=== PATIENT | female | born 1950 | race Caucasian/White ===

== ENCOUNTER 2016-06-10 09:29 | Outpatient (RCR) | payer MEDICARE ==
--- OUTSIDE RECORDS SUMMARY | 2016-03-18 09:58 | XMS REPORT | Continuity of Care Document ---
Author Author [facility] Organization [facility] Address Unknown Phone Unavailable Care Team Providers Care Housing Relocation Name Role Phone Merritt Palomino PCP Unavailable Source Comments Some departments are not documenting in the electronic medical record. If you do not see the information that you expected, contact Release of Information in the Health Information Management department at [phone] for further assistance in locating additional records.[facility] Active Allergies and Adverse Reactions Allergen Noted Date Severity Reactions Comments Ciprofloxacin 07/18/2008 Guaifenesin 07/18/2008 Macrodantin 07/18/2008 UNKNOWN Plaquenil 07/18/2008 Prevacid 07/18/2008 Quinolones 07/18/2008 Sulfa (Sulfonamide 07/18/2008 Antibiotics) Current Medications Prescription Sig. Disp. Refills Start End Date Status Date levothyroxine (SYNTHROID) Take 88 mcg by mouth Active 75 mcg PO tablet daily. CETIRIZINE HCL (ZYRTEC Take by mouth daily. Active PO) citalopram (CELEXA) 10 mg Take 10 mg by mouth Active PO tablet daily. Cholecalciferol (Vitamin Take 1 Cap by mouth. Active D3) (VITAMIN D) 2,000 unit PO Cap [place]-3 Fatty Take 2 Caps by mouth Active Acids-Vitamin E (FISH daily. OIL) 1,000 mg PO Cap folic acid (FOLVITE) 1 mg Take 1 mg by mouth daily. Active tablet pantoprazole DR Take 40 mg by mouth Active (PROTONIX) 40 mg tablet daily. Fenofibrate Micronized Take 130 mg by mouth Active 130 mg cap daily. atorvastatin (LIPITOR) 80 Take 80 mg by mouth Active mg tablet daily. aspirin EC 81 mg tablet Take 81 mg by mouth Active daily. COQ10 (UBIQUINOL) PO Take 1 Tab by mouth Active daily. 7-OXODEHYDROEPIANDROSTERO Use 2 Tabs as directed Active NE (7-KETO DHEA MISC) daily. BIOTIN (BULK) MISC Use 1 Tab as directed Active daily. PSEUDOEPHEDRINE HCL Take by mouth. Take this Active (SUDAFED 12 HOUR PO) in the AM METOPROLOL TARTRATE PO Take by mouth at bedtime Active daily. other medication 1 Dose. IBIG tx monthly Active Active Problems Problem Noted Date Nasal obstruction 06/02/2015 Nasal defect 01/21/2015 Basal cell carcinoma of nose 01/20/2015 Renal insufficiency 03/07/2014 Vitamin D deficiency 06/07/2013 Encounter for long-term (current) use of NSAIDs 07/12/2011 Joint pain 01/18/2011 Rheumatoid arthritis(714.0) 01/18/2011 Generalized osteoarthritis 01/18/2011 Encounter for long-term (current) use of high-risk medication 01/18/2011 Lymphoma (HCC) 01/18/2011 RA (rheumatoid arthritis) (HCC) Non Hodgkin's lymphoma (HCC) Most Recent Encounters Date Type Specialty Providers Description 03/14/2016 Office Visit Otolaryngology Kin Pierre MD Nasal defect (Primary Dx) Social History Tobacco Use Types Packs/Day Years Used Date Former Smoker Cigarettes 0.5 9 Quit: 05/29/1976 Smokeless Tobacco: Never Used Tobacco Cessation: Counseling Given: No Comments: Alcohol Use Drinks/Week oz/Week Comments Yes 1-2 Standard 0.6 - 1.2 occasional drinks or equivalent Last Filed Vital Signs Vital Sign Reading Time Taken Blood Pressure 120/77 03/14/2016 9:05 AM CDT Pulse 77 03/14/2016 9:05 AM CDT Temperature 36.6 C (97.9 F) 09/25/2015 8:13 AM CDT Respiratory Rate 16 09/25/2015 8:13 AM CDT Height 1.626 m (5' 4") 03/14/2016 9:05 AM CDT Weight 58.242 kg (128 lb 6.4 oz) 03/14/2016 9:05 AM CDT Body Mass Index 22.03 03/14/2016 9:05 AM CDT Oxygen Saturation 98% 01/22/2015 6:09 AM CDT Plan of Care Health Maintenance Due Date Last Done Comments Hepatitis C Screening 1950 Physical (Comprehensive) 1955 Exam Pertussis Vaccine 1959 Tetanus Vaccine 1965 Shingles Vaccine 2008 Breast Cancer Screening 07/21/2011 07/21/2009 Osteoporosis Screening 2013 Prevnar/Pneumovax (#1) 2013 Influenza Vaccine 01/28/2016 Colorectal Cancer 07/21/2019 07/21/2009 Screening Results from Last 3 Months Not on file
[2016-03-18 10:07] LABS: BASOPHILS # (AUTO) 0.2 10^3/uL (0.0-0.1); BASOPHILS % (AUTO) 2 % (0-10); EOSINOPHILS # (AUTO) 0.6 10^3/uL (0.0-0.3); EOSINOPHILS % (AUTO) 7 % (0-10); LYMPHOCYTES # (AUTO) 1.8 X 10^3 (1.0-4.0); LYMPHOCYTES % (AUTO) 21 % (12-44); MEAN CORPUSCULAR HEMOGLOBIN 30 PG (25-34); MEAN CORPUSCULAR HGB CONC 35 G/DL (32-36); MEAN CORPUSCULAR VOLUME 88 FL (80-99); MEAN PLATELET VOLUME 9.5 FL (7.4-10.4); MONOCYTES % (AUTO) 12 % (0-12); NEUTROPHILS # (AUTO) 4.9 X 10^3 (1.8-7.8); NEUTROPHILS % (AUTO) 58 % (42-75); PLATELET COUNT 561 10^3/uL (130-400); RED BLOOD COUNT 4.75 10^6/uL (4.35-5.85); RED CELL DISTRIBUTION WIDTH 14.9 % (10.0-14.5); WHITE BLOOD COUNT 8.6 10^3/uL (4.3-11.0)
[2016-03-18 10:35] LABS: ALBUMIN 4.6 G/DL (3.2-4.5); BILIRUBIN,TOTAL 0.5 MG/DL (0.1-1.0); CALCIUM 9.7 MG/DL (8.5-10.1); CREATININE SERUM 1.18 MG/DL (0.60-1.30); POTASSIUM 3.7 MMOL/L (3.6-5.0); TOTAL PROTEIN 6.5 G/DL (6.4-8.2)
[2016-03-19 02:55] LABS: IMMUNOGLOBULIN IGA 10 mg/dL (71-263); IMMUNOGLOBULIN IGG 271 mg/dL (672-1680)
[2016-03-21 09:49] LABS: IMMUNOGLOBULIN IGM 10 mg/dL (47-209)
[~2016-06-10 09:29] MED LIST: ACETAMINOPHEN 500 MG TAB (TYLENOL) CANCER CTR ONE; ACETAMINOPHEN 500 MG TAB (TYLENOL) PO SCH; ASP81TEC PO; ATOR80TA PO; CEPH-38 PO; CETI10TA17; CETI10TA17 PO; CHOL2000 PO; CITA10TA PO; CLAR-19 PO; CLPD75T PO; DIPH1TAB45 PO; FERR325C PO; FOLI0.8T PO; IMMUNE GLOBULIN,GAMMA (IGG) 200 ML IV SCH; IRBE300T9; LEVO75TA57 PO; LOSA100T7 PO; LRT10T PO; LSRT50T PO; LVT.025T PO; LVT.05T PO; NEBI5TAB8 PO; NF-ESOM40C PO; OMG1KC PO; OXYC-12 PO; PIRO20CA2 PO; PNT40TEC PO; PROBIOTIC1 EACH PO; SIMV20TA3 PO; diphenhydrAMINE 25 MG TAB (BENADRYL) CANCER CENTER PO ONE; diphenhydrAMINE 25 MG TAB (BENADRYL) PO SCH
[2016-06-10 09:48] LABS: BASOPHILS # (AUTO) 0.3 10^3/uL (0.0-0.1); BASOPHILS % (AUTO) 3 % (0-10); EOSINOPHILS # (AUTO) 0.4 10^3/uL (0.0-0.3); EOSINOPHILS % (AUTO) 4 % (0-10); LYMPHOCYTES # (AUTO) 1.7 X 10^3 (1.0-4.0); LYMPHOCYTES % (AUTO) 18 % (12-44); MEAN CORPUSCULAR HEMOGLOBIN 31 PG (25-34); MEAN CORPUSCULAR HGB CONC 34 G/DL (32-36); MEAN CORPUSCULAR VOLUME 90 FL (80-99); MEAN PLATELET VOLUME 10.5 FL (7.4-10.4); MONOCYTES # (AUTO) 0.9 X 10^3 (0.0-1.0); MONOCYTES % (AUTO) 9 % (0-12); NEUTROPHILS # (AUTO) 6.4 X 10^3 (1.8-7.8); NEUTROPHILS % (AUTO) 66 % (42-75); PLATELET COUNT 408 10^3/uL (130-400); RED BLOOD COUNT 4.53 10^6/uL (4.35-5.85); RED CELL DISTRIBUTION WIDTH 15.2 % (10.0-14.5); WHITE BLOOD COUNT 9.7 10^3/uL (4.3-11.0)
[2016-06-10 10:05] LABS: ALBUMIN 4.6 G/DL (3.2-4.5); BILIRUBIN,TOTAL 0.6 MG/DL (0.1-1.0); CALCIUM 10.2 MG/DL (8.5-10.1); CREATININE SERUM 1.32 MG/DL (0.60-1.30); POTASSIUM 3.9 MMOL/L (3.6-5.0)
[2016-06-11 03:50] LABS: IMMUNOGLOBULIN IGA 9 mg/dL (71-263); IMMUNOGLOBULIN IGG 758 mg/dL (672-1680)
[2016-06-13 08:23] LABS: IMMUNOGLOBULIN IGM 10 mg/dL (47-209)
== END 2016-06-16 | disposition home or self-care (01) ==
LOC: ONC 09:29
PROVIDERS: ATTEND Internal Medicine Hematology & Oncology
DX: C85.90 Non-Hodgkin lymphoma, unspecified, unspecified site (principal); D80.1 Nonfamilial hypogammaglobulinemia; M06.9 Rheumatoid arthritis, unspecified; N18.3 Chronic kidney disease, stage 3 (moderate); Z79.899 Other long term (current) drug therapy
CPT/HCPCS: 36415; 80053; 82784; 83615; 85025; 96365; 96366; 99213

== ENCOUNTER 2016-09-16 10:30 | Outpatient (RCR) | payer MEDICARE ==
--- OUTSIDE RECORDS SUMMARY | 2016-06-23 08:57 | XMS REPORT | Continuity of Care Document ---
Author Author [facility] Organization [facility] Address Unknown Phone Unavailable Care Team Providers Care Punch Finisher Name Role Phone Merritt Palomino PCP Unavailable Source Comments Some departments are not documenting in the electronic medical record. If you do not see the information that you expected, contact Release of Information in the Health Information Management department at [phone] for further assistance in locating additional records.[facility] Active Allergies and Adverse Reactions [...] D3) (VITAMIN D) 2,000 unit PO Cap [place]-3 Fatty Take 2 Caps by mouth Active [...] Recent Encounters Date Type Specialty Providers Description 05/24/2016 Office Visit Otolaryngology Kin Pierre MD Nasal defect (Primary Dx) 05/20/2016 Office Visit Otolaryngology Kin Pierre MD Nasal defect (Primary Dx); Nasal obstruction; Facial aging Social History Tobacco Use Types Packs/Day Years Used Date Former Smoker Cigarettes 0.5 9 Quit: 05/29/1976 Smokeless Tobacco: Never Used Tobacco Cessation: Counseling Given: No Comments: Alcohol Use Drinks/Week oz/Week Comments Yes 1-2 Standard 0.6 - 1.2 occasional drinks or equivalent Last Filed Vital Signs Vital Sign Reading Time Taken Blood Pressure 132/83 05/24/2016 9:06 AM RICE FARMER Pulse 69 05/24/2016 9:06 AM RICE FARMER Temperature 36.6 C (97.9 F) 09/25/2015 8:13 AM CDT Respiratory Rate 16 09/25/2015 8:13 AM CDT Height 1.626 m (5' 4") 05/24/2016 9:06 AM RICE FARMER Weight 59.966 kg (132 lb 3.2 oz) 05/24/2016 9:06 AM RICE FARMER Body Mass Index 22.68 05/24/2016 9:06 AM RICE FARMER Oxygen Saturation 98% 01/22/2015 6:09 AM CDT Plan of Care Date Type Specialty Providers Description 06/27/2016 Appointment Otolaryngology Kin Pierre MD [address] [facility] [address] [place] [address] [phone] (Fax) Health Maintenance Due Date Last Done Comments Hepatitis C Screening 1950 Physical (Comprehensive) 1955 Exam Pertussis Vaccine 1959 Tetanus Vaccine 1965 Shingles Vaccine 2008 Breast Cancer Screening 07/21/2010 07/21/2009 Osteoporosis Screening 2013 Prevnar/Pneumovax (#1) 2013 Influenza Vaccine 01/28/2016 Colorectal Cancer 07/21/2019 07/21/2009 Screening Results from Last 3 Months Not on file
[~2016-09-16 10:30] MED LIST changes: -ACETAMINOPHEN 500 MG TAB (TYLENOL) CANCER CTR ONE; +ACETAMINOPHEN 500 MG TAB (TYLENOL) CANCER CTR PO PRN; -ACETAMINOPHEN 500 MG TAB (TYLENOL) PO SCH; -diphenhydrAMINE 25 MG TAB (BENADRYL) CANCER CENTER PO ONE; +diphenhydrAMINE 25 MG TAB (BENADRYL) CANCER CENTER PO SCH; -diphenhydrAMINE 25 MG TAB (BENADRYL) PO SCH
[2016-09-16 10:48] LABS: BASOPHILS # (AUTO) 0.2 10^3/uL (0.0-0.1); BASOPHILS % (AUTO) 3 % (0-10); EOSINOPHILS # (AUTO) 0.3 10^3/uL (0.0-0.3); EOSINOPHILS % (AUTO) 4 % (0-10); LYMPHOCYTES # (AUTO) 2.2 X 10^3 (1.0-4.0); LYMPHOCYTES % (AUTO) 29 % (12-44); MEAN CORPUSCULAR HEMOGLOBIN 31 PG (25-34); MEAN CORPUSCULAR HGB CONC 34 G/DL (32-36); MEAN CORPUSCULAR VOLUME 90 FL (80-99); MEAN PLATELET VOLUME 10.7 FL (7.4-10.4); MONOCYTES # (AUTO) 0.8 X 10^3 (0.0-1.0); MONOCYTES % (AUTO) 11 % (0-12); NEUTROPHILS # (AUTO) 4.1 X 10^3 (1.8-7.8); NEUTROPHILS % (AUTO) 54 % (42-75); PLATELET COUNT 417 10^3/uL (130-400); RED BLOOD COUNT 4.31 10^6/uL (4.35-5.85); RED CELL DISTRIBUTION WIDTH 15.1 % (10.0-14.5); WHITE BLOOD COUNT 7.5 10^3/uL (4.3-11.0)
[2016-09-16 11:08] LABS: ALBUMIN 4.2 G/DL (3.2-4.5); BILIRUBIN,TOTAL 0.5 MG/DL (0.1-1.0); CALCIUM 9.4 MG/DL (8.5-10.1); CREATININE SERUM 1.42 MG/DL (0.60-1.30); TOTAL PROTEIN 6.5 G/DL (6.4-8.2)
[2016-09-17 02:21] LABS: IMMUNOGLOBULIN IGA 7 mg/dL (71-263); IMMUNOGLOBULIN IGG 838 mg/dL (672-1680)
[2016-09-17 15:41] LABS: IMMUNOGLOBULIN IGM 12 mg/dL (47-209)
== END 2016-09-21 | disposition home or self-care (01) ==
LOC: ONC 10:30
PROVIDERS: ATTEND Internal Medicine Hematology & Oncology
DX: C85.90 Non-Hodgkin lymphoma, unspecified, unspecified site (principal); D80.1 Nonfamilial hypogammaglobulinemia; M06.9 Rheumatoid arthritis, unspecified; N18.3 Chronic kidney disease, stage 3 (moderate); Z79.899 Other long term (current) drug therapy
CPT/HCPCS: 36415; 80053; 82784; 84443; 85025; 96365; 96366; 99213

== ENCOUNTER 2017-06-30 09:28 | Outpatient (RCR) | payer MEDICARE ==
[2017-04-07 09:06] LABS: BASOPHILS # (AUTO) 0.2 10^3/uL (0.0-0.1); BASOPHILS % (AUTO) 1 % (0-10); EOSINOPHILS # (AUTO) 0.4 10^3/uL (0.0-0.3); EOSINOPHILS % (AUTO) 2 % (0-10); HEMATOCRIT 42 % (35-52); HEMOGLOBIN 14.4 G/DL (11.5-16.0); LYMPHOCYTES # (AUTO) 2.7 X 10^3 (1.0-4.0); LYMPHOCYTES % (AUTO) 16 % (12-44); MEAN CORPUSCULAR HEMOGLOBIN 31 PG (25-34); MEAN CORPUSCULAR HGB CONC 34 G/DL (32-36); MEAN CORPUSCULAR VOLUME 91 FL (80-99); MEAN PLATELET VOLUME 9.1 FL (7.4-10.4); MONOCYTES # (AUTO) 1.4 X 10^3 (0.0-1.0); MONOCYTES % (AUTO) 8 % (0-12); NEUTROPHILS # (AUTO) 12.5 X 10^3 (1.8-7.8); NEUTROPHILS % (AUTO) 73 % (42-75); PLATELET COUNT 611 10^3/uL (130-400); RED CELL DISTRIBUTION WIDTH 14.2 % (10.0-14.5); WHITE BLOOD COUNT 17.1 10^3/uL (4.3-11.0)
[2017-04-07 09:26] LABS: ALBUMIN 4.5 GM/DL (3.2-4.5); BILIRUBIN,TOTAL 0.6 MG/DL (0.1-1.0); CALCIUM 10.1 MG/DL (8.5-10.1); CREATININE SERUM 1.11 MG/DL (0.60-1.30); POTASSIUM 3.8 MMOL/L (3.6-5.0); TOTAL PROTEIN 6.7 GM/DL (6.4-8.2)
[2017-06-22 12:23] LABS: BASOPHILS # (AUTO) 0.2 10^3/uL (0.0-0.1); BASOPHILS % (AUTO) 2 % (0-10); EOSINOPHILS # (AUTO) 0.3 10^3/uL (0.0-0.3); EOSINOPHILS % (AUTO) 3 % (0-10); HEMATOCRIT 41 % (35-52); HEMOGLOBIN 14.2 G/DL (11.5-16.0); LYMPHOCYTES # (AUTO) 3.2 X 10^3 (1.0-4.0); LYMPHOCYTES % (AUTO) 30 % (12-44); MEAN CORPUSCULAR HEMOGLOBIN 32 PG (25-34); MEAN CORPUSCULAR HGB CONC 35 G/DL (32-36); MEAN CORPUSCULAR VOLUME 91 FL (80-99); MEAN PLATELET VOLUME 10.2 FL (7.4-10.4); MONOCYTES # (AUTO) 0.8 X 10^3 (0.0-1.0); MONOCYTES % (AUTO) 7 % (0-12); NEUTROPHILS # (AUTO) 6.3 X 10^3 (1.8-7.8); NEUTROPHILS % (AUTO) 59 % (42-75); PLATELET COUNT 448 10^3/uL (130-400); RED BLOOD COUNT 4.49 10^6/uL (4.35-5.85); RED CELL DISTRIBUTION WIDTH 14.4 % (10.0-14.5); WHITE BLOOD COUNT 10.8 10^3/uL (4.3-11.0)
[2017-06-22 12:43] LABS: ALBUMIN 4.4 GM/DL (3.2-4.5); BILIRUBIN,TOTAL 0.6 MG/DL (0.1-1.0); CALCIUM 10.2 MG/DL (8.5-10.1); CREATININE SERUM 1.06 MG/DL (0.60-1.30); POTASSIUM 4.4 MMOL/L (3.6-5.0); TOTAL PROTEIN 7.4 GM/DL (6.4-8.2)
== END 2017-07-06 | disposition home or self-care (01) ==
LOC: ONC 09:28
PROVIDERS: ATTEND Internal Medicine Hematology & Oncology
DX: C85.90 Non-Hodgkin lymphoma, unspecified, unspecified site (principal); D80.1 Nonfamilial hypogammaglobulinemia; M06.9 Rheumatoid arthritis, unspecified; N18.3 Chronic kidney disease, stage 3 (moderate); Z79.899 Other long term (current) drug therapy
CPT/HCPCS: 36415; 80053; 82784; 85025; 96365; 96366; 99213

== ENCOUNTER 2017-07-28 09:20 | Outpatient (RCR) | payer MEDICARE | END 2017-08-23 13:19 | disposition home or self-care (01) | LOC: ONC 09:20 | PROVIDERS: ATTEND Internal Medicine Hematology & Oncology | DX: C85.90 Non-Hodgkin lymphoma, unspecified, unspecified site (principal); D80.1 Nonfamilial hypogammaglobulinemia; M06.9 Rheumatoid arthritis, unspecified; N18.3 Chronic kidney disease, stage 3 (moderate); Z79.899 Other long term (current) drug therapy | CPT/HCPCS: 96365; 96366 ==

== ENCOUNTER 2017-09-28 10:09 | Day surgery (SDC) | payer MEDICARE ==
[2017-09-28] VITALS (13 sets, daily range): BP systolic 90–135; BP diastolic 59–90
[~2017-09-28] VITALS: Ht 162.6 cm; Wt 59.0 kg
[~2017-09-28 10:09] MED LIST changes: -ACETAMINOPHEN 500 MG TAB (TYLENOL) CANCER CTR PO PRN; -IMMUNE GLOBULIN,GAMMA (IGG) 200 ML IV SCH; -diphenhydrAMINE 25 MG TAB (BENADRYL) CANCER CENTER PO SCH
[2017-09-28 10:25] LABS: BASOPHILS # (AUTO) 0.2 10^3/uL (0.0-0.1); BASOPHILS % (AUTO) 2 % (0-10); EOSINOPHILS # (AUTO) 0.3 10^3/uL (0.0-0.3); EOSINOPHILS % (AUTO) 3 % (0-10); HEMATOCRIT 39 % (35-52); HEMOGLOBIN 13.8 G/DL (11.5-16.0); LYMPHOCYTES # (AUTO) 3.9 X 10^3 (1.0-4.0); LYMPHOCYTES % (AUTO) 36 % (12-44); MEAN CORPUSCULAR HEMOGLOBIN 32 PG (25-34); MEAN CORPUSCULAR HGB CONC 35 G/DL (32-36); MEAN CORPUSCULAR VOLUME 90 FL (80-99); MEAN PLATELET VOLUME 10.3 FL (7.4-10.4); MONOCYTES # (AUTO) 0.8 X 10^3 (0.0-1.0); MONOCYTES % (AUTO) 8 % (0-12); NEUTROPHILS # (AUTO) 5.7 X 10^3 (1.8-7.8); NEUTROPHILS % (AUTO) 52 % (42-75); PLATELET COUNT 356 10^3/uL (130-400); RED BLOOD COUNT 4.35 10^6/uL (4.35-5.85); RED CELL DISTRIBUTION WIDTH 14.9 % (10.0-14.5)
[2017-09-28] MEDS ORDERED: NITROGLYCERIN 0.4 MG SL TABS BTL 25'S SL PRN (10:30)
[2017-09-28] MEDS ORDERED: ASPIRIN 81 MG CHEW (CHILDREN'S ASA) PO ONE (10:30)
[2017-09-28 10:43] LABS: INR 0.9 (0.8-1.4); PROTHROMBIN TIME PATIENT 11.9 SEC (12.2-14.7)
[2017-09-28 10:51] LABS: ALANINE AMINOTRANSFERASE 26 U/L (0-55); ALBUMIN 4.7 GM/DL (3.2-4.5); ALKALINE PHOSPHATASE 74 U/L (40-136); BILIRUBIN,TOTAL 0.9 MG/DL (0.1-1.0); BUN/CREATININE RATIO 17; CARBON DIOXIDE 25 MMOL/L (21-32); CHLORIDE 106 MMOL/L (98-107); CREATININE SERUM 0.98 MG/DL (0.60-1.30); GFR ESTIMATED 56; GLUCOSE 95 MG/DL (70-105); MAGNESIUM 2.3 MG/DL (1.8-2.4); POTASSIUM 3.1 MMOL/L (3.6-5.0); SODIUM 142 MMOL/L (135-145); TOTAL PROTEIN 7.2 GM/DL (6.4-8.2)
--- NOTE | 2017-09-28 10:57 | Diagnostic Imaging Report ---
INDICATION: Chest pain. TIME OF EXAM: 10:32 AM Correlation is made with prior study from 11/03/2014. FINDINGS: Changes of median sternotomy and CABG are noted. The heart size is stable. The lungs are clear. No infiltrate or failure is seen. No effusion or pneumothorax is identified. IMPRESSION: No acute cardiopulmonary process is detected. Dictated by: Dictated on workstation # [id number]
[2017-09-28 10:58] LABS: MYOGLOBIN SERUM 247.8 NG/ML (10.0-92.0)
--- NOTE | 2017-09-28 11:20 | ED Chest Pain ---
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 Nursing Sepsis Screen: No Definite Risk Source: patient, old records Exam Limitations: no limitations History of Present Illness Date Seen by Provider: September 28, 2017 Time Seen by Provider: 10:11 Initial Comments This 67-year-old woman with known coronary artery disease status post CABG presents to the emergency room with complaints of chest pain that started about 15 minutes prior to arrival. She rates the pain at about 5/10. She has not yet taken aspirin today. She does not take nitroglycerin at home. She had a cardiac catheterization in 2013 for treatment of STEMI demonstrating occlusion of a vein graft. The vein graft was opened with thrombectomy and angioplasty. She had a stress test March 2016 showing no significant ischemia or infarct. Ejection fraction was 61 percent. Patient denies any associated symptoms such as shortness of breath, diaphoresis, lightheadedness, nausea, etc. Her primary bottle washer machine is Dr. Messer. Allergies and Home Medications Allergies Coded Allergies: Iodinated Contrast- Oral and IV Dye (Verified Allergy, Intermediate, hives , 11/04/13) Sulfa (Sulfonamide Antibiotics) (Verified Allergy, Unknown, 10/21/08) ciprofloxacin (Verified Allergy, Unknown, 10/21/08) guaifenesin (Verified Allergy, Unknown, 10/21/08) hydroxychloroquine (Verified Allergy, Unknown, 10/21/08) iopamidol (Verified Allergy, Unknown, 10/21/08) nitrofurantoin (Verified Allergy, Unknown, 10/21/08) Home Medications Amlodipine Besylate 5 Mg Tablet, 5 MG PO DAILY, (Reported) Aspirin 81 Mg Tablet.dr, 81 MG PO HS, (Reported) Atorvastatin Calcium 40 Mg Tablet, 40 MG PO HS, (Reported) Atorvastatin Calcium 80 Mg Tablet, 80 MG PO HS Prescribed by: ZIA MESSER on 09/28/17 8281 Cholecalciferol (Vitamin D3) 2,000 Unit Capsule, 2,000 UNIT PO DAILY, (Reported) Citalopram Hydrobromide 10 Mg Tablet, 10 MG PO DAILY, (Reported) Fenofibrate,Micronized 67 Mg Capsule, 67 MG PO HS, (Reported) Fish Oil/Dha/Epa 1 Each Capsule, 1,200 MG PO BID, (Reported) Levothyroxine Sodium 88 Mcg Tablet, 88 MCG PO DAILY, (Reported) Liraglutide 0.6 Mg/0.1 Ml Pen.injctr, 0.9-1.2 MG SC HS, (Reported) Loratadine 10 Mg Tablet, 10 MG PO DAILY PRN for ALLERGIES, (Reported) Metoprolol Succinate 50 Mg Tab.er.24h, 50 MG PO HS, (Reported) Ticagrelor 90 Mg Tablet, 90 MG PO BID Prescribed by: ZIA MESSER on 09/28/17 9822 Patient Home Medication List Home Medication List Reviewed: Yes Review of Systems Constitutional: no symptoms reported EENTM: No Symptoms Reported Respiratory: No Symptoms Reported Cardiovascular: See HPI Gastrointestinal: No Symptoms Reported Genitourinary: No Symptoms Reported Musculoskeletal: no symptoms reported Skin: no symptoms reported Psychiatric/Neurological: No Symptoms Reported Endocrine: No Symptoms Reported Past Rhgqlll-Rffakk-Szyini Hx Patient Social History Alcohol Use: Occasionally Uses Recreational Drug Use: No Smoking Status: Never a Smoker Recent Foreign Travel: No Contact w/Someone Who Travel: No Recent Infectious Disease Expo: No Recent Hopitalizations: Yes Immunizations Up To Date Tetanus Booster (TDap): Unknown Date of Pneumonia Vaccine: Aug 09, 2010 Past Medical History Abdominal, CABG, Gallbladder, Orthopedic Respiratory: No Cardiac: Yes (TRIPLE BYPASS 10/2013) Hypertension Neurological: No Reproductive Disorders: No (HYST) Gastrointestinal: Yes (GB REMOVED, INCISIONAL HERNIA'S) Gall Bladder Disease Musculoskeletal: Yes Osteoporosis, Arthritis Endocrine: Yes (AUTO IMMUNE DEFINICY SEE DR FRANCO) Hypothyroidsim Cancer: Yes ( nonhodgekins lymphoma) Skin Psychosocial: No Integumentary: No Blood Disorders: No Adverse Reaction/Blood Tranf: No Physical Exam Vital Signs Vital Signs - First Documented 09/28/17 10:09 Temp 97.1 Pulse 92 Resp 18 B/P (MAP) 170/103 (125) Pulse Ox 98 O2 Delivery Room Air Capillary Refill : Less Than 3 Seconds General Appearance: No Apparent Distress, WD/WN, Thin HEENT: PERRL/EOMI, Normal ENT Inspection Respiratory: Chest Non Tender, Lungs Clear, Normal Breath Sounds, No Accessory Muscle Use, No Respiratory Distress Cardiovascular: Regular Rate, Rhythm, No Edema, No Murmur Gastrointestinal: Normal Bowel Sounds, Non Tender, Soft Extremity: Normal Capillary Refill, Normal Inspection, Non Tender, No Calf Tenderness Neurologic/Psychiatric: Alert, Oriented x3, No Motor/Sensory Deficits, Normal Mood/Affect, client engagement specialist II-XII Norm as Tested Skin: Normal Color, Warm/Dry Progress/Results/Core Measures Lab Results Laboratory Tests Test 09/28/17 10:18 Range/Units White Blood Count 11.0 4.3-11.0 10^3/uL Red Blood Count 4.35 4.35-5.85 10^6/uL Hemoglobin 13.8 11.5-16.0 G/DL Hematocrit 39 35-52 % Mean Corpuscular Volume 90 80-99 FL Mean Corpuscular Hemoglobin 32 25-34 PG Mean Corpuscular Hemoglobin Concent 35 32-36 G/DL Red Cell Distribution Width 14.9 H 10.0-14.5 % Platelet Count 356 130-400 10^3/uL Mean Platelet Volume 10.3 7.4-10.4 FL Neutrophils (%) (Auto) 52 42-75 % Lymphocytes (%) (Auto) 36 12-44 % Monocytes (%) (Auto) 8 0-12 % Eosinophils (%) (Auto) 3 0-10 % Basophils (%) (Auto) 2 0-10 % Neutrophils # (Auto) 5.7 1.8-7.8 X 10^3 Lymphocytes # (Auto) 3.9 1.0-4.0 X 10^3 Monocytes # (Auto) 0.8 0.0-1.0 X 10^3 Eosinophils # (Auto) 0.3 0.0-0.3 10^3/uL Basophils # (Auto) 0.2 H 0.0-0.1 10^3/uL Prothrombin Time 11.9 L 12.2-14.7 SEC INR Comment 0.9 0.8-1.4 Activated Partial Thromboplast Time 29 24-35 SEC Sodium Level 142 135-145 MMOL/L Potassium Level 3.1 L 3.6-5.0 MMOL/L Chloride Level 106 98-107 MMOL/L Carbon Dioxide Level 25 21-32 MMOL/L Anion Gap 11 5-14 MMOL/L Blood Urea Nitrogen 17 7-18 MG/DL Creatinine 0.98 0.60-1.30 MG/DL Estimat Glomerular Filtration Rate 56 BUN/Creatinine Ratio 17 Glucose Level 95 70-105 MG/DL Calcium Level 10.0 8.5-10.1 MG/DL Magnesium Level 2.3 1.8-2.4 MG/DL Total Bilirubin 0.9 0.1-1.0 MG/DL Aspartate Amino Transf (AST/SGOT) 56 H 5-34 U/L Alanine Aminotransferase (ALT/SGPT) 26 0-55 U/L Alkaline Phosphatase 74 40-136 U/L Myoglobin 247.8 H 10.0-92.0 NG/ML Troponin I < 0.30 <0.30 NG/ML Total Protein 7.2 6.4-8.2 GM/DL Albumin 4.7 H 3.2-4.5 GM/DL Smear Scan My Orders Orders - KATRIN NEGRON MD Cbc With Automated Diff (09/28/17 10:11) Magnesium (09/28/17 10:11) O2 (09/28/17 10:11) Monitor-Rhythm Ecg Trace Only (09/28/17 10:11) Saline Lock/Iv-Start (09/28/17 10:11) Chest 1 View, Ap/Pa Only (09/28/17 10:11) Ekg Tracing (09/28/17 10:11) Cardiac Profile 1 (09/28/17 10:11) Comprehensive Metabolic Panel (09/28/17 10:11) Myoglobin Serum (09/28/17 10:11) Protime With Inr (09/28/17 10:11) Partial Thromboplastin Time (09/28/17 10:11) Lipid Panel (09/29/17 06:00) Aspirin Chewable Tablet (Baby Aspirin Ch (09/28/17 10:30) Nitroglycerin 0.4 Mg Btl 25's (Nitrostat (09/28/17 10:30) Medications Given in ED Current Medications Medications Dose Ordered Sig/Alyson Route Start Time Stop Time Status Last Admin Dose Admin Aspirin 324 mg ONCE ONCE PO 09/28/17 10:30 09/28/17 10:31 DC 09/28/17 10:28 324 MG Nitroglycerin 0.4 mg UD PRN SL 09/28/17 10:30 09/28/17 15:02 DC 09/28/17 10:28 0.4 MG Vital Signs/I&O 09/28/17 09/28/17 10:09 10:57 Temp 97.1 Pulse 92 74 Resp 18 18 B/P (MAP) 170/103 (125) 132/76 (94) Pulse Ox 98 100 O2 Delivery Room Air Room Air Blood Pressure Mean: 94 Progress Note #1: Time: 11:15 Progress Note Patient received aspirin and nitroglycerin. She had a hypotensive response to the nitroglycerin with a systolic blood pressure dropped down to 86. She had worsening and chest pain with the hypotension. Pain then eased again. She has had a fluctuating pain throughout her ER stay which she rates anywhere from 2-5/ 10. A repeat EKG was performed at 11:05. There were no dynamic changes. Case was reviewed with Dr. Messer who is not immediately accessible. He requested I consulted Dr. Shepard. Dr. Shepard was contacted and will present to the ER to assess the patient. Progress Note #2: Time: 11:[address] Messer was able to present to the ER. He has assessed the patient and together and they elect to proceed with cardiac catheterization. Chest pain is minimal at this time. EKG #1: EKG Time: 10:15 Rate: 87 Rhythm: Normal Sinus Intervals: Normal Comment Normal sinus rhythm with no ST elevation or depression. Borderline QT intervals. No abnormal intervals or axis deviation. EKG #2: EKG Time: 11:05 Rate: 76 Rhythm: Normal Sinus Comment Normal sinus rhythm with no dynamic changes from prior. No ST elevation or depression. Prolonged QT interval with QTC of 513. No axis deviation. Diagonstic Imaging: Xray Plain Films/CT/US/NM/MRI: chest Comments Chest x-ray viewed by me and report reviewed. See report below: NAME: [facility] REC#: [id number] PT STATUS: REG ER : 1950 PHYSICIAN: KATRIN NEGRON MD ADMIT DATE: 09/28/17/ER Draft Date of Exam:09/28/17 CHEST 1 VIEW, AP/PA ONLY INDICATION: Chest pain. TIME OF EXAM: 10:32 AM Correlation is made with prior study from 11/03/2014. FINDINGS: Changes of median sternotomy and CABG are noted. The heart size is stable. The lungs are clear. No infiltrate or failure is seen. No effusion or pneumothorax is identified. IMPRESSION: No acute cardiopulmonary process is detected. Dictated on workstation # [id number] Dict: 09/28/17 1052 Trans: 09/28/17 1056 [id number] Interpreted by: CLAY BARNARD MD Departure Impression Primary Impression: Chest pain on exertion Additional Impression: Coronary artery disease Qualified Codes: I25.10 - Atherosclerotic heart disease of [place] coronary artery without angina pectoris Disposition: ADMITTED INPATIENT Condition: Stable Admissions Decision to Admit Reason: Admit from ER (General) Decision to Admit/Date: September 28, 2017 Time/Decision to Admit Time: 10:15 Departure-Patient Inst. Referrals: RAYMOND GARCIA DO (PCP/Family) Primary Care Physician Scripts Atorvastatin Calcium (Atorvastatin Calcium) 80 Mg Tablet 80 MG PO HS, #30 TAB 4 Refills Prov: ZIA MESSER MD 09/28/17 Ticagrelor (Brilinta) 90 Mg Tablet 90 MG PO BID, #60 TAB 6 Refills Prov: ZIA MESSER MD 09/28/17 KATRIN NEGRON MD September 28, 2017 11:20
--- OUTSIDE RECORDS SUMMARY | 2017-09-28 12:16 | XMS REPORT | Continuity of Care Document ---
Author Author [facility] Organization [facility] Address Unknown Phone Unavailable Care Team Providers Care Utility Supervisor [employer] Name Role Phone [employer] Unavailable Unavailable Problems Medications Allergies, Adverse Reactions, Alerts Immunizations Results Vital Signs Encounters Location Location Details Encounter Type Encounter Number Reason For Visit Attending Provider ADM Date DC Date Status Source OUTPATIENT [id number] Kin BLISS 08/21/2015 08/21/2015 Active [facility] OUTPATIENT [id number] FREDY MASSEY 08/01/20172017 Active [facility] Kati ROSARIO 01/30/2018 Active [facility] Procedures Plan of Care Social History Assessment and Plan Family History Advance Directives Functional Status
--- NOTE | 2017-09-28 12:17 | Consultation-Cardiology ---
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 Has been doing well. Had a stress test done in March 2016 showing mild apical ischemia otherwise no significant abnormality. Has been feeling well until this morning when she started having chest pain described it as tightness in the retrosternal area and left side of her chest persistent, came into the emergency room and given sublingual nitroglycerin which cause significant hypotension. Chest pain persisted but improved, upper my evaluation she was feeling better, still having mild discomfort in her chest. Admit having some shortness of breath during the chest pain episode. No palpitation, syncope or near syncopal episodes. No claudications. Home Medications & Allergies Allergies: Coded Allergies: Iodinated Contrast- Oral and IV Dye (Verified Allergy, Intermediate, hives , 11/04/13) Sulfa (Sulfonamide Antibiotics) (Verified Allergy, Unknown, 10/21/08) ciprofloxacin (Verified Allergy, Unknown, 10/21/08) guaifenesin (Verified Allergy, Unknown, 10/21/08) hydroxychloroquine (Verified Allergy, Unknown, 10/21/08) iopamidol (Verified Allergy, Unknown, 10/21/08) nitrofurantoin (Verified Allergy, Unknown, 10/21/08) Home Medication List Reviewed: Yes [id number] Hx Patient Social History Marital Status: Employed/Student: employed Alcohol Use: Occasionally Uses Recreational Drug Use: No Smoking Status: Never a Smoker Recent Foreign Travel: No Recent Infectious Disease Expo: No Recent Hopitalizations: Yes Immunizations Up To Date Tetanus Booster (TDap): Unknown Date of Pneumonia Vaccine: Aug 09, 2010 Past Medical History Past medical history as discussed below Family Medical History Family Medical Hx Noncontributory to her current condition Constitutional: no symptoms reported, see HPI EENTM: see HPI Respiratory: see HPI; No cough, No dyspnea on exertion, No hemoptysis, No orthopnea, No phlegm; short of breath (with the chest pain); No stridor, No wheezing, No other Cardiovascular: see HPI, chest pain; No edema, No Hx of Intervention, No palpitations, No syncope, No vascular heart diseas, No other Gastrointestinal: no symptoms reported, see HPI Genitourinary: no symptoms reported, see HPI Musculoskeletal: no symptoms reported, see HPI Skin: no symptoms reported, see HPI Psychiatric/Neurological: No Symptoms Reported, See HPI Reviewed Test Results Reviewed Test Results Lab Laboratory Tests Test 09/28/17 10:18 Range/Units White Blood Count 11.0 4.3-11.0 10^3/uL Red Blood Count 4.35 4.35-5.85 10^6/uL Hemoglobin 13.8 11.5-16.0 G/DL Hematocrit 39 35-52 % Mean Corpuscular Volume 90 80-99 FL Mean Corpuscular Hemoglobin 32 25-34 PG Mean Corpuscular Hemoglobin Concent 35 32-36 G/DL Red Cell Distribution Width 14.9 H 10.0-14.5 % Platelet Count 356 130-400 10^3/uL Mean Platelet Volume 10.3 7.4-10.4 FL Neutrophils (%) (Auto) 52 42-75 % Lymphocytes (%) (Auto) 36 12-44 % Monocytes (%) (Auto) 8 0-12 % Eosinophils (%) (Auto) 3 0-10 % Basophils (%) (Auto) 2 0-10 % Neutrophils # (Auto) 5.7 1.8-7.8 X 10^3 Lymphocytes # (Auto) 3.9 1.0-4.0 X 10^3 Monocytes # (Auto) 0.8 0.0-1.0 X 10^3 Eosinophils # (Auto) 0.3 0.0-0.3 10^3/uL Basophils # (Auto) 0.2 H 0.0-0.1 10^3/uL Prothrombin Time 11.9 L 12.2-14.7 SEC INR Comment 0.9 0.8-1.4 Activated Partial Thromboplast Time 29 24-35 SEC Sodium Level 142 135-145 MMOL/L Potassium Level 3.1 L 3.6-5.0 MMOL/L Chloride Level 106 98-107 MMOL/L Carbon Dioxide Level 25 21-32 MMOL/L Anion Gap 11 5-14 MMOL/L Blood Urea Nitrogen 17 7-18 MG/DL Creatinine 0.98 0.60-1.30 MG/DL Estimat Glomerular Filtration Rate 56 BUN/Creatinine Ratio 17 Glucose Level 95 70-105 MG/DL Calcium Level 10.0 8.5-10.1 MG/DL Magnesium Level 2.3 1.8-2.4 MG/DL Total Bilirubin 0.9 0.1-1.0 MG/DL Aspartate Amino Transf (AST/SGOT) 56 H 5-34 U/L Alanine Aminotransferase (ALT/SGPT) 26 0-55 U/L Alkaline Phosphatase 74 40-136 U/L Myoglobin 247.8 H 10.0-92.0 NG/ML Troponin I < 0.30 <0.30 NG/ML Total Protein 7.2 6.4-8.2 GM/DL Albumin 4.7 H 3.2-4.5 GM/DL Smear Scan Physical Exam Vital Signs Vital Signs - First Documented 09/28/17 09/28/17 10:09 14:15 Temp 97.1 Pulse 92 Resp 18 B/P (MAP) 170/103 (125) Pulse Ox 98 O2 Delivery Room Air O2 Flow Rate 3.00 Capillary Refill : Less Than 3 Seconds General Appearance: No Apparent Distress, WD/WN Eyes: Bilateral Eye Normal Inspection, Bilateral Eye PERRL, Bilateral Eye EOMI HEENT: PERRL/EOMI, TMs Normal, Normal ENT Inspection, Pharynx Normal Neck: Full Range of Motion, Normal Inspection, Non Tender, Supple, Carotid Bruit Respiratory: Chest Non Tender, Lungs Clear, Normal Breath Sounds, No Accessory Muscle Use, No Respiratory Distress Cardiovascular: Regular Rate, Rhythm, No Edema, No Gallop, No JVD, No Murmur, Normal Peripheral Pulses Gastrointestinal: Normal Bowel Sounds, No Organomegaly, No Pulsatile Mass, Non Tender, Soft Back: Normal Inspection, No CVA Tenderness, No Vertebral Tenderness Extremity: Normal Capillary Refill, Normal Inspection, Normal Range of Motion, Non Tender, No Calf Tenderness, No Pedal Edema Neurologic/Psychiatric: Alert, Oriented x3, No Motor/Sensory Deficits, Normal Mood/Affect Skin: Normal Color, Warm/Dry Lymphatic: No Adenopathy A/P-Cardiology Admission Diagnosis Unstable angina Coronary artery disease Hypertension Hyperlipidemia Assessment/Plan Chest pain, resembling angina, unstable angina, still having waxing and waning active chest pain, mild elevation in myoglobin, troponin is still negative, EKG was showing nondiagnostic changes. I discussed with the patient the measured department at cardiac catheterization possible PTCA. She will be unable to tolerate stress test due to the active chest pain. Coronary artery disease-history of AMI underwent CABG [address] Cleaning on November 06, 2013. On December 03, [address] elevation myocardial infarction involving the inferior wall. She underwent emergent cardiac catheterization which revealed total occlusion of the vein graft to circumflex artery. Successful emergent thrombectomy, then balloon angioplasty with excellent flow in the distal circumflex artery after intervention. There is patent vein graft diagonal artery. Severe disease in the [place] proximal LAD and proximal circumflex proximal artery. Nonobstructive disease in the RCA. KAPLAN was not evaluated. Stress test done in March 2016 which showed fair exercise tolerance for a total of 6 minutes and 30 seconds on Juan C protocol, breast attenuation with mild decreased uptake at the true apex with subtle reversibility, no significant ischemia, normal LV function, echocardiogram showed normal LV size with mild hypokinesia at the mid to apical wall and anterolateral wall with ejection fraction 50 percent, mild aortic regurgitation , mild MR, TR, PA 30 mmHg. Eh to proceed with cardiac catheterization Hypertension, status post transient hypotension after receiving one sublingual nitroglycerin, blood pressure is better now. I will continue monitoring and restart her home medications Hyperlipidemia, maintained on Lipitor 40 mg daily and fenofibrate 67 mg, I will evaluate lipid profile Mild bilateral carotid stenosis, nonobstructive disease, last ultrasound was done in February 2016, continue to monitor as an outpatient Chronic renal insufficiency-continue monitor renal function, followed by primary care physician History of non-Hodgkin's lymphoma, history of splenectomy and chemotherapy, finished chemotherapy in 2002 and has been in remission, followed and managed by Dr. Zamorano and [place] Basal cell carcinoma of the nose, underwent reconstructive surgery, extensive surgery, doing well recovering well, followed by Dr. Joiner Hypothyroidism, managed and followed by Dr. Hatfield. History of hypogammaglobulinemia receiving Gammagrad 20 g IV monthly, followed by Dr. Joiner Hospital course Patient was admitted for cardiac catheterization which was carried out showing severe stenosis at the proximal portion of the vein graft to the second obtuse marginal branch and severe stenosis at the mid posterolateral branch, both arteries are connected through collaterals. The vein graft to the first obtuse marginal branch is patent and the K[place] to the LAD is patent, left ventricular function is normal. Patient was admitted and monitored, has been feeling better but her troponin returned to be elevated on the second set of 0.7. Decision was made to transfer her to tertiary care center for high risk intervention on the vein graft and possible posterolateral branch of the right coronary artery. I discussed the management plan with the patient and her family, all questions were answered. Discussed the management plan with Dr. Jeronimo. Final diagnosis Non-ST elevation myocardial infarction Coronary artery disease Hypertension Hyperlipidemia Diabetes mellitus Clinical Quality Measures AMI/AHF: ASA po Prior to arrival: ZIA Sánchez MD September 28, 2017 12:17 pm
--- OUTSIDE RECORDS SUMMARY | 2017-09-28 12:17 | XMS REPORT | Encounter Summary ---
Author Author [facility] Organization [facility] Address Unknown Phone Unavailable Care Team Providers Care Library Specialist Name Role Phone Ritika Hall MD Unavailable Zandra King APRN Unavailable Unavailable Syeda Cruz MD Unavailable Lucero Bueno MD Unavailable Dayron Jioner MD Unavailable Paige Carlson RN Unavailable Unavailable Kin Pierre MD Unavailable Oscar Hernandez RN Unavailable Unavailable Will Hatfield MD PCP Encounter Details Date Type Department Care Team Description 08/01/2017 Hospital [facility] Danielito Brumfield MD Rheumatoid arthritis, Encounter [address] unspecified (HCC) [place] [address] [address] [place] [address] [phone] Social History Tobacco Use Types Packs/Day Years Used Date Former Smoker Cigarettes 0.5 9 Quit: 05/29/1976 Smokeless Tobacco: Never Used Alcohol Use Drinks/Week oz/Week Comments Yes 1-2 Standard 0.6 - 1.2 occasional drinks or equivalent Sex Assigned at Date Recorded Not on file as of this encounter Functional Status Functional Status Response Date of Assessment Does the patient have a hearing impairment: No 01/22/2015 Does the patient have a visual impairment: No 01/22/2015 Does the patient have impaired ambulation: No 01/22/2015 Does the patient have an activity of daily living No 01/22/2015 (ADL) impairment: Does the patient have an instrumental activity of No 01/22/2015 daily living (IADL) impairment: Cognitive Status Response Date of Assessment Does the patient have a cognitive impairment: No 01/22/2015 as of this encounter Medications at Time of Discharge Medication Sig. Disp. Refills Start Date End Date aspirin EC 81 mg tablet Take 81 mg by mouth daily. atorvastatin (LIPITOR) 80 Take 80 mg by mouth mg tablet daily. CETIRIZINE HCL (ZYRTEC Take by mouth daily. PO) Cholecalciferol (Vitamin Take 1 Cap by mouth. D3) (VITAMIN D) 2,000 unit PO Cap citalopram (CELEXA) 10 mg Take 10 mg by mouth PO tablet daily. Fenofibrate Micronized Take 130 mg by mouth 130 mg cap daily. levothyroxine (SYNTHROID) Take 88 mcg by mouth 75 mcg PO tablet daily. MECOBALAMIN/L-MEFOLATE/B6 Take 1 Tab by mouth twice PHOS (METANX PO) daily. METOPROLOL TARTRATE PO Take by mouth at bedtime daily. [place]-3 Fatty Take 2 Caps by mouth Acids-Vitamin E (FISH daily. OIL) 1,000 mg PO Cap other medication 1 Dose. IBIG tx monthly PSEUDOEPHEDRINE HCL Take by mouth. Take this (SUDAFED 12 HOUR PO) in the AM as of this encounter Plan of Treatment Not on fileas of this encounter Results * URINALYSIS DIPSTICK (08/01/2017 11:02 AM) Component Value Ref Range Color,UA STRAW Turbidity,UA CLEAR CLEAR-CLEAR Specific Ce[place]-Urine 1.008 1.003 - 1.035 pH,UA 6.0 5.0 - 8.0 Protein,UA NEG NEG-NEG Glucose,UA NEG NEG-NEG Ketones,UA NEG NEG-NEG Bilirubin,UA NEG NEG-NEG Blood,UA NEG NEG-NEG Urobilinogen,UA NORMAL NORM-NORMAL Nitrite,UA NEG NEG-NEG Leukocytes,UA NEG NEG-NEG Urine Ascorbic Acid, UA NEG NEG-NEG Specimen Performing Laboratory Urine MAIN LAB [address] [place] [address] * RHEUMATOID FACTOR (RF) (08/01/2017 10:28 AM) Component Value Ref Range Rheum Factor Screen <20 <24 IU/mL Specimen Performing Laboratory Blood MAIN LAB [address] [place] [address] * ANTI-CYCLIC CITRULLINATED PEPT (08/01/2017 10:28 AM) Component Value Ref Range Anti-CCP IgG 1.3 <5.0 [IU]/mL Specimen Performing Laboratory Blood MAIN LAB [address] [place] [address] * C REACTIVE PROTEIN (CRP) (08/01/2017 10:28 AM) Component Value Ref Range C-Reactive Protein 0.23 <1.0 MG/DL Specimen Performing Laboratory Blood MAIN LAB [address] [place] [address] * 25-OH VITAMIN D (D2 + D3) (08/01/2017 10:28 AM) Component Value Ref Range Vitamin D(25-OH)Total 34.6 30 - 80 NG/ML Specimen Performing Laboratory Blood MAIN LAB [address] [place] [address] * CBC AND DIFF (08/01/2017 10:28 AM) Component Value Ref Range White Blood Cells 8.1 4.5 - 11.0 K/UL RBC 4.33 4.0 - 5.0 M/UL Hemoglobin 13.5 12.0 - 15.0 GM/DL Hematocrit 42.0 36 - 45 % MCV 96.9 80 - 100 FL MCH 31.2 26 - 34 PG MCHC 32.2 32.0 - 36.0 G/DL RDW 14.4 11 - 15 % Platelet Count 505 (H) 150 - 400 K/UL MPV 7.9 7 - 11 FL Neutrophils 59 41 - 77 % Lymphocytes 28 24 - 44 % Monocytes 9 4 - 12 % Eosinophils 3 0 - 5 % Basophils 1 0 - 2 % Absolute Neutrophil Count 4.80 1.8 - 7.0 K/UL Absolute Lymph Count 2.30 1.0 - 4.8 K/UL Absolute Monocyte Count 0.70 0 - 0.80 K/UL Absolute Eosinophil Count 0.30 0 - 0.45 K/UL Absolute Basophil Count 0.10 0 - 0.20 K/UL Specimen Performing Laboratory Blood MAIN LAB [address] [place] [address] in this encounter Visit Diagnoses Diagnosis Rheumatoid arthritis involving multiple sites, unspecified rheumatoid factor presence (HCC) Vitamin D deficiency Unspecified vitamin D deficiency Admitting Diagnoses Diagnosis Rheumatoid arthritis, unspecified (HCC) Rheumatoid arthritis, unspecified
--- OUTSIDE RECORDS SUMMARY | 2017-09-28 12:17 | XMS REPORT | Encounter Summary ---
Author Author [facility] Organization [facility] Address Unknown Phone Unavailable Care Team Providers Care [employer] Products Teacher Name Role Phone Ritika Hall MD Unavailable Zandra King APRN Unavailable Unavailable Syeda Cruz MD Unavailable Lucero Bueno MD Unavailable Dayron Joiner MD Unavailable Paige Carlson RN Unavailable Unavailable Kin Pierre MD Unavailable Oscar Hernandez RN Unavailable Unavailable Will Hatfield MD PCP Reason for Visit * Reason Comments Post Operative Visit 5 days Encounter Details Date Type Department Care Team Description 08/22/2017 Office Visit [facility] Kin Pierre MD Nasal defect (Primary Dx) Physicians - ENT Facial [address] [place] [place] [address] [place] [address] [place] [address] Social History Tobacco Use Types Packs/Day Years Used Date Former Smoker Cigarettes 0.5 9 Quit: 05/29/1976 Smokeless Tobacco: Never Used Alcohol Use Drinks/Week oz/Week Comments Yes 1-2 Standard 0.6 - 1.2 occasional drinks or equivalent Sex Assigned at Date Recorded Not on file as of this encounter Last Filed Vital Signs Vital Sign Reading Time Taken Blood Pressure 131/81 08/22/2017 8:32 AM CDT Pulse 80 08/22/2017 8:32 AM CDT Temperature - - Respiratory Rate - - Oxygen Saturation - - Inhaled Oxygen - - Concentration Weight 59.9 kg (132 lb) 08/22/2017 8:32 AM CDT Height 162.6 cm (5' 4") 08/22/2017 8:32 AM CDT Body Mass Index 22.66 08/22/2017 8:32 AM CDT in this encounter Functional Status Functional Status Response [...] impairment: No 01/22/2015 as of this encounter Progress Notes * Kin Pierre MD - 08/22/2017 8:30 AM CDT Formatting of this note may be different from the original. Date of Service: 08/22/2017 Subjective: Jana Costa is a 67 y.o. female. History of Present Illness Historhy of PMFF with nasal fracture after in April 2017 now s/p revision and debulking of flap as well as excision of shifted cartilage and graft to columella. Doing well no issues postop Review of Systems All other systems reviewed and are negative. Objective: aspirin EC 81 mg tablet Take 81 mg by mouth daily. atorvastatin (LIPITOR) 80 mg tablet Take 80 mg by mouth daily. CETIRIZINE HCL (ZYRTEC PO) Take by mouth daily. Cholecalciferol (Vitamin D3) (VITAMIN D) 2,000 unit PO Cap Take 1 Cap by mouth. citalopram (CELEXA) 10 mg PO tablet Take 10 mg by mouth daily. Fenofibrate Micronized 130 mg cap Take 130 mg by mouth daily. levothyroxine (SYNTHROID) 75 mcg PO tablet Take 88 mcg by mouth daily. MECOBALAMIN/L-MEFOLATE/B6 PHOS (METANX PO) Take 1 Tab by mouth twice daily. METOPROLOL TARTRATE PO Take by mouth at bedtime daily. [place]-3 Fatty Acids-Vitamin E (FISH OIL) 1,000 mg PO Cap Take 2 Caps by mouth daily. other medication 1 Dose. IBIG tx monthly PSEUDOEPHEDRINE HCL (SUDAFED 12 HOUR PO) Take by mouth. Take this in the AM Vitals: 08/22/17 0832 BP: 131/81 Pulse: 80 Weight: 59.9 kg (132 lb) Height: 162.6 cm (64") Body mass index is 22.66 kg/m. Physical Exam NAD Prolenes removed. Flap viable with minimal edema. Removed dorsal dressing with dorsum smooth and healing well. NOSE Instrument 1. Nasal congestion / stuffiness 0 2. Poor sense of smell 0 3. Snoring 0 4. Nasal blockage / obstruction 0 5. Trouble breathing through my nose 0 6. Trouble sleeping 0 7. Having to breath through my mouth 0 8. Unable to get enough air during exercise / exertion 0 9. Feeling panic that I cant get enough air through nose 0 10. Embarrassment around friends / coworkers because of trouble breathing through nose 0 11. In general, my health is x Assessment and Plan: S/p revision of PMFF doing well happy with result. No issues breathing f/u in 2- 3 months. Staff-The patient was interviewed and examined and I agree with Dr. Holm's assessment and plan. in this encounter Plan of Treatment Not on fileas of this encounter Visit Diagnoses Diagnosis Nasal defect - Primary Acquired deformity of nose
--- OUTSIDE RECORDS SUMMARY | 2017-09-28 12:17 | XMS REPORT | Encounter Summary ---
Author Author [facility] Organization [facility] Address Unknown Phone Unavailable Care Team Providers Care Printed Circuit Board Preassembler Name Role Phone Ritika Hall MD Unavailable Zandra King APRN Unavailable Unavailable Syeda Cruz MD Unavailable Lucero Bueno MD Unavailable Dayron Joiner MD Unavailable Paige Carlson RN Unavailable Unavailable Kin Pierre MD Unavailable Oscar Hernandez RN Unavailable Unavailable Will Hatfield MD PCP Reason for Referral * Consult, Test & Treat Status Reason Specialty Diagnoses / Referred By Referred To Procedures Contact Contact No Auth Needed Specialty Orthopedic Surgery Diagnoses Theresa Brumfield Bryan G, MD Services Rheumatoid Danielito Stephens MD [address] Required arthritis [address] [place] [address] [place], [place] multiple sites, [place] [address] unspecified [place], [place] Phone: rheumatoid [phone] factor presence Phone: ([facility]) [phone] Reason for Visit * Reason Comments Rheumatoid Arthritis Encounter Details Date Type Department Care Team Description 08/01/2017 Office Visit [facility] Danielito Brumfield MD Rheumatoid arthritis Physicians - Internal [address] [facility] involving multiple sites, Medicine [place] [address] unspecified rheumatoid [address] [place] [address] factor presence (HCC) [address] [facility] MED [phone] (Primary Dx); OFFICE BLDG Vitamin D deficiency; [place], [place] Need for influenza [id number] vaccination; [phone] Encounter for long-term (current) use of high-risk medication Social History Tobacco Use Types Packs/Day Years Used Date Former Smoker Cigarettes 0.5 9 Quit: 05/29/1976 Smokeless Tobacco: Never Used Alcohol Use Drinks/Week oz/Week Comments Yes 1-2 Standard 0.6 - 1.2 occasional drinks or equivalent Sex Assigned at Date Recorded Not on file as of this encounter Last Filed Vital Signs Vital Sign Reading Time Taken Blood Pressure 124/81 08/01/2017 8:44 AM PSYCHOLOGY INSTRUCTOR Pulse 88 08/01/2017 8:44 AM PSYCHOLOGY INSTRUCTOR Temperature 36.4 C (97.6 F) 08/01/2017 8:44 AM PSYCHOLOGY INSTRUCTOR Respiratory Rate 19 08/01/2017 8:44 AM PSYCHOLOGY INSTRUCTOR Oxygen Saturation - - Inhaled Oxygen - - Concentration Weight 60.6 kg (133 lb 9.6 oz) 08/01/2017 8:44 AM PSYCHOLOGY INSTRUCTOR Height 162.6 cm (5' 4") 08/01/2017 8:44 AM PSYCHOLOGY INSTRUCTOR Body Mass Index 22.93 08/01/2017 8:44 AM PSYCHOLOGY INSTRUCTOR in this encounter Functional Status Functional Status [...] impairment: No 01/22/2015 as of this encounter Instructions * Patient Instructions - Danielito Brumfield MD - 08/01/2017 8:30 AM PSYCHOLOGY INSTRUCTOR Plan: 1. Changes in medication:No 2. Referrals: Orthopedics. Dr Grant Green 3.Non-monitoring laboratory tests ordered: CBC, RF, Anti-CCP Ab, CRP, ESR 4. Monitoring laboratory tests: . A. Safety: CBC, ALT, Creat q 0 weeks. B. Disease activity: ESR, CRP q 0 weeks. 5. X-rays ordered: Joint survey 6. Patient education materials provided: None. 7. Exercise Program: Exercise as tolerated. 8. Vaccinations: There is no immunization history on file for this patient. 9. Other items/Special Instructions: Flu HP, Prevnaar 13 10. Return visit: 0 Months Transfer of care to Waiting list. Consider Dr Schofield or Dr Joy. Request Ret60 in 6 months. 11. If any problems please call nurse Tennille Munoz at [phone]. in this encounter Progress Notes * Danielito Brumfield MD - 08/01/2017 8:30 AM PSYCHOLOGY INSTRUCTOR Formatting of this note may be different from the original. Date of Service: 08/01/2017 Date of last contact with Rheumatology: 06/26/2017 Date of last office visit encounter with Dr Brumfield: Visit date not found Subjective: Jana Costa is a 67 y.o. female. 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 Accompanying Person: None. Time started:0900 ClinHAQ II Questionnaire: 10 cm VAS (0=very well; 10.0=very poorly): Pt global: 1.0 Joint pain: 0.5 Fatigue: 0.0. Disability Index (Best=0.0; Worse=3.0): 0.0 Pt satisfaction (0-4; 0=very satisfied; 4=very dissatisfied): 1 Painful/swollen Joints: Feet. Rt foot surgery ~ 1996. "Corns hurt, both feet." Always with ambulation.No worse with stair climbing. Not doing her traditional exercise program past 18 years.. Painful Muscles: None. AM stiffness: < 5 min joint stiffness.. ADLs affected: No limitations. Abdom pain: None. Other Problems: Heart attack 2014. Triple bypass without stents. Current rheumatic drugs: None. . Taking antirheumatic meds as prescribed: Receives retuximab for joint Sx; last Tx 2015. Review of Systems Constitutional: Negative for fever. Musculoskeletal: Positive for arthralgias. Objective: aspirin EC 81 mg tablet Take [...] PO Take by mouth at bedtime daily. [place]-3 Fatty Acids-Vitamin E (FISH OIL) 1,000 mg PO Cap Take 2 Caps by mouth daily. other medication 1 Dose. IBIG tx monthly PSEUDOEPHEDRINE HCL (SUDAFED 12 HOUR PO) Take by mouth. Take this in the AM Vitals: 08/01/17 0844 BP: 124/81 Pulse: 88 Resp: 19 Temp: 36.4 C (97.6 F) TempSrc: Oral Weight: 60.6 kg (133 lb 9.6 oz) Height: 162.6 cm (64") Body mass index is 22.93 kg/m., Discussed patient's BMI with her. The body mass index is 22.93 kg/m. and falls within the category of Acceptable (19 to < 25); no follow up action or recommendations are necessary at this time. Wt Readings from Last 3 Encounters: 08/01/17 60.6 kg (133 lb 9.6 oz) 05/02/17 60.4 kg (133 lb 3.2 oz) 04/25/17 60.7 kg (133 lb 12.8 oz) Physical Exam Constitutional: She appears well-developed and well-nourished. Neurological: She is alert and oriented to person, place, and time. Psychiatric: She has a normal mood and affect. Her behavior is normal. Judgment and thought content normal. Homunculus: .i ma. Clinical Disease Activity Index Tender Jt Ct (TJC): [address] (SJC): 6 Visual Analogue Scale - Pt Global Assessment: 1 Visual Analogue Scale - Steam Engineer Global Assessment: 2 CDAI TOTAL SCORE: 9 CDAI Interpretation: 2.8--10 Low Dis Activity CDAI 03/07/2014 09/26/2015 08/19/[address] (TJC) 0 [address] (SJC) 5 9 6 Visual Analogue Scale - Pt Global Assessment 0.5 2 1 Visual Analogue Scale - Steam Engineer Global Assessment 3 4 2 CDAI TOTAL SCORE 8.5 15 9 CDAI Interpretation 2.8--10 Low Dis Activity >10.0-22 Mod Dis Activity 2.8-- 10 Low Dis Activity White Blood Cells Date Value Ref Range Status 08/01/2017 8.1 4.5 - 11.0 K/UL Final Hemoglobin Date Value Ref Range Status 08/01/2017 13.5 12.0 - 15.0 GM/DL Final ALT (SGPT) Date Value Ref Range Status 08/01/2008 17 7 - 56 U/L Final Creatinine Date Value Ref Range Status 08/01/2008 1.08 (H) 0.4 - 1.00 MG/DL Final Protein,UA Date Value Ref Range Status 08/01/2017 NEG NEG-NEG Final C-Reactive Protein Date Value Ref Range Status 08/01/2017 0.23 <1.0 MG/DL Final Vitamin D(25-OH)Total Date Value Ref Range Status 08/01/2017 34.6 30 - 80 NG/ML Final Anit-CCP IgG Date Value Ref Range Status 08/01/2017 1.3 <5.0 [IU]/mL Final OTHER LAB (X-RAYS): Results for orders placed during the hospital encounter of 03/07/14 JOINT SRVY 1 VW, 2+ JOINTS Narrative EXAM: JOINT SURVEY Clinical Data: Joint pain, long-standing RA and OA. Comparison: 06/13/2008. Lateral cervical spine: The predental space is not widened. The odontoid process appears well formed. Anterolisthesis of C3 relative to C4 and C4 relative to C5 is noted. Disc space narrowing and large osteophytes are present at the C5-C6 and C6-C7 levels. The prevertebral soft tissues appear unremarkable. Bilateral standing knees: Since the prior study the patient had bilateral total knee arthroplasties. Alignment appears satisfactory. There is no evidence of abnormal lucency associated orthopedic hardware on the single PA projection. Generalized bony demineralization is present. Right hand: Marked radiocarpal joint space narrowing is present. 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 Volume loss of the lunate is noted. Marked joint space narrowing is present on the first MCP with unchanged chronic erosive findings involving the distal second metatarsal head. Degenerative changes are present involving the interphalangeal joint which appears similar. Left hand: Erosive changes involving the wrist have progressed slightly since the prior study. Marked erosive changes involving the metacarpal phalangeal joints are again noted and appear similar. These are most marked at the second and third MCP joints. Joint space narrowing involving the carpal joints are noted. 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 This finding has developed since the prior study. Erosive changes involving the second and fourth PIP joints appears unchanged. Pelvis: The SI joints appear unremarkable. The hip joints demonstrate no significant abnormality. Dystrophic calcifications adjacent to the lesser trochanter of the proximal left femur are unchanged. Left foot: Advanced erosive changes with subluxation of the MTP joints are similar to the prior study. The erosive change appears similar to the prior study. An old healed fracture deformity of the diaphysis of the second metatarsal is noted. Right foot: Advanced erosive changes involving MTP joints with subluxations are again noted which appear similar to the prior study. An old healed fracture deformity of the third metatarsal is noted. Impression JOINT SRVY 1 VW 2+ JOINTS IMPRESSION: 1. ADVANCED EROSIVE CHANGES INVOLVING THE LEFT HAND AND BILATERAL FEET APPEAR SIMILAR TO THE PRIOR STUDY. 2. UNCHANGED EROSIVE FINDINGS INVOLVING MCP AND PIP JOINTS COMPARED TO THE PRIOR STUDY. EROSIVE CHANGES INVOLVING THE WRISTS HAVE PROGRESSED SINCE THE PRIOR STUDY. FINDINGS OF BILATERAL SLAC WRISTS ARE NOTED. THIS HAS DEVELOPED ON THE LEFT SINCE THE PRIOR STUDY. 3. ADVANCED MULTILEVEL DEGENERATIVE CHANGES INVOLVING THE CERVICAL SPINE APPEAR SIMILAR TO THE PRIOR STUDY. UNCHANGED ANTEROLISTHESIS AT THE C3-C4 AND C4-C5 LEVELS ARE PRESENT. 4. BILATERAL KNEE ARTHROPLASTIES HAVE BEEN PLACED SINCE THE PRIOR STUDY. Electronically signed on: Mar 12 2014 11:52AM by DANN HOWE for ROMEL HONG Assessment: 1. Rheumatoid arthritis involving multiple sites, unspecified rheumatoid factor presence (HCC) CBC AND DIFF URINALYSIS DIPSTICK C REACTIVE PROTEIN (CRP) ANTI-CYCLIC CITRULLINATED PEPT RHEUMATOID FACTOR (RF) JOINT SRVY 1 VW 2+ JOINTS 2. Vitamin D deficiency 25-OH VITAMIN D (D2 + D3) 3. Need for influenza vaccination PNEUMOCOCCAL CONJ VACCINE 13-AYDE FLU VACCINE=>63 YO HIGH DOSE PF Rheumatoid arthritis. By CDAI low disease activity. Discussed Treat to Target for her rheumatoid arthritis. She previously agreed that CDAI was a reasonable measure of disease activity and that low disease activity was a suitable target for her. Today she is at her target. Although her overall disease activity is well controlled presently, with periodic rituximab IV therapy, she has developed structural abnormalities in both forefeet and most likely needs metatarsal head resection to relieve her pain with ambulation. Plan: 1. Changes in medication:No 2. Referrals: Orthopedics. Dr Grant Green 3.Non-monitoring laboratory tests ordered: CBC, RF, Anti-CCP Ab, CRP, ESR 4. Monitoring laboratory tests: . A. Safety: CBC, ALT, Creat q 0 weeks. B. Disease activity: ESR, CRP q 0 weeks. 5. X-rays ordered: Joint survey 6. Patient education materials provided: None. 7. Exercise Program: Exercise as tolerated. 8. Vaccinations: Immunization History Administered Date(s) Administered Flu Vaccine=>63 YO High-Dose (PF) 08/01/2017 Pneumococcal Vaccine(13-Ayde Peds/immunocompromised adult) 08/01/2017 9. Other items/Special Instructions: Flu HP, Prevnaar 13 10. Return visit: 0 Months Transfer of care to Waiting list. Consider Dr Schofield or Dr oJy. Request Ret60 in 6 months. 11. If any problems please call nurse Tennille Munoz at [phone]. Next appointment on Future Appointments Date Time Provider Department Center 08/22/2017 8:30 AM Kin Pierre MD [id number] ENT Time started: 0900. Time finished: 0945. Total visit 45 minutes. Over 50% of time spent counseling. Patient last seen by me over 2 years ago. Orders Placed This Encounter JOINT SRVY 1 VW 2+ JOINTS PNEUMOCOCCAL CONJ VACCINE 13-AYDE influenza (=>63 YO) TRIvalent HIGH DOSE (FLUZONE) vaccine PF CBC AND DIFF today 25-OH VITAMIN D (D2 + D3) today URINALYSIS DIPSTICK today C REACTIVE PROTEIN (CRP) today ANTI-CYCLIC(anti-CCP),today RHEUMATOID FACTOR (RF) today Danielito Brumfield MD in this encounter Plan of Treatment Name Priority Associated Diagnoses Order Schedule JOINT SRVY 1 VW 2+ JOINTS Routine Rheumatoid arthritis Ordered: 2017 involving multiple sites, unspecified rheumatoid factor presence (HCC) Name Priority Associated Diagnoses Order Schedule AMB REFERRAL TO ORTHOPEDICS Routine Rheumatoid arthritis Ordered: 2017 involving multiple sites, unspecified rheumatoid factor presence (HCC) as of this encounter Results * URINALYSIS DIPSTICK (08/01/2017 11:02 AM) Component Value Ref Range Color,UA STRAW Turbidity,UA CLEAR CLEAR-CLEAR Specific [place]-Urine 1.008 1.003 - 1.035 pH,UA 6.0 5.0 - 8.0 Protein,UA NEG NEG-NEG Glucose,UA NEG NEG-NEG Ketones,UA NEG NEG-NEG Bilirubin,UA NEG NEG-NEG Blood,UA NEG NEG-NEG Urobilinogen,UA NORMAL NORM-NORMAL Nitrite,UA NEG NEG-NEG Leukocytes,UA NEG NEG-NEG Urine Ascorbic Acid, UA NEG NEG-NEG Specimen Performing Laboratory Urine MAIN LAB [address] [place] [address] * RHEUMATOID FACTOR (RF) (08/01/2017 10:28 AM) Component Value Ref Range Rheum Factor Screen <20 <24 IU/mL Specimen Performing Laboratory Blood MAIN LAB [address] [place] [address] * ANTI-CYCLIC CITRULLINATED PEPT (08/01/2017 10:28 AM) Component Value Ref Range Anti-CCP IgG 1.3 <5.0 [IU]/mL Specimen Performing Laboratory Blood MAIN LAB [address] [place] [address] * C REACTIVE PROTEIN (CRP) (08/01/2017 10:28 AM) Component Value Ref Range C-Reactive Protein 0.23 <1.0 MG/DL Specimen Performing Laboratory Blood MAIN LAB [address] [place], [place] [id number] * 25-OH VITAMIN D (D2 + D3) (08/01/2017 10:28 AM) Component Value Ref Range Vitamin D(25-OH)Total 34.6 30 - 80 NG/ML Specimen Performing Laboratory Blood MAIN LAB [address] [place], [place] [id number] * CBC AND DIFF (08/01/2017 10:28 AM) [...] - 0.20 K/UL Specimen Performing Laboratory Blood [facility] MAIN LAB [address] [place] [address] in this encounter Visit Diagnoses Diagnosis Rheumatoid arthritis involving multiple sites, unspecified rheumatoid factor presence (HCC) - Primary Vitamin D deficiency Unspecified vitamin D deficiency Need for influenza vaccination Need for prophylactic vaccination and inoculation against influenza Encounter for long-term (current) use of high-risk medication Encounter for long-term (current) use of other medications
--- OUTSIDE RECORDS SUMMARY | 2017-09-28 12:17 | XMS REPORT | Clinical Summary ---
Author Author [facility] Organization [facility] Address Unknown Phone Unavailable Care Team Providers Care Crew Director Name Role Phone Ritika Hall MD Unavailable Zandra King APRN Unavailable Unavailable Syeda Cruz MD Unavailable Lucero Bueno MD Unavailable Dayron Joiner MD Unavailable Paige Carlson RN Unavailable Unavailable Kin Pierre MD Unavailable Oscar Hernandez RN Unavailable Unavailable Will Hatfield MD PCP Source Comments Some departments are not documenting in the electronic medical record. If you do not see the information that you expected, contact Release of Information in the Health Information Management department at [phone] for further assistance in locating additional records.[facility] Allergies Active Allergy Reactions Severity Noted Date Comments Ciprofloxacin 07/18/2008 Guaifenesin 07/18/2008 Nitrofurantoin UNKNOWN 07/18/2008 Macrocrystalline Hydroxychloroquine 07/18/2008 Lansoprazole 07/18/2008 Quinolones 07/18/2008 Sulfa (Sulfonamide 07/18/2008 Antibiotics) [...] D3) (VITAMIN D) 2,000 unit PO Cap [place]-3 Fatty Take 2 Caps by mouth Active Acids-Vitamin E (FISH daily. OIL) 1,000 mg PO Cap Fenofibrate Micronized Take 130 mg by mouth Active 130 mg cap daily. atorvastatin (LIPITOR) 80 Take 80 mg by mouth Active mg tablet daily. aspirin EC 81 mg tablet Take 81 mg by mouth Active daily. PSEUDOEPHEDRINE HCL Take by mouth. Take this Active (SUDAFED 12 HOUR PO) in the AM METOPROLOL TARTRATE PO Take by mouth at bedtime Active daily. other medication 1 Dose. IBIG tx monthly Active MECOBALAMIN/L-MEFOLATE/B6 Take 1 Tab by mouth twice Active PHOS (METANX PO) daily. Active Problems Problem Noted Date Closed fracture of nasal bone with routine healing 05/02/2017 Facial aging 06/27/2016 Nasal obstruction 06/02/2015 Nasal defect 01/21/2015 Basal cell carcinoma of nose 01/20/2015 Renal insufficiency 03/07/2014 Vitamin D deficiency 06/07/2013 Encounter for long-term (current) use of NSAIDs 07/12/2011 Joint pain 01/18/2011 Rheumatoid arthritis(714.0) 01/18/2011 Generalized osteoarthritis 01/18/2011 Encounter for long-term (current) use of high-risk medication 01/18/2011 Lymphoma (HCC) 01/18/2011 RA (rheumatoid arthritis) (HCC) Non Hodgkin's lymphoma (HCC) Encounters Date Type Specialty Care Team Description 08/22/2017 Office Visit Otolaryngology Kin Pierre MD Nasal defect (Primary Dx) 08/01/2017 Hospital Lab Danielito Brumfield MD Rheumatoid arthritis, Encounter unspecified (HCC) 08/01/2017 Office Visit Allergy,Immunology and Danielito Brumfield MD Rheumatoid arthritis Rheumatology involving multiple sites, unspecified rheumatoid factor presence (HCC) (Primary Dx); Vitamin D deficiency; Need for influenza vaccination; Encounter for long-term (current) use of high-risk medication from Last 3 Months Immunizations Name Dates Previously Given Next Due Flu Vaccine=>63 YO 08/01/2017 High-Dose (PF) Pneumococcal 08/01/2017 Vaccine(13-Ayde Peds/immunocompromised adult) Family History Medical History Relation Name Comments Hearing Loss Mother Thyroid Disease Mother Relation Name Status Comments Brother Alive Brother Alive Father Mother Alive Social History Tobacco Use Types Packs/Day Years Used Date Former Smoker Cigarettes 0.5 9 Quit: 05/29/1976 Smokeless Tobacco: Never Used Tobacco Cessation: Counseling Given: No Alcohol Use Drinks/Week oz/Week Comments Yes 1-2 Standard 0.6 - 1.2 occasional drinks or equivalent Sex Assigned at Date Recorded Not on file Last Filed Vital Signs Vital Sign Reading Time Taken Blood Pressure 131/81 08/22/2017 8:32 AM CDT Pulse 80 08/22/2017 8:32 AM CDT Temperature 36.4 C (97.6 F) 08/01/2017 8:44 AM RN CRITICAL CARE Respiratory Rate 19 08/01/2017 8:44 AM RN CRITICAL CARE Oxygen Saturation 98% 01/22/2015 6:09 AM CDT Inhaled Oxygen - - Concentration Weight 59.9 kg (132 lb) 08/22/2017 8:32 AM CDT Height 162.6 cm (5' 4") 08/22/2017 8:32 AM CDT Body Mass Index 22.66 08/22/2017 8:32 AM CDT Plan of Treatment Health Maintenance Due Date Last Done Comments HEPATITIS C SCREENING 1948 PHYSICAL (COMPREHENSIVE) 1955 EXAM PERTUSSIS VACCINE 1959 TETANUS VACCINE 1965 SHINGLES VACCINE 2008 BREAST CANCER SCREENING 07/21/2010 07/21/2009 OSTEOPOROSIS SCREENING 2013 INFLUENZA VACCINE 02/26/2018 08/01/2017 PREVNAR/PNEUMOVAX (#2) 08/01/2018 08/01/2017 COLORECTAL CANCER 07/21/2019 07/21/2009 SCREENING Results * URINALYSIS DIPSTICK (08/01/2017 11:02 AM) Component Value Ref Range Color,UA STRAW Turbidity,UA CLEAR CLEAR-CLEAR Specific [place]-Urine 1.008 1.003 - 1.035 pH,UA 6.0 5.0 - 8.0 Protein,UA NEG NEG-NEG Glucose,UA NEG NEG-NEG Ketones,UA NEG NEG-NEG Bilirubin,UA NEG NEG-NEG Blood,UA NEG NEG-NEG Urobilinogen,UA NORMAL NORM-NORMAL Nitrite,UA NEG NEG-NEG Leukocytes,UA NEG NEG-NEG Urine Ascorbic Acid, UA NEG NEG-NEG Specimen Performing Laboratory Urine MAIN LAB [address] [place] [id number] * RHEUMATOID FACTOR (RF) (08/01/2017 10:28 AM) Component Value Ref Range Rheum Factor Screen <20 <24 IU/mL Specimen Performing Laboratory Blood MAIN LAB [address] [place] [id number] * ANTI-CYCLIC CITRULLINATED PEPT (08/01/2017 10:28 AM) Component Value Ref Range Anti-CCP IgG 1.3 <5.0 [IU]/mL Specimen Performing Laboratory Blood MAIN LAB [address] [place] [phone] * 25-OH VITAMIN D (D2 + D3) (08/01/2017 10:28 AM) Component Value Ref Range Vitamin D(25-OH)Total 34.6 30 - 80 NG/ML Specimen Performing Laboratory Blood MAIN LAB [address] [place] [id number] * CBC AND DIFF (08/01/2017 10:28 AM) [...] K/UL Specimen Performing Laboratory Blood MAIN LAB [address] [place] [id number] * C REACTIVE PROTEIN (CRP) (08/01/2017 10:28 AM) Component Value Ref Range C-Reactive Protein 0.23 <1.0 MG/DL Specimen Performing Laboratory Blood [facility] MAIN [facility] [address] [place] [address] from Last 3 Months
--- NOTE | 2017-09-28 12:19 | Cardiac Procedure Note-CS/ASA ---
Pre-Procedure Note Pre-Op Procedure Note H&P Reviewed The H&P was reviewed, patient examined and no changes noted. Date H&P Reviewed: September 28, 2017 Time H&P Reviewed: 12:19 Conscious Sedation Pre-Proced Time Reviewed: 12:19 ASA Class: 3 Airway Mallampati Classification: (gambell appropriate class) I. II. III, IV Lungs Heart ASA score ASA 1: a normal healthy patient ASA 2: a patient with a mild systemic disease (mid diabetes, controlled hypertension, obesity x ASA 3: a patient with a severe systemic disease that limits activity (angina , COPD, prior Myocardial infarction) ASA 4: a patient with an incapacitating disease that is a constant threat to life (CHF, renal failure) ASA 5: a moribund patient not expected to survive 24 hrs. (ruptured aneurysm) ASA 6: a declared brain patient whose organs are being harvested. For emergent operations, add the letter E after the classification Grade 3 Sedation Plan: Analgesia, Amnesia, Plan communicated to team members, Discussed options with patient/fam, Discussed risks with patient/fam Note The patient is an appropriate candidate to undergo the planned procedure, sedation, and anesthesia. The patient immediately re-assessed prior to indication. ZIA HENDERSON MD September 28, 2017 12:19
--- OUTSIDE RECORDS SUMMARY | 2017-09-28 12:21 | XMS REPORT | Continuity of Care Document ---
Author Author [facility] Organization [facility] Address Unknown Phone Unavailable Allergies Active Description Code Type Severity Reaction Onset Reported/Identified Relationship to Patient Clinical Status Yes ciprofloxacin [id number] Drug Allergy Unknown N/A 10/21/2008 Yes guaifenesin [id number] Drug Allergy Unknown N/A 10/21/2008 Yes hydroxychloroquine [id number] Drug Allergy Unknown N/A 10/21/2008 Yes iopamidol [id number] Drug Allergy Unknown N/A 10/21/2008 Yes nitrofurantoin [id number] Drug Allergy Unknown N/A 10/21/2008 Yes Sulfa (Sulfonamide Antibiotics) [id number] Drug Allergy Unknown N/A 2008 Yes Iodinated Contrast Media - IV Dye [id number] Drug Allergy Moderate hives Yes Iodinated Contrast Media - Oral and [id number] Drug Allergy Moderate hives 11/04/2013 Yes Iodinated Contrast- Oral and IV Dye [id number] Drug Allergy Moderate hives 11/04/2013 Medications There is no data. 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 GARMENT LINER (CURRENT) DRUG THERAPY 03/14/2010 Ot 279.00 06/17/2010 Ot 202.80 06/17/2010 Ot 279.00 06/17/2010 Ot 714.0 06/17/2010 Ot V58.69 06/17/2010 Ot V87.41 10/02/2010 Ot 244.9 10/02/2010 Ot 714.0 10/12/2010 Ot 202.80 OTH LYMPHOMAS EXTRANODAL SOLID ORGAN U 10/12/2010 Ot 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 10/12/2010 Ot 714.0 RHEUMATOID ARTHRITIS 10/12/2010 Ot V03.82 PROPHYLACTIC VACC AGAINST STREPTOCOCCUS 10/12/2010 Ot V58.69 OTH MED,LT, CURRENT USE 10/12/2010 Ot V87.41 PERSONAL HISTORY OF ANTINEOPLASTIC CHEMO 01/20/2011 Ot 202.80 OTH LYMPHOMAS EXTRANODAL SOLID ORGAN U 01/20/2011 Ot 238.71 ESSENTIAL THROMBOCYTHEMIA 01/20/2011 Ot 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 01/20/2011 Ot 585.3 CHRONIC KIDNEY DISEASE, STAGE III (MODER 01/20/2011 Ot 714.0 RHEUMATOID ARTHRITIS 01/20/2011 Ot V58.69 OTH MED,LT, CURRENT USE 01/20/2011 Ot V87.41 PERSONAL HISTORY OF ANTINEOPLASTIC CHEMO 06/02/2011 Ot 202.80 OTH LYMPHOMAS EXTRANODAL SOLID ORGAN U 06/02/2011 Ot 238.71 ESSENTIAL THROMBOCYTHEMIA 06/02/2011 Ot 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 06/02/2011 Ot 585.3 CHRONIC KIDNEY DISEASE, STAGE III (MODER 06/02/2011 Ot 714.0 RHEUMATOID ARTHRITIS 06/02/2011 Ot V58.69 OTH MED,LT, CURRENT USE 06/02/2011 Ot V87.41 PERSONAL HISTORY OF ANTINEOPLASTIC CHEMO 09/01/2011 Ot 202.80 OTH LYMPHOMAS EXTRANODAL SOLID ORGAN U 09/01/2011 Ot 238.71 ESSENTIAL THROMBOCYTHEMIA 09/01/2011 Ot 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 09/01/2011 Ot 585.3 CHRONIC KIDNEY DISEASE, STAGE III (MODER 09/01/2011 Ot 714.0 RHEUMATOID ARTHRITIS 09/01/2011 Ot V58.11 ENCOUNTER FOR ANTINEOPLASTIC CHEMOTHERAP 09/01/2011 Ot V58.69 OTH MED,LT, CURRENT USE 01/17/2012 Ot 202.80 OTH LYMPHOMAS EXTRANODAL SOLID ORGAN U 01/17/2012 Ot 238.71 ESSENTIAL THROMBOCYTHEMIA 01/17/2012 Ot 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 01/17/2012 Ot 585.3 CHRONIC KIDNEY DISEASE, STAGE III (MODER 01/17/2012 Ot 714.0 RHEUMATOID ARTHRITIS 01/17/2012 Ot V58.69 OTH MED,LT, CURRENT USE 07/05/2012 Ot 202.80 OTH LYMPHOMAS EXTRANODAL SOLID ORGAN U 07/05/2012 Ot 238.71 ESSENTIAL THROMBOCYTHEMIA 07/05/2012 Ot 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 07/05/2012 Ot 585.3 CHRONIC KIDNEY DISEASE, STAGE III (MODER 07/05/2012 Ot 714.0 RHEUMATOID ARTHRITIS 07/05/2012 Ot V58.69 OTH MED,LT, CURRENT USE 08/10/2012 Ot 244.9 HYPOTHYROIDISM NOS 08/10/2012 Ot 401.9 HYPERTENSION NOS 08/10/2012 Ot 714.0 RHEUMATOID ARTHRITIS 08/10/2012 Ot 715.36 LOC OSTEOARTH NOS-L/LEG 10/25/2012 Ot 202.80 OTH LYMPHOMAS EXTRANODAL SOLID ORGAN U 10/25/2012 Ot 238.71 ESSENTIAL THROMBOCYTHEMIA 10/25/2012 Ot 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 10/25/2012 Ot 585.3 CHRONIC KIDNEY DISEASE, STAGE III (MODER 10/25/2012 Ot 714.0 RHEUMATOID ARTHRITIS 10/25/2012 Ot V58.69 OTH MED,LT, CURRENT USE 03/07/2013 SEBAS KENNEDY Ot 202.80 OTH LYMPHOMAS EXTRANODAL SOLID ORGAN U 03/07/2013 SEBAS KENNEDY Ot 238.71 ESSENTIAL THROMBOCYTHEMIA 03/07/2013 SEBAS KENNEDY Ot 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 03/07/2013 SEBAS KENNEDY Ot 585.3 CHRONIC KIDNEY DISEASE, STAGE III (MODER 03/07/2013 SEBAS KENNEDY Ot 714.0 RHEUMATOID ARTHRITIS 03/07/2013 SEBAS KENNEDY Ot V58.11 ENCOUNTER FOR ANTINEOPLASTIC CHEMOTHERAP 03/07/2013 SEBAS KENNEDY Ot V58.69 OTH MED,LT,CURRENT USE 07/11/2013 SEBAS KENNEDY Ot 202.80 OTH LYMPHOMAS EXTRANODAL SOLID ORGAN U 07/11/2013 SEBAS KENNEDY Ot 238.71 ESSENTIAL THROMBOCYTHEMIA 07/11/2013 SEBAS KENNEDY Ot 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 07/11/2013 SEBAS KENNEDY Ot 585.3 CHRONIC KIDNEY DISEASE, STAGE III (MODER 07/11/2013 SEBAS KENNEDY Jonathan Ot 714.0 RHEUMATOID ARTHRITIS 07/11/2013 SEBAS KENNEDY Jonathan Ot V58.0 ENCOUNTER FOR RADIOTHERAPY 07/11/2013 SEBAS KENNEDY Jonathan Ot V58.69 OTH MED,LT,CURRENT USE 10/10/2013 MARCIA SEBAS Castillo Ot 202.80 OTH LYMPHOMAS EXTRANODAL SOLID ORGAN U 10/10/2013 MARCIA SEBAS Castillo Ot 238.71 ESSENTIAL THROMBOCYTHEMIA 10/10/2013 MARCIA SEBAS Castillo Ot 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 10/10/2013 SEBAS KENNEDY Jonathan Ot 585.3 CHRONIC KIDNEY DISEASE, STAGE III (MODER 10/10/2013 MARCIA SEBAS Castillo Ot 714.0 RHEUMATOID ARTHRITIS 10/10/2013 MARCIA SEBAS Castillo Ot V58.0 ENCOUNTER FOR RADIOTHERAPY 10/10/2013 MARCIA SEBAS Castillo Ot V58.69 OTH MED,LT,CURRENT USE 12/06/2013 ZIA HENDERSON MD Ot 202.80 OTH LYMPHOMAS EXTRANODAL SOLID ORGAN U 12/06/2013 ZIA HENDERSON MD Ot 244.9 HYPOTHYROIDISM NOS 12/06/2013 ZIA HENDERSON MD Ot 272.4 HYPERLIPIDEMIA NEC/NOS 12/06/2013 ZIA HENDERSON MD Ot 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 12/06/2013 ZIA HENDERSON MD Ot 285.9 ANEMIA NOS 12/06/2013 ZIA HENDERSON MD Ot 403.90 HYPTNSV CHR KID DIS, UNSPEC, W CHR KD ST 12/06/2013 ZIA HENDERSON MD Ot 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,OTH INFERIOR WALL,INI 12/06/2013 ZIA HENDERSON MD Ot 414.01 CORONARY ATHEROSCLEROSIS OF [place] CORON 12/06/2013 ZIA HENDERSON MD Ot 433.10 CAROTID ARTERY OCCLUSION W O CEREBRAL IN 12/06/2013 ZIA HENDERSON MD Ot 585.9 CHRONIC KIDNEY DISEASE, UNSPECIFIED 12/06/2013 ZIA HENDERSON MD Ot 714.0 RHEUMATOID ARTHRITIS 12/06/2013 ZIA HENDERSON MD Ot 716.90 ARTHROPATHY NOS-UNSPEC 12/06/2013 ZIA HENDERSON MD Ot 733.00 OSTEOPOROSIS NOS 12/06/2013 ZIA HENDERSON MD Ot 996.72 OTH COMPLICATIONS DUE TO OTH CARD DEVICE 12/06/2013 ZIA HENDERSON MD Ot V45.81 AORTOCORONARY BYPASS 01/20/2014 ZIA HENDERSON MD Ot V45.81 AORTOCORONARY BYPASS 01/20/2014 ZIA HENDERSON MD Ot V57.89 REHABILITATION PROC NEC 01/20/2014 ZIA HENDERSON MD Ot V58.73 AFTERCARE POST SURGERY CIRULATORY SYSTEM 05/02/2014 GEO PASCAL HEEL LINING PASTER Ot 202.80 05/02/2014 GEO PASCAL HEEL LINING PASTER Ot 279.00 05/02/2014 GEO PASCAL HEEL LINING PASTER Ot 585.3 05/02/2014 GEO PASCAL HEEL LINING PASTER Ot 714.0 05/02/2014 GEO PASCAL HEEL LINING PASTER Ot V58.69 05/02/2014 GEO PASCAL HEEL LINING PASTER Ot V87.41 05/06/2014 GEO PASCAL HEEL LINING PASTER Ot 202.80 05/06/2014 GEO PASCAL HEEL LINING PASTER Ot 279.00 05/06/2014 GEO PASCAL HEEL LINING PASTER Ot 585.3 05/06/2014 GEO PASCAL HEEL LINING PASTER Ot 714.0 05/06/2014 GEO PASCAL HEEL LINING PASTER Ot V58.69 05/06/2014 GEO PASCAL HEEL LINING PASTER Ot V87.41 06/23/2014 ALON SHELBY MD Ot V76.12 06/26/2014 SEBAS KENNEDY Ot 202.80 OTH LYMPHOMAS EXTRANODAL SOLID ORGAN U 06/26/2014 SEBAS KENNEDY Ot 238.71 ESSENTIAL THROMBOCYTHEMIA 06/26/2014 SEBAS KENNEDY Ot 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 06/26/2014 SEBAS KENNEDY Ot 585.3 CHRONIC KIDNEY DISEASE, STAGE III (MODER 06/26/2014 SEBAS EKNNEDY Ot 714.0 RHEUMATOID ARTHRITIS 06/26/2014 SEBAS KENNEDY Ot V58.69 OTH MED,LT,CURRENT USE 07/11/2014 ALON SHELBY MD Ot V76.12 08/29/2014 LUCY CHEEK MD Ot 401.9 HYPERTENSION NOS 08/29/2014 LUCY CHEEK MD Ot 780.4 DIZZINESS AND GIDDINESS 08/29/2014 LUCY CHEEK MD Ot 880.03 OPEN WOUND OF UPPER ARM 08/29/2014 LUCY CHEEK MD Ot E000.8 OTHER EXTERNAL CAUSE STATUS 08/29/2014 LUCY CHEEK MD Ot E001.0 ACTIVITIES INVOLVING WALKING, MARCHING A 08/29/2014 LUCY CHEEK MD Ot E849.0 ACCIDENT IN HOME 08/29/2014 LUCY CHEEK MD Ot E917.3 FURNIT W/O SUB FALL 08/29/2014 LUCY CHEEK MD Ot V06.1 [id number], COMBINED [ 08/29/2014 LUCY CHEEK MD Ot V45.81 AORTOCORONARY BYPASS 08/29/2014 LUCY CHEEK MD Ot V58.61 ANTICOAGULANTS,LT,CURRENT USE 10/10/2014 MARCIA, BOBAN N Ot 202.80 10/10/2014 MARCIA, BOBAN N Ot 238.71 10/10/2014 MARCIA, BOBAN N Ot 279.00 10/10/2014 MARCIA, BOBAN N Ot 585.3 10/10/2014 MARCIA, BOBAN N Ot 714.0 10/10/2014 MARCIA, BOBAN N Ot V58.69 10/10/2014 MARCIA, BOBAN N Ot 202.80 10/10/2014 MARCIA, BOBAN N Ot 238.71 10/10/2014 MARCIA, BOBAN N Ot 279.00 10/10/2014 MARCIA, BOBAN N Ot 585.3 10/10/2014 MARCIA, BOBAN N Ot 714.0 10/10/2014 MARCIA, BOBAN N Ot V58.69 10/10/2014 MARCIA, BOBAN N Ot 202.80 10/10/2014 MARCIA, BOBAN N Ot 238.71 10/10/2014 MARCIA, BOBAN N Ot 279.00 10/10/2014 MARCIA, BOBAN N Ot 585.3 10/10/2014 MARCIA, BOBAN N Ot 714.0 10/10/2014 MARCIA, BOBAN N Ot V58.69 10/13/2014 MARCIA, BOBAN N Ot 202.80 10/13/2014 MARCIA, BOBAN N Ot 238.71 10/13/2014 MARCIA, BOBAN N Ot 279.00 10/13/2014 MARCIA, BOBAN N Ot 585.3 10/13/2014 MARCIA, BOBTRUDY N Ot 714.0 10/13/2014 MARCIA, BOBAN N Ot V58.69 10/27/2014 AFSANEH SMITH, ALON Sanderson Ot 786.2 11/07/2014 MARCIA, BOBAN N Ot 202.80 11/07/2014 MARCIA, BOBAN N Ot 238.71 11/07/2014 MARCIA, BOBAN N Ot 279.00 11/07/2014 MARCIA, BOBTRUDY N Ot 585.3 11/07/2014 MARCIA, BOBTRUDY N Ot 714.0 11/07/2014 MARCIA, SEBAS N Ot V58.69 11/11/2014 AFSANEH SMITH, ALON Sanderson Ot 786.2 11/18/2014 SANTIAGO SMITH, ZIA J Ot 244.9 11/18/2014 SANTIAGO SMITH, ZIA J Ot 272.4 11/18/2014 SANTIAGO SMITH, ZIA J Ot 401.9 11/18/2014 SANTIAGO SMITH, ZIA J Ot 414.00 11/24/2014 AFSANEH SMITH, ALON Sanderson Ot 486 11/24/2014 AFSANEH SMITH, ALON Sanderson Ot 786.2 12/01/2014 GEO PASCAL HEEL LINING PASTER Ot 202.80 12/01/2014 GEO PASCAL HEEL LINING PASTER Ot 279.00 12/01/2014 GEO PASCAL HEEL LINING PASTER Ot 585.3 12/01/2014 GEO PASCAL HEEL LINING PASTER Ot 714.0 12/01/2014 GEO PASCAL HEEL LINING PASTER Ot V58.69 12/01/2014 GEO PASCAL HEEL LINING PASTER Ot V87.41 12/04/2014 GEO PASCAL HEEL LINING PASTER Ot 202.80 12/04/2014 GEO PASCAL HEEL LINING PASTER Ot 279.00 12/04/2014 GEO PASCAL HEEL LINING PASTER Ot 585.3 12/04/2014 GEO PASCAL HEEL LINING PASTER Ot 714.0 12/04/2014 GEO PASCAL HEEL LINING PASTER Ot V58.69 12/04/2014 GEO PASCAL HEEL LINING PASTER Ot V87.41 12/04/2014 AFSANEH SMITH, ALON Sanderson Ot 486 12/04/2014 AFSANEH SMITH, ALON Sanderson Ot 786.2 12/11/2014 SANTIAGO SMITH, ZIA Sanderson Ot 272.4 12/11/2014 SANTIAGO SMITH, ZIA Sanderson Ot 401.9 12/11/2014 SANTIAGO SMITH, ZIA Sanderson Ot 414.00 12/11/2014 SANTIAGO SMITH, ZIA Sanderson Ot 433.10 12/18/2014 SANTIAGO SMITH, ZIA Sanderson Ot 272.4 12/18/2014 SANTIAGO SMITH, ZIA Sanderson Ot 401.9 12/18/2014 SANTIAGO SMITH, ZIA Sanderson Ot 414.00 12/18/2014 ZIA HENDERSON MD Ot 433.10 01/05/2015 MARCIA, BOBAN N Ot 202.80 01/05/2015 MARCIA, BOBAN N Ot 238.71 01/05/2015 MARCIA, BOBAN N Ot 279.00 01/05/2015 MARCIA, BOBAN N Ot 585.3 01/05/2015 MARCIA, BOBAN N Ot 714.0 01/05/2015 MARCIA, BOBAN N Ot V58.69 01/08/2015 MARCIA, BOBAN N Ot 202.80 OTH LYMPHOMAS EXTRANODAL SOLID ORGAN U 01/08/2015 MARCIA, BOBAN N Ot 238.71 ESSENTIAL THROMBOCYTHEMIA 01/08/2015 MARCIA, BOBAN N Ot 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 01/08/2015 MARCIA BOBAN N Ot 585.3 CHRONIC KIDNEY DISEASE, STAGE III (MODER 01/08/2015 MARCIA, BOBAN N Ot 714.0 RHEUMATOID ARTHRITIS 01/08/2015 MARCIA, BOBAN N Ot V58.69 OTH MED,LT,CURRENT USE 01/26/2015 SANTIAGO SMITH, ZIA Sanderson Ot 272.4 01/26/2015 SANTIAGO SMITH, ZIA Sanderson Ot 401.9 01/26/2015 SANTIAGO SMITH, ZIA Sanderson Ot 414.00 01/26/2015 ZIA HENDERSON MD Ot 433.10 02/03/2015 MARCIA BOBAN N Ot 202.80 02/03/2015 MARCIA, BOBAN N Ot 238.71 02/03/2015 MARCIA, BOBAN N Ot 279.00 02/03/2015 MARCIASEBAS OSHEA N Ot 585.3 02/03/2015 MARCIASEBAS OSHEA N Ot 714.0 02/03/2015 SEBAS KENNEDY N Ot V58.69 02/25/2015 SEBAS KENNEDY N Ot 202.80 OTH LYMPHOMAS EXTRANODAL SOLID ORGAN U 02/25/2015 SEBAS KENNEDY N Ot 238.71 ESSENTIAL THROMBOCYTHEMIA 02/25/2015 SEBAS KENNEDY N Ot 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 02/25/2015 SEBAS KENNEDY N Ot 585.3 CHRONIC KIDNEY DISEASE, STAGE III (MODER 02/25/2015 SEBAS KENNEDY N Ot 714.0 RHEUMATOID ARTHRITIS 02/25/2015 SEBAS KENNEDY N Ot V58.69 OTH MED,LT,CURRENT USE 04/27/2015 SEBAS KENNEDY N Ot 202.80 04/27/2015 MARCIASEBAS OSHEA N Ot 238.71 04/27/2015 MARCIASEBAS OSHEA N Ot 279.00 04/27/2015 MARCIASEBAS OSHEA N Ot 585.3 04/27/2015 SEBAS KENNEDY N Ot 714.0 04/27/2015 SEBAS KENNEDY N Ot V58.69 04/30/2015 GEO PASCAL HEEL LINING PASTER Ot C85.90 04/30/2015 GEO PASCAL HEEL LINING PASTER Ot D80.1 04/30/2015 GEO PASCAL HEEL LINING PASTER Ot M06.9 04/30/2015 GEO PASCAL HEEL LINING PASTER Ot N18.3 04/30/2015 GEO PASCAL S HEEL LINING PASTER Ot Z79.899 04/30/2015 GEO PASCAL S HEEL LINING PASTER Ot Z92.21 05/06/2015 GEO PASCAL S HEEL LINING PASTER Ot C85.90 05/06/2015 GEO PASCAL HEEL LINING PASTER Ot D80.1 05/06/2015 GEO PASCAL HEEL LINING PASTER Ot M06.9 05/06/2015 GEO PASCAL HEEL LINING PASTER Ot N18.3 05/06/2015 GEO PASCAL S HEEL LINING PASTER Ot Z79.899 05/06/2015 GEO PASCAL S HEEL LINING PASTER Ot Z92.21 05/15/2015 SEBAS KENNEDY Ot C85.90 05/15/2015 SEBAS KENNEDY Ot D80.1 05/15/2015 SEBAS KENNEDY Ot M06.9 05/15/2015 SEBAS KENNEDY Ot N18.3 05/15/2015 SEBAS KENNEDY Ot Z79.899 05/15/2015 SEBAS KENNEDY Ot Z92.21 05/20/2015 Ot 255.8 05/20/2015 Ot 714.0 05/20/2015 Ot V58.69 05/20/2015 Ot 715.36 05/20/2015 Ot 791.9 05/20/2015 Ot V57.21 05/20/2015 Ot V72.63 05/20/2015 Ot V72.81 05/20/2015 Ot 272.4 05/20/2015 Ot 255.41 05/20/2015 Ot 733.90 05/20/2015 Ot V49.81 05/20/2015 Ot V58.65 05/20/2015 Ot V82.81 05/20/2015 Ot 714.0 05/20/2015 Ot 790.8 05/20/2015 Ot 794.09 05/20/2015 Ot V58.65 05/20/2015 Ot 714.0 05/20/2015 Ot 790.6 05/20/2015 Ot V58.65 05/20/2015 Ot 793.89 05/20/2015 Ot V76.12 05/20/2015 Ot 793.80 05/20/2015 Ot 715.36 05/20/2015 Ot V72.63 05/20/2015 Ot V72.83 05/20/2015 Ot V74.8 05/20/2015 ITALO ALVAREZ MD Ot 599.0 05/20/2015 GEO PASCAL HEEL LINING PASTER Ot 202.80 05/20/2015 GEO PASCAL HEEL LINING PASTER Ot 279.00 05/20/2015 GEO PASCAL HEEL LINING PASTER Ot 288.60 05/20/2015 GEO PASCAL HEEL LINING PASTER Ot 714.0 05/20/2015 GEO PASCAL HEEL LINING PASTER Ot V13.02 05/20/2015 GEO PASCAL HEEL LINING PASTER Ot V58.69 05/20/2015 GEO PASCAL HEEL LINING PASTER Ot V87.41 05/20/2015 PASCALGEO Leslie HEEL LINING PASTER Ot 202.80 05/20/2015 PASCALGEO Leslie HEEL LINING PASTER Ot 279.00 05/20/2015 GEO PASCAL S HEEL LINING PASTER Ot 714.0 05/20/2015 GEO PASCAL S HEEL LINING PASTER Ot V58.69 05/20/2015 GEO PASCAL S HEEL LINING PASTER Ot V87.41 05/20/2015 SCOTT, KEL V APRON WORKER Ot 268.9 05/20/2015 SCOTT, KEL V APRON WORKER Ot 714.0 05/20/2015 SCOTT, KEL V APRON WORKER Ot V58.64 05/20/2015 SCOTT, KEL V APRON WORKER Ot V58.69 05/20/2015 PASCALGEO Leslie HEEL LINING PASTER Ot 202.80 05/20/2015 PASCALGEO Leslie HEEL LINING PASTER Ot 238.71 05/20/2015 PASCALGEO Leslie HEEL LINING PASTER Ot 279.00 05/20/2015 PASCALGEO Leslie S HEEL LINING PASTER Ot 585.3 05/20/2015 PASCALGEO Leslie HEEL LINING PASTER Ot 714.0 05/20/2015 PASCALGEO Leslie HEEL LINING PASTER Ot V58.69 05/20/2015 SANTIAGO SMITH, ZIA Sanderson Ot 272.4 05/20/2015 SANTIAGO SMITH, ZIA Sanderson Ot 403.90 05/20/2015 SANTIAGO SMITH, ZIA Sanderson Ot 411.1 05/20/2015 SANTIAGO SMITH, ZIA Sanderson Ot 414.01 05/20/2015 SANTIAGO SMITH, ZIA Sanderson Ot 477.9 05/20/2015 SANTIAGO SMITH, ZIA Sanderson Ot 585.9 05/20/2015 SANTIAGO SMITH, ZIA Sanderson Ot 716.90 05/20/2015 SANTIAGO SMITH, ZIA Sanderson Ot V58.69 05/20/2015 PASCALGEO Leslie HEEL LINING PASTER Ot 202.80 05/20/2015 PASCALGEO Leslie HEEL LINING PASTER Ot 279.00 05/20/2015 PASCALGEO S HEEL LINING PASTER Ot 585.3 05/20/2015 NAIDA GEO S HEEL LINING PASTER Ot 714.0 05/20/2015 NAIDA GEO S HEEL LINING PASTER Ot V58.69 05/20/2015 GEO PASCAL S HEEL LINING PASTER Ot V87.41 05/20/2015 AFSANEH SMITH, ALON Sanderson Ot V76.12 05/20/2015 AFSANEH SMITH, ALON Sanderson Ot 786.2 05/20/2015 SANTIAGO SMITH, ZIA J Ot 244.9 05/20/2015 SANTIAGO SMITH, ZIA J Ot 272.4 05/20/2015 SANTIAGO SMITH, ZIA J Ot 401.9 05/20/2015 SANTIAGO SMITH, ZIA J Ot 414.00 05/20/2015 SANTIAGO SMITH, ZIA J Ot 272.4 05/20/2015 SANTIAGO SMITH, ZIA J Ot 401.9 05/20/2015 SANTIAGO SMITH, ZIA J Ot 414.00 05/20/2015 SANTIAGO SMITH, ZIA Sanderson Ot 433.10 05/20/2015 GEO PASCAL S HEEL LINING PASTER Ot 202.80 05/20/2015 GEO PASCAL S HEEL LINING PASTER Ot 279.00 05/20/2015 GEO PASCAL S HEEL LINING PASTER Ot 585.3 05/20/2015 GEO PASCAL S HEEL LINING PASTER Ot 714.0 05/20/2015 GEO PASCAL S HEEL LINING PASTER Ot V58.69 05/20/2015 GEO PASCAL S HEEL LINING PASTER Ot V87.41 05/20/2015 AFSANEH SMITH, ALON Sanderson Ot 486 05/20/2015 AFSANEH SMITH, ALON Sanderson Ot 786.2 05/20/2015 SANTIAGO SMITH, ZIA Sanderson Ot 272.4 05/20/2015 SANTIAGO SMITH, ZIA Sanderson Ot 401.9 05/20/2015 SANTIAGO SMITH, ZIA Sanderson Ot 414.00 05/20/2015 SANTIAGO SMITH, ZIA Sanderson Ot 433.10 05/20/2015 MARCIA, BOBAN N Ot C85.90 05/20/2015 MARCIA, BOBAN N Ot D80.1 05/20/2015 MARCIA, BOBAN N Ot M06.9 05/20/2015 MARCIA, BOBAN N Ot N18.3 05/20/2015 MARICA, BOBAN N Ot Z79.899 05/20/2015 MARCIA, BOBAN N Ot Z92.21 05/20/2015 GEO PASCAL S HEEL LINING PASTER Ot C85.90 05/20/2015 GEO PASCAL S HEEL LINING PASTER Ot D80.1 05/20/2015 GEO PASCAL HEEL LINING PASTER Ot M06.9 05/20/2015 GEO PASCAL HEEL LINING PASTER Ot N18.3 05/20/2015 GEO PASCAL HEEL LINING PASTER Ot Z79.899 05/20/2015 GEO PASCAL HEEL LINING PASTER Ot Z92.21 05/20/2015 SANTIAGO SMITH, ZIA Sanderson Ot E78.5 05/20/2015 SANTIAGO SMITH, ZIA Sanderson Ot I10 05/20/2015 SANTIAGO SMITH, ZIA Sanderson Ot I25.10 05/20/2015 SANTIAGO SMITH, ZIA Sanderson Ot I65.23 05/20/2015 MARCIA, BOBAN N Ot C85.90 05/20/2015 MARCIA, BOBAN N Ot D80.1 05/20/2015 MARCIA, BOBAN N Ot M06.9 05/20/2015 MARCIA, BOBAN N Ot N18.3 05/20/2015 MARCIA, BOBAN N Ot Z79.899 05/20/2015 MARCIA, BOBAN N Ot Z92.21 06/09/2015 MARCIA, BOBAN N Ot C85.90 06/09/2015 MARCIA BOBAN N Ot D80.1 06/09/2015 MARCIA, BOBAN N Ot M06.9 06/09/2015 MARCIA, BOBAN N Ot N18.3 06/09/2015 MARCIA, BOBAN N Ot Z79.899 06/09/2015 MARCIA BOBAN N Ot Z92.21 06/09/2015 ALON SHELBY MD Ot N64.4 06/11/2015 MARCIA BOBAN N Ot C85.90 NON-[place] LYMPHOMA, UNSPECIFIED, UNSPE 06/11/2015 MARCIA, BOBAN N Ot D80.1 NONFAMILIAL HYPOGAMMAGLOBULINEMIA 06/11/2015 MARCIA, BOBAN N Ot M06.9 RHEUMATOID ARTHRITIS, UNSPECIFIED 06/11/2015 MARCIA, BOBAN N Ot N18.3 CHRONIC KIDNEY DISEASE, STAGE 3 (MODERAT 06/11/2015 MARCIA BOBAN N Ot Z79.899 OTHER [facility] (CURRENT) DRUG THERAPY 06/11/2015 MARCIASEBAS OSHEA N Ot Z92.21 PERSONAL HISTORY OF ANTINEOPLASTIC CHEMO 06/17/2015 ALON SHELBY MD Ot N64.4 07/09/2015 MARCIA, BOBAN N Ot C85.90 07/09/2015 MARCIA, BOBAN N Ot D80.1 07/09/2015 MARCIA, BOBAN N Ot M06.9 07/09/2015 MARCIA, BOBAN N Ot N18.3 07/09/2015 MARCIA, BOBAN N Ot Z79.899 07/09/2015 MARCIA, BOBAN N Ot Z92.21 07/13/2015 MARCIA, BOBAN N Ot C85.90 07/13/2015 MARCIA, BOBAN N Ot D80.1 07/13/2015 MARCIA, BOBAN N Ot M06.9 07/13/2015 MARCIA, BOBAN N Ot N18.3 07/13/2015 MARCIA, BOBAN N Ot Z79.899 07/13/2015 MARCIA, BOBAN N Ot Z92.21 08/18/2015 MARCIA, BOBAN N Ot C85.90 08/18/2015 MARCIA, BOBAN N Ot D80.1 08/18/2015 MARCIA, BOBAN N Ot M06.9 08/18/2015 MARCIA, BOBAN N Ot N18.3 08/18/2015 MARCIA, BOBAN N Ot Z79.899 08/18/2015 MARCIA, BOBAN N Ot Z92.21 08/26/2015 MARCIA, BOBAN N Ot C85.90 08/26/2015 MARCIA, BOBAN N Ot D80.1 08/26/2015 MARCIA, BOBAN N Ot M06.9 08/26/2015 MARCIA, BOBAN N Ot N18.3 08/26/2015 MARCIA, BOBAN N Ot Z79.899 08/26/2015 MARCIA, BOBAN N Ot Z92.21 10/08/2015 MARCIA, BOBAN N Ot C85.90 NON-[place] LYMPHOMA, UNSPECIFIED, UNSPE 10/08/2015 MARCIA, BOBAN N Ot D80.1 NONFAMILIAL HYPOGAMMAGLOBULINEMIA 10/08/2015 MARCIA, BOBAN N Ot M06.9 RHEUMATOID ARTHRITIS, UNSPECIFIED 10/08/2015 MARCIA, BOBAN N Ot N18.3 CHRONIC KIDNEY DISEASE, STAGE 3 (MODERAT 10/08/2015 MARCIA, BOBAN N Ot Z79.899 OTHER FDC (CURRENT) DRUG THERAPY 10/08/2015 MARCIASEBAS N Ot Z92.21 PERSONAL HISTORY OF ANTINEOPLASTIC CHEMO 10/09/2015 MARCIAMILAGROAN N Ot C85.90 NON-[place] LYMPHOMA, UNSPECIFIED, UNSPE 10/09/2015 MARCIA, MILAGROAN N Ot D80.1 NONFAMILIAL HYPOGAMMAGLOBULINEMIA 10/09/2015 MARCIASEBAS N Ot M06.9 RHEUMATOID ARTHRITIS, UNSPECIFIED 10/09/2015 MARCIASEBAS N Ot N18.3 CHRONIC KIDNEY DISEASE, STAGE 3 (MODERAT 10/09/2015 MARCIASEBAS N Ot Z79.899 OTHER GARMENT LINER (CURRENT) DRUG THERAPY 10/09/2015 MARCIASEBAS OSHEA N Ot Z92.21 PERSONAL HISTORY OF ANTINEOPLASTIC CHEMO 10/13/2015 MARCIA, SEBAS N Ot C85.90 NON-[place] LYMPHOMA, UNSPECIFIED, UNSPE 10/13/2015 MARCIA, BOBAN N Ot D80.1 NONFAMILIAL HYPOGAMMAGLOBULINEMIA 10/13/2015 MARCIASEBAS N Ot M06.9 RHEUMATOID ARTHRITIS, UNSPECIFIED 10/13/2015 MARCIASEBAS N Ot N18.3 CHRONIC KIDNEY DISEASE, STAGE 3 (MODERAT 10/13/2015 MARCIASEBAS N Ot Z79.899 OTHER FDC (CURRENT) DRUG THERAPY 10/13/2015 MARCIASEBAS N Ot Z92.21 PERSONAL HISTORY OF ANTINEOPLASTIC CHEMO 11/20/2015 MARCIA, BOBAN N Ot C85.90 NON-[place] LYMPHOMA, UNSPECIFIED, UNSPE 11/20/2015 MARCIAMILAGROAN N Ot D80.1 NONFAMILIAL HYPOGAMMAGLOBULINEMIA 11/20/2015 MARCIA, BOBAN N Ot M06.9 RHEUMATOID ARTHRITIS, UNSPECIFIED 11/20/2015 MARCIA, BOBAN N Ot N18.3 CHRONIC KIDNEY DISEASE, STAGE 3 (MODERAT 11/20/2015 MARCIA BOBAN N Ot Z51.11 ENCOUNTER FOR ANTINEOPLASTIC CHEMOTHERAP 11/20/2015 MARCIA BOBAN N Ot Z79.899 OTHER GARMENT LINER (CURRENT) DRUG THERAPY 12/03/2015 MARCIA, BOBAN N Ot C85.90 NON-[place] LYMPHOMA, UNSPECIFIED, UNSPE 12/03/2015 MARCIA, BOBAN N Ot D80.1 NONFAMILIAL HYPOGAMMAGLOBULINEMIA 12/03/2015 MARCIASEBAS N Ot M06.9 RHEUMATOID ARTHRITIS, UNSPECIFIED 12/03/2015 MARCIASEBAS N Ot N18.3 CHRONIC KIDNEY DISEASE, STAGE 3 (MODERAT 12/03/2015 MARCIASEBAS N Ot Z51.11 ENCOUNTER FOR ANTINEOPLASTIC CHEMOTHERAP 12/03/2015 MARCIASEBAS N Ot Z79.899 OTHER FDC (CURRENT) DRUG THERAPY 01/07/2016 MARCIA BOBTRUDY N Ot C85.90 NON-[place] LYMPHOMA, UNSPECIFIED, UNSPE 01/07/2016 MARCIASEBAS N Ot D80.1 NONFAMILIAL HYPOGAMMAGLOBULINEMIA 01/07/2016 MARCIASEBAS OSHEA N Ot M06.9 RHEUMATOID ARTHRITIS, UNSPECIFIED 01/07/2016 MARCIASEBAS N Ot N18.3 CHRONIC KIDNEY DISEASE, STAGE 3 (MODERAT 01/07/2016 MARCIA BOBTRUDY N Ot Z51.11 ENCOUNTER FOR ANTINEOPLASTIC CHEMOTHERAP 01/07/2016 MARCIA BOBTRUDY N Ot Z79.899 OTHER FDC (CURRENT) DRUG THERAPY 01/08/2016 MARCIA BOBAN N Ot C85.90 NON-[place] LYMPHOMA, UNSPECIFIED, UNSPE 01/08/2016 MARCIASEBAS N Ot D80.1 NONFAMILIAL HYPOGAMMAGLOBULINEMIA 01/08/2016 MARCIASEBAS N Ot M06.9 RHEUMATOID ARTHRITIS, UNSPECIFIED 01/08/2016 MARCIASEBAS N Ot N18.3 CHRONIC KIDNEY DISEASE, STAGE 3 (MODERAT 01/08/2016 MARCIASEBAS N Ot Z51.11 ENCOUNTER FOR ANTINEOPLASTIC CHEMOTHERAP 01/08/2016 MARCIA, BOBAN N Ot Z79.899 OTHER FDC (CURRENT) DRUG THERAPY 03/25/2016 Ot 255.8 ADRENAL DISORDER NEC 03/25/2016 Ot 272.4 HYPERLIPIDEMIA NEC/NOS 03/25/2016 Ot 255.41 GLUCOCORTICOID DEFICIENCY 03/25/2016 Ot 733.90 BONE CARTILAGE DIS NOS 03/25/2016 Ot V49.81 ASYMPT POSTMENOPAUSAL STATUS (AGE-RELATE 03/25/2016 Ot V58.65 LONG-TERM( CURRENT)USE OF STEROIDS 03/25/2016 Ot V82.81 SCREENING FOR OSTEOPOROSIS 03/25/2016 Ot 714.0 RHEUMATOID ARTHRITIS 03/25/2016 Ot 790.8 VIREMIA NOS 03/25/2016 Ot 794.09 ABN APRON WORKER FUNCT STUDY NEC 03/25/2016 Ot V58.65 LONG-TERM( CURRENT)USE OF STEROIDS 03/25/2016 Ot 714.0 RHEUMATOID ARTHRITIS 03/25/2016 Ot 790.6 ABN BLOOD CHEMISTRY NEC 03/25/2016 Ot V58.65 LONG-TERM( CURRENT)USE OF STEROIDS 03/25/2016 Ot 793.89 OTH (ABN) FINDINGS ON RADIOLOGICAL EXAMI 03/25/2016 Ot V76.12 OTH SCREEN MAMMO-MALIGN NEOPLASM OF [place] 03/25/2016 Ot 793.80 UNSPEC ABNORMAL MAMMOGRAM 03/25/2016 Ot 715.36 LOC OSTEOARTH NOS-L/LEG 03/25/2016 Ot V72.63 PRE- PROCEDURAL LABORATORY EXAMINATION 03/25/2016 Ot V72.83 EXAM PRE- OPERATIVE NEC 03/25/2016 Ot V74.8 SCREEN- BACTERIAL DIS NEC 03/25/2016 ANTONIO SMITH, [place] A Ot 599.0 URIN TRACT INFECTION NOS 03/25/2016 GEO PASCAL HEEL LINING PASTER Ot 202.80 OTH LYMPHOMAS EXTRANODAL SOLID ORGAN U 03/25/2016 GEO PASCAL HEEL LINING PASTER Ot 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 03/25/2016 GEO PASCAL HEEL LINING PASTER Ot 288.60 LEUKOCYTOSIS, UNSPECIFIED 03/25/2016 GEO PASCALP Ot 714.0 RHEUMATOID ARTHRITIS 03/25/2016 GEO PASCAL HEEL LINING PASTER Ot V13.02 PERSONAL HISTORY, URINARY (TRACT) INFECT 03/25/2016 GEO PASCAL HEEL LINING PASTER Ot V58.69 OTH MED,LT,CURRENT USE 03/25/2016 GEO PASCAL HEEL LINING PASTER Ot V87.41 PERSONAL HISTORY OF ANTINEOPLASTIC CHEMO 03/25/2016 GEO PASCAL HEEL LINING PASTER Ot 202.80 OTH LYMPHOMAS EXTRANODAL SOLID ORGAN U 03/25/2016 GEO PASCAL HEEL LINING PASTER Ot 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 03/25/2016 GEO PASCAL HEEL LINING PASTER Ot 714.0 RHEUMATOID ARTHRITIS 03/25/2016 GEO PASCAL HEEL LINING PASTER Ot V58.69 OTH MED,LT,CURRENT USE 03/25/2016 GEO PASCAL HEEL LINING PASTER Ot V87.41 PERSONAL HISTORY OF ANTINEOPLASTIC CHEMO 03/25/2016 KEL CHAVEZ V APRON WORKER Ot 268.9 VITAMIN D DEFICIENCY NOS 03/25/2016 SCOTTLIMA BRYANTINE V APRON WORKER Ot 714.0 RHEUMATOID ARTHRITIS 03/25/2016 SCOTTLIMAKEL V APRON WORKER Ot V58.64 LONG-TERM(CURRENT)USE OF NON-STEROIDAL A 03/25/2016 SCOTT KEL V APRON WORKER Ot V58.69 OTH MED,LT,CURRENT USE 03/25/2016 GEO PASCAL HEEL LINING PASTER Ot 202.80 OTH LYMPHOMAS EXTRANODAL SOLID ORGAN U 03/25/2016 GEO PASCAL HEEL LINING PASTER Ot 238.71 ESSENTIAL THROMBOCYTHEMIA 03/25/2016 GEO PASCAL HEEL LINING PASTER Ot 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 03/25/2016 GEO PASCAL HEEL LINING PASTER Ot 585.3 CHRONIC KIDNEY DISEASE, STAGE III (MODER 03/25/2016 GEO PASCAL HEEL LINING PASTER Ot 714.0 RHEUMATOID ARTHRITIS 03/25/2016 GEO PASCAL HEEL LINING PASTER Ot V58.69 OTH MED,LT,CURRENT USE 03/25/2016 ZIA HENDERSON MD Ot 272.4 HYPERLIPIDEMIA NEC/NOS 03/25/2016 ZIA HENDERSON MD Ot 403.90 HYPTNSV CHR KID DIS, UNSPEC, W CHR KD ST 03/25/2016 ZIA HENDERSON MD Ot 411.1 INTERMED CORONARY SYND 03/25/2016 ZIA HENDERSON MD Ot 414.01 CORONARY ATHEROSCLEROSIS OF [place] CORON 03/25/2016 ZIA HENDERSON MD Ot 477.9 ALLERGIC RHINITIS NOS 03/25/2016 ZIA HENDERSON MD Ot 585.9 CHRONIC KIDNEY DISEASE, UNSPECIFIED 03/25/2016 ZIA HENDERSON MD Ot 716.90 ARTHROPATHY NOS-UNSPEC 03/25/2016 ZIA HENDERSON MD Ot V58.69 OTH MED,LT,CURRENT USE 03/25/2016 GEO PASCAL HEEL LINING PASTER Ot 202.80 OTH LYMPHOMAS EXTRANODAL SOLID ORGAN U 03/25/2016 GEO PASCAL HEEL LINING PASTER Ot 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 03/25/2016 GEO PASCAL HEEL LINING PASTER Ot 585.3 CHRONIC KIDNEY DISEASE, STAGE III (MODER 03/25/2016 GEO PASCAL HEEL LINING PASTER Ot 714.0 RHEUMATOID ARTHRITIS 03/25/2016 GEO PASCALP Ot V58.69 OTH MED,LT,CURRENT USE 03/25/2016 GEO PASCAL HEEL LINING PASTER Ot V87.41 PERSONAL HISTORY OF ANTINEOPLASTIC CHEMO 03/25/2016 ALON SHELBY MD Ot V76.12 OTH SCREEN MAMMO-MALIGN NEOPLASM OF [place] 03/25/2016 ALON SHELBY MD Ot 786.2 COUGH 03/25/2016 ZIA HENDERSON MD Ot 244.9 HYPOTHYROIDISM NOS 03/25/2016 ZIA HENDERSON MD Ot 272.4 HYPERLIPIDEMIA NEC/NOS 03/25/2016 ZIA HENDERSON MD Ot 401.9 HYPERTENSION NOS 03/25/2016 ZIA HENDERSON MD Ot 414.00 CORON ATHEROSCLER NOS TYPE VESSEL, NATIV 03/25/2016 ZIA HENDERSON MD Ot 272.4 HYPERLIPIDEMIA NEC/NOS 03/25/2016 ZIA HENDERSON MD Ot 401.9 HYPERTENSION NOS 03/25/2016 SANTIAGO SMITH, ZAI Sanderson Ot 414.00 CORON ATHEROSCLER NOS TYPE VESSEL, NATIV 03/25/2016 ZIA HENDERSON MD Ot 433.10 CAROTID ARTERY OCCLUSION W O CEREBRAL IN 03/25/2016 GEO PASCAL HEEL LINING PASTER Ot 202.80 OTH LYMPHOMAS EXTRANODAL SOLID ORGAN U 03/25/2016 GEO PASCAL S HEEL LINING PASTER Ot 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 03/25/2016 GEO PASCAL HEEL LINING PASTER Ot 585.3 CHRONIC KIDNEY DISEASE, STAGE III (MODER 03/25/2016 GEO PASCAL HEEL LINING PASTER Ot 714.0 RHEUMATOID ARTHRITIS 03/25/2016 GEO PASCAL HEEL LINING PASTER Ot V58.69 OTH MED,LT,CURRENT USE 03/25/2016 GEO PASCAL HEEL LINING PASTER Ot V87.41 PERSONAL HISTORY OF ANTINEOPLASTIC CHEMO 03/25/2016 ALON SHELBY MD Ot 486 PNEUMONIA, ORGANISM NOS 03/25/2016 ALON SHELBY MD Ot 786.2 COUGH 03/25/2016 ZIA HENDERSON MD Ot 272.4 HYPERLIPIDEMIA NEC/NOS 03/25/2016 ZIA HENDERSON MD Ot 401.9 HYPERTENSION NOS 03/25/2016 ZIA HENDERSON MD Ot 414.00 CORON ATHEROSCLER NOS TYPE VESSEL, NATIV 03/25/2016 ZIA HENDERSON MD Ot 433.10 CAROTID ARTERY OCCLUSION W O CEREBRAL IN 03/25/2016 GEO PASCAL Ot C85.90 NON-[place] LYMPHOMA, UNSPECIFIED, UNSPE 03/25/2016 GEO PASCAL Ot D80.1 NONFAMILIAL HYPOGAMMAGLOBULINEMIA 03/25/2016 GEO PASCALP Ot M06.9 RHEUMATOID ARTHRITIS, UNSPECIFIED 03/25/2016 GEO PASCAL Ot N18.3 CHRONIC KIDNEY DISEASE, STAGE 3 (MODERAT 03/25/2016 GEO PASCAL Ot Z79.899 OTHER GARMENT LINER (CURRENT) DRUG THERAPY 03/25/2016 GEO PASCAL Ot Z92.21 PERSONAL HISTORY OF ANTINEOPLASTIC CHEMO 03/25/2016 ZIA HENDERSON MD Ot E78.5 HYPERLIPIDEMIA, UNSPECIFIED 03/25/2016 ZIA HENDERSON MD Ot I10 ESSENTIAL (PRIMARY) HYPERTENSION 03/25/2016 ZIA HENDERSON MD Ot I25.10 ATHSCL HEART DISEASE OF [place] CORONARY 03/25/2016 ZIA HENDERSON MD Ot I65.23 OCCLUSION AND STENOSIS OF [place] 03/25/2016 ALON SHELBY MD Ot N64.4 MASTODYNIA 03/25/2016 SEBAS KENNEDY Ot C85.90 NON-[place] LYMPHOMA, UNSPECIFIED, UNSPE 03/25/2016 SEBAS KENNEDY Ot D80.1 NONFAMILIAL HYPOGAMMAGLOBULINEMIA 03/25/2016 SEBAS KENNEDY Ot M06.9 RHEUMATOID ARTHRITIS, UNSPECIFIED 03/25/2016 SEBAS KENNEDY Ot N18.3 CHRONIC KIDNEY DISEASE, STAGE 3 (MODERAT 03/25/2016 SEBAS KENNEDY Ot Z51.11 ENCOUNTER FOR ANTINEOPLASTIC CHEMOTHERAP 03/25/2016 SEBAS KENNEDY Ot Z79.899 OTHER FDC (CURRENT) DRUG THERAPY 03/28/2016 FLORA MALIK Ot E78.4 OTHER HYPERLIPIDEMIA 03/28/2016 FLORA MALIK Ot I10 ESSENTIAL (PRIMARY) HYPERTENSION 03/28/2016 FLORA MALIK Ot I25.10 ATHSCL HEART DISEASE OF [place] CORONARY 03/28/2016 FLORA MALIK Ot I65.23 OCCLUSION AND STENOSIS OF [place] 04/04/2016 MARCIA MILAGROTRUDY Jonathan Ot C85.90 NON-[place] LYMPHOMA, UNSPECIFIED, UNSPE 04/04/2016 SEBAS KENNEDY Jonathan Ot D80.1 NONFAMILIAL HYPOGAMMAGLOBULINEMIA 04/04/2016 MARCIA MILAGROTRUDY Jonathan Ot M06.9 RHEUMATOID ARTHRITIS, UNSPECIFIED 04/04/2016 MARCIA MILAGROTRUDY Jonathan Ot N18.3 CHRONIC KIDNEY DISEASE, STAGE 3 (MODERAT 04/04/2016 MARCIA SEBAS Castillo Ot Z51.11 ENCOUNTER FOR ANTINEOPLASTIC CHEMOTHERAP 04/04/2016 MARCIA SEBAS Castillo Ot Z79.899 OTHER FDC (CURRENT) DRUG THERAPY 04/07/2016 Ot E78.4 OTHER HYPERLIPIDEMIA 04/07/2016 Ot I10 ESSENTIAL ( PRIMARY) HYPERTENSION 04/07/2016 Ot I25.10 ATHSCL HEART DISEASE OF [place] CORONARY 04/07/2016 Ot I65.23 OCCLUSION AND STENOSIS OF [place] 04/07/2016 Ot E78.4 OTHER HYPERLIPIDEMIA 04/07/2016 Ot I10 ESSENTIAL ( PRIMARY) HYPERTENSION 04/07/2016 Ot I25.10 ATHSCL HEART DISEASE OF [place] CORONARY 04/07/2016 Ot I65.23 OCCLUSION AND STENOSIS OF [place] 04/15/2016 FLORA MALIK Ot E78.4 OTHER HYPERLIPIDEMIA 04/15/2016 FLORA MALIK Ot I10 ESSENTIAL (PRIMARY) HYPERTENSION 04/15/2016 FLORA MALIK Ot I25.10 ATHSCL HEART DISEASE OF [place] CORONARY 04/15/2016 FLORA MALIK Ot I65.23 OCCLUSION AND STENOSIS OF [place] 04/25/2016 FLORA MALIK Ot E78.4 OTHER HYPERLIPIDEMIA 04/25/2016 FLORA MALIK Ot I10 ESSENTIAL (PRIMARY) HYPERTENSION 04/25/2016 FLORA MALIK Ot I25.10 ATHSCL HEART DISEASE OF [place] CORONARY 04/25/2016 FLORA MALIK Ot I65.23 OCCLUSION AND STENOSIS OF [place] 04/26/2016 MARCIASEBAS OSHEA N Ot C85.90 NON-[place] LYMPHOMA, UNSPECIFIED, UNSPE 04/26/2016 SEBAS KENNEDY N Ot D80.1 NONFAMILIAL HYPOGAMMAGLOBULINEMIA 04/26/2016 SEBAS KENNEDY N Ot M06.9 RHEUMATOID ARTHRITIS, UNSPECIFIED 04/26/2016 SEBAS KENNEDY N Ot N18.3 CHRONIC KIDNEY DISEASE, STAGE 3 (MODERAT 04/26/2016 MARCIASEBAS OSEHA N Ot Z79.899 OTHER GARMENT LINER (CURRENT) DRUG THERAPY 04/27/2016 SEBAS KENNEDY N Ot C85.90 NON-[place] LYMPHOMA, UNSPECIFIED, UNSPE 04/27/2016 SEBAS KENNEDY N Ot D80.1 NONFAMILIAL HYPOGAMMAGLOBULINEMIA 04/27/2016 SEBAS KENNEDY N Ot M06.9 RHEUMATOID ARTHRITIS, UNSPECIFIED 04/27/2016 SEBAS KENNEDY N Ot N18.3 CHRONIC KIDNEY DISEASE, STAGE 3 (MODERAT 04/27/2016 MARCIASEBAS OSHEA N Ot Z79.899 OTHER GARMENT LINER (CURRENT) DRUG THERAPY 04/27/2016 Ot E78.4 OTHER HYPERLIPIDEMIA 04/27/2016 Ot I10 ESSENTIAL ( PRIMARY) HYPERTENSION 04/27/2016 Ot I25.10 ATHSCL HEART DISEASE OF [place] CORONARY 04/27/2016 Ot I65.23 OCCLUSION AND STENOSIS OF [place] 05/05/2016 Ot E78.4 OTHER HYPERLIPIDEMIA 05/05/2016 Ot I10 ESSENTIAL ( PRIMARY) HYPERTENSION 05/05/2016 Ot I25.10 ATHSCL HEART DISEASE OF [place] CORONARY 05/05/2016 Ot I65.23 OCCLUSION AND STENOSIS OF [place] 06/16/2016 SEBAS KENNEDY N Ot C85.90 NON-[place] LYMPHOMA, UNSPECIFIED, UNSPE 06/16/2016 SEBAS KENNEDY N Ot D80.1 NONFAMILIAL HYPOGAMMAGLOBULINEMIA 06/16/2016 SEBAS KENNEDY N Ot M06.9 RHEUMATOID ARTHRITIS, UNSPECIFIED 06/16/2016 MARCIASEBAS OSHEA N Ot N18.3 CHRONIC KIDNEY DISEASE, STAGE 3 (MODERAT 06/16/2016 MARCIASEBAS N Ot Z79.899 OTHER GARMENT LINER (CURRENT) DRUG THERAPY 06/24/2016 MARCIA, BOBAN N Ot C85.90 NON-[place] LYMPHOMA, UNSPECIFIED, UNSPE 06/24/2016 MARCIA, BOBAN N Ot D80.1 NONFAMILIAL HYPOGAMMAGLOBULINEMIA 06/24/2016 MARCIA, BOBAN N Ot M06.9 RHEUMATOID ARTHRITIS, UNSPECIFIED 06/24/2016 MARCIA, BOBAN N Ot N18.3 CHRONIC KIDNEY DISEASE, STAGE 3 (MODERAT 06/24/2016 MARCIA, BOBAN N Ot Z79.899 OTHER FDC (CURRENT) DRUG THERAPY 07/20/2016 MARCIA, BOBAN N Ot C85.90 NON-[place] LYMPHOMA, UNSPECIFIED, UNSPE 07/20/2016 MARCIA, BOBAN N Ot D80.1 NONFAMILIAL HYPOGAMMAGLOBULINEMIA 07/20/2016 MARCIA, BOBAN N Ot M06.9 RHEUMATOID ARTHRITIS, UNSPECIFIED 07/20/2016 MARCIA, BOBAN N Ot N18.3 CHRONIC KIDNEY DISEASE, STAGE 3 (MODERAT 07/20/2016 MARCIA, BOBAN N Ot Z79.899 OTHER FDC (CURRENT) DRUG THERAPY 07/28/2016 MARCIA, BOBAN N Ot C85.90 NON-[place] LYMPHOMA, UNSPECIFIED, UNSPE 07/28/2016 MARCIA, BOBAN N Ot D80.1 NONFAMILIAL HYPOGAMMAGLOBULINEMIA 07/28/2016 MARCIA, BOBAN N Ot M06.9 RHEUMATOID ARTHRITIS, UNSPECIFIED 07/28/2016 MARCIA, BOBAN N Ot N18.3 CHRONIC KIDNEY DISEASE, STAGE 3 (MODERAT 07/28/2016 MARCIA, BOBAN N Ot Z79.899 OTHER FDC (CURRENT) DRUG THERAPY 09/21/2016 MARCIA, BOBAN N Ot C85.90 NON-[place] LYMPHOMA, UNSPECIFIED, UNSPE 09/21/2016 MARCIA, BOBAN N Ot D80.1 NONFAMILIAL HYPOGAMMAGLOBULINEMIA 09/21/2016 MARCIA, BOBAN N Ot M06.9 RHEUMATOID ARTHRITIS, UNSPECIFIED 09/21/2016 MARCIA, BOBAN N Ot N18.3 CHRONIC KIDNEY DISEASE, STAGE 3 (MODERAT 09/21/2016 MARCIA, BOBAN N Ot Z79.899 OTHER FDC (CURRENT) DRUG THERAPY 04/10/2017 MARTY CANTU MD Ot C85.90 NON-[place] LYMPHOMA, UNSPECIFIED, UNSPE 04/10/2017 PEPE SMITH, MARTY Ot D80.1 NONFAMILIAL HYPOGAMMAGLOBULINEMIA 04/10/2017 PEPE SMITH, MARTY Ot M06.9 RHEUMATOID ARTHRITIS, UNSPECIFIED 04/10/2017 PEPE SMITH, MARTY Ot N18.3 CHRONIC KIDNEY DISEASE, STAGE 3 (MODERAT 04/10/2017 PEPE SMITH, MARTY Ot Z79.899 OTHER FDC (CURRENT) DRUG THERAPY 05/03/2017 MARCIA, BOBAN N Ot C85.90 NON-[place] LYMPHOMA, UNSPECIFIED, UNSPE 05/03/2017 MARCIA, BOBAN N Ot D80.1 NONFAMILIAL HYPOGAMMAGLOBULINEMIA 05/03/2017 MARCIA, BOBAN N Ot M06.9 RHEUMATOID ARTHRITIS, UNSPECIFIED 05/03/2017 MARCIA, BOBAN N Ot N18.3 CHRONIC KIDNEY DISEASE, STAGE 3 (MODERAT 05/03/2017 MARCIA, BOBAN N Ot Z79.899 OTHER FDC (CURRENT) DRUG THERAPY 05/04/2017 MARCIA, BOBAN N Ot C85.90 NON-[place] LYMPHOMA, UNSPECIFIED, UNSPE 05/04/2017 MARCIA, BOBAN N Ot D80.1 NONFAMILIAL HYPOGAMMAGLOBULINEMIA 05/04/2017 MARCIA, BOBAN N Ot M06.9 RHEUMATOID ARTHRITIS, UNSPECIFIED 05/04/2017 MARCIA, BOBAN N Ot N18.3 CHRONIC KIDNEY DISEASE, STAGE 3 (MODERAT 05/04/2017 MARCIA, BOBAN N Ot Z79.899 OTHER FDC (CURRENT) DRUG THERAPY 05/09/2017 MARCIA, BOBAN N Ot C85.90 NON-[place] LYMPHOMA, UNSPECIFIED, UNSPE 05/09/2017 MARCIA, BOBAN N Ot D80.1 NONFAMILIAL HYPOGAMMAGLOBULINEMIA 05/09/2017 MARCIA, BOBAN N Ot M06.9 RHEUMATOID ARTHRITIS, UNSPECIFIED 05/09/2017 MARCIA, BOBAN N Ot N18.3 CHRONIC KIDNEY DISEASE, STAGE 3 (MODERAT 05/09/2017 MARCIA, BOBAN N Ot Z79.899 OTHER GARMENT LINER (CURRENT) DRUG THERAPY 05/11/2017 MARTY CANTU MD, Ot C85.90 NON-[place] LYMPHOMA, UNSPECIFIED, UNSPE 05/11/2017 PEPE MD, FERGUSON Ot D80.1 NONFAMILIAL HYPOGAMMAGLOBULINEMIA 05/11/2017 MARTY CANTU MD Ot M06.9 RHEUMATOID ARTHRITIS, UNSPECIFIED 05/11/2017 MARTY CANTU MD Ot N18.3 CHRONIC KIDNEY DISEASE, STAGE 3 (MODERAT 05/11/2017 MARTY CANTU MD Ot Z79.899 OTHER FDC (CURRENT) DRUG THERAPY 05/23/2017 MARTY CANTU MD Ot C85.90 NON-[place] LYMPHOMA, UNSPECIFIED, UNSPE 05/23/2017 MARTY CANTU MD Ot D80.1 NONFAMILIAL HYPOGAMMAGLOBULINEMIA 05/23/2017 MARTY CANTU MD Ot M06.9 RHEUMATOID ARTHRITIS, UNSPECIFIED 05/23/2017 MARTY CANTU MD Ot N18.3 CHRONIC KIDNEY DISEASE, STAGE 3 (MODERAT 05/23/2017 PEPE SMITH, MARTY Ot Z79.899 OTHER GARMENT LINER (CURRENT) DRUG THERAPY 05/30/2017 MARCIA, BOBAN N Ot C85.90 NON-[place] LYMPHOMA, UNSPECIFIED, UNSPE 05/30/2017 MARCIA, BOBAN N Ot D80.1 NONFAMILIAL HYPOGAMMAGLOBULINEMIA 05/30/2017 MARCIA, BOBAN N Ot M06.9 RHEUMATOID ARTHRITIS, UNSPECIFIED 05/30/2017 MARCIA, BOBAN N Ot N18.3 CHRONIC KIDNEY DISEASE, STAGE 3 (MODERAT 05/30/2017 MARCIA, BOBAN N Ot Z79.899 OTHER GARMENT LINER (CURRENT) DRUG THERAPY 05/30/2017 MARCIA, BOBAN N Ot C85.90 NON-[place] LYMPHOMA, UNSPECIFIED, UNSPE 05/30/2017 MARCIA, BOBAN N Ot D80.1 NONFAMILIAL HYPOGAMMAGLOBULINEMIA 05/30/2017 MARCIA, BOBAN N Ot M06.9 RHEUMATOID ARTHRITIS, UNSPECIFIED 05/30/2017 MARCIA, BOBAN N Ot N18.3 CHRONIC KIDNEY DISEASE, STAGE 3 (MODERAT 05/30/2017 MARCIA, BOBAN N Ot Z79.899 OTHER GARMENT LINER (CURRENT) DRUG THERAPY 06/02/2017 MARTY CANTU MD Ot C85.90 NON-[place] LYMPHOMA, UNSPECIFIED, UNSPE 06/02/2017 MARTY CANTU MD Ot D80.1 NONFAMILIAL HYPOGAMMAGLOBULINEMIA 06/02/2017 MARTY CANTU MD Ot M06.9 RHEUMATOID ARTHRITIS, UNSPECIFIED 06/02/2017 MARTY CANTU MD Ot N18.3 CHRONIC KIDNEY DISEASE, STAGE 3 (MODERAT 06/02/2017 MARTY CANTU MD Ot Z79.899 OTHER FDC (CURRENT) DRUG THERAPY 07/06/2017 MARTY CANTU MD Ot C85.90 NON-[place] LYMPHOMA, UNSPECIFIED, UNSPE 07/06/2017 MARTY CANTU MD Ot D80.1 NONFAMILIAL HYPOGAMMAGLOBULINEMIA 07/06/2017 MARTY CANTU MD Ot M06.9 RHEUMATOID ARTHRITIS, UNSPECIFIED 07/06/2017 MARTY CANTU MD Ot N18.3 CHRONIC KIDNEY DISEASE, STAGE 3 (MODERAT 07/06/2017 MARTY CANTU MD Ot Z79.899 OTHER GARMENT LINER (CURRENT) DRUG THERAPY 07/10/2017 MARTY CANTU MD Ot C85.90 NON-[place] LYMPHOMA, UNSPECIFIED, UNSPE 07/10/2017 MARTY CANTU MD Ot D80.1 NONFAMILIAL HYPOGAMMAGLOBULINEMIA 07/10/2017 MARTY CANTU MD Ot M06.9 RHEUMATOID ARTHRITIS, UNSPECIFIED 07/10/2017 MARTY CANTU MD Ot N18.3 CHRONIC KIDNEY DISEASE, STAGE 3 (MODERAT 07/10/2017 PEPE SMITH, MARTY Ot Z79.899 OTHER FDC (CURRENT) DRUG THERAPY 08/23/2017 SEBAS KENNEDY N Ot C85.90 NON-[place] LYMPHOMA, UNSPECIFIED, UNSPE 08/23/2017 SEBAS KENNEDY N Ot D80.1 NONFAMILIAL HYPOGAMMAGLOBULINEMIA 08/23/2017 SEBAS KENNEDY N Ot M06.9 RHEUMATOID ARTHRITIS, UNSPECIFIED 08/23/2017 SEBAS KENNEDY N Ot N18.3 CHRONIC KIDNEY DISEASE, STAGE 3 (MODERAT 08/23/2017 SEBAS KENNEDY N Ot Z79.899 OTHER GARMENT LINER (CURRENT) DRUG THERAPY 08/23/2017 MARTY CANTU MD Ot C85.90 NON-[place] LYMPHOMA, UNSPECIFIED, UNSPE 08/23/2017 MARTY CANTU MD Ot D80.1 NONFAMILIAL HYPOGAMMAGLOBULINEMIA 08/23/2017 MARTY CANTU MD Ot M06.9 RHEUMATOID ARTHRITIS, UNSPECIFIED 08/23/2017 MARTY CANTU MD Ot N18.3 CHRONIC KIDNEY DISEASE, STAGE 3 (MODERAT 08/23/2017 MARTY CANTU MD Ot Z79.899 OTHER FDC (CURRENT) DRUG THERAPY 08/25/2017 MARTY CANTU MD Ot C85.90 NON-[place] LYMPHOMA, UNSPECIFIED, UNSPE 08/25/2017 EVE CANTU MDNER Ot D80.1 NONFAMILIAL HYPOGAMMAGLOBULINEMIA 08/25/2017 MARTY CANTU MD Ot M06.9 RHEUMATOID ARTHRITIS, UNSPECIFIED 08/25/2017 EVE CANTU MDNER Ot N18.3 CHRONIC KIDNEY DISEASE, STAGE 3 (MODERAT 08/25/2017 MARTY CANTU MD Ot Z79.899 OTHER GARMENT LINER (CURRENT) DRUG THERAPY 09/20/2017 MARTY CANTU MD Ot C85.90 NON-[place] LYMPHOMA, UNSPECIFIED, UNSPE 09/20/2017 MARTY CANTU MD Ot D80.1 NONFAMILIAL HYPOGAMMAGLOBULINEMIA 09/20/2017 MARTY CANTU MD Ot M06.9 RHEUMATOID ARTHRITIS, UNSPECIFIED 09/20/2017 MARTY CANTU MD Ot N18.3 CHRONIC KIDNEY DISEASE, STAGE 3 (MODERAT 09/20/2017 MARTY CANTU MD Ot Z79.899 OTHER FDC (CURRENT) DRUG THERAPY 09/20/2017 MARTY CANTU MD Ot C85.90 NON-[place] LYMPHOMA, UNSPECIFIED, UNSPE 09/20/2017 MARTY CANTU MD Ot D80.1 NONFAMILIAL HYPOGAMMAGLOBULINEMIA 09/20/2017 MARTY CANTU MD Ot M06.9 RHEUMATOID ARTHRITIS, UNSPECIFIED 09/20/2017 MARTY CANTU MD Ot N18.3 CHRONIC KIDNEY DISEASE, STAGE 3 (MODERAT 09/20/2017 MARTY CANTU MD Ot Z79.899 OTHER GARMENT LINER (CURRENT) DRUG THERAPY Procedures Code Description Performed By Performed On 81.54 08/08/2012 00.40 12/03/2013 00.66 12/03/2013 88.49 12/03/2013 88.56 12/03/2013 Results Test Result Range Complete blood count (CBC) with automated white blood cell (WBC) differential - 09/28/17 10:18 Blood leukocytes automated count (number/volume) 11.0 10*3/uL 4.3-11.0 Blood erythrocytes automated count (number/volume) 4.35 10*6/uL 4.35-5.85 Venous blood hemoglobin measurement (mass/volume) 13.8 g/dL 11.5-16.0 Blood hematocrit (volume fraction) 39 % 35-52 Automated erythrocyte mean corpuscular volume 90 [foz_us] 80-99 Automated erythrocyte mean corpuscular hemoglobin (mass per erythrocyte) 32 pg 25-34 Automated erythrocyte mean corpuscular hemoglobin concentration measurement ( mass/volume) 35 g/dL 32-36 Automated erythrocyte distribution width ratio 14.9 % 10.0-14.5 Automated blood platelet count (count/volume) 356 10*3/uL 130-400 Automated blood platelet mean volume measurement 10.3 [foz_us] 7.4-10.4 Automated blood neutrophils/100 leukocytes 52 % 42-75 Automated blood lymphocytes/100 leukocytes 36 % 12-44 Blood monocytes/100 leukocytes 8 % 0-12 Automated blood eosinophils/100 leukocytes 3 % 0-10 Automated blood basophils/100 leukocytes 2 % 0-10 Blood neutrophils automated count (number/volume) 5.7 10*3 1.8-7.8 Blood lymphocytes automated count (number/volume) 3.9 10*3 1.0-4.0 Blood monocytes automated count (number/volume) 0.8 10*3 0.0-1.0 Automated eosinophil count 0.3 10*3/uL 0.0-0.3 Automated blood basophil count (count/volume) 0.2 10*3/uL 0.0-0.1 Blood blood smear finding identification by light microscopy [facility] PT panel in platelet poor plasma by coagulation assay - 09/28/17 10:18 Prothrombin time (PT) in platelet poor plasma by coagulation assay 11.9 s 12.2-14.7 INR in platelet poor plasma or blood by coagulation assay 0.9 0.8-1.4 Activated partial thromboplastin time (aPTT) in platelet poor plasma bycoagulation assay - 09/28/17 10:18 Activated partial thromboplastin time (aPTT) in platelet poor plasma bycoagulation assay 29 s 24-35 Comprehensive metabolic panel - 09/28/17 10:18 Serum or plasma sodium measurement (moles/volume) 142 mmol/L 135-145 Serum or plasma potassium measurement (moles/volume) 3.1 mmol/L 3.6-5.0 Serum or plasma chloride measurement (moles/volume) 106 mmol/L 98-107 Carbon dioxide 25 mmol/L 21-32 Serum or plasma anion gap determination (moles/volume) 11 mmol/L 5-14 Serum or plasma urea nitrogen measurement (mass/volume) 17 mg/dL 7-18 Serum or plasma creatinine measurement (mass/volume) 0.98 mg/dL 0.60-1.30 Serum or plasma urea nitrogen/creatinine mass ratio 17 NRG Serum or plasma creatinine measurement with calculation of estimated glomerular filtration rate 56 NRG Serum or plasma glucose measurement (mass/volume) 95 mg/dL 70-105 Serum or plasma calcium measurement (mass/volume) 10.0 mg/dL 8.5-10.1 Serum or plasma total bilirubin measurement (mass/volume) 0.9 mg/dL 0.1-1.0 Serum or plasma alkaline phosphatase measurement (enzymatic activity/volume) 74 U/L 40-136 Serum or plasma aspartate aminotransferase measurement (enzymatic activity/ volume) 56 U/L 5-34 Serum or plasma alanine aminotransferase measurement (enzymatic activity/volume ) 26 U/L 0-55 Serum or plasma protein measurement (mass/volume) 7.2 g/dL 6.4-8.2 Serum or plasma albumin measurement (mass/volume) 4.7 g/dL 3.2-4.5 Magnesium - 09/28/17 10:18 Magnesium 2.3 mg/dL 1.8-2.4 Serum or plasma troponin i.cardiac measurement (mass/volume) - 09/28/17 10:18 Serum or plasma troponin i.cardiac measurement (mass/volume) < ng/ mL <0.30 Myoglobin, serum - 09/28/17 10:18 Myoglobin, serum 247.8 ng/mL 10.0-92.0 Encounters ACCT No. Visit Date/Time Discharge Status Pt. Type Provider Facility Loc./Unit Complaint [id number] 03/25/2014 12:16:10 03/25/2014 23:59:59 CLS Outpatient Scottie Reynolds [facility] 01/30/2015 10:16:44 ACT Document Registration [id number] 08/24/2017 08:03:00 08/24/2017 23:59:59 CLS Outpatient MARTY CANTU MD [facility] ONC [id number] 07/28/2017 09:20:00 08/23/2017 13:19:00 DIS Outpatient SEBAS KENNEDY [facility] ONC [id number] 06/30/2017 09:28:00 07/06/2017 00:01:00 DIS Outpatient MARTY CANTU MD [facility] ONC [id number] 09/22/2016 00:12:00 09/22/2016 23:59:59 CLS Preadmit SEBAS KENNEDY [facility] ONC OV [id number] 09/16/2016 10:30:00 09/21/2016 00:01:00 DIS Outpatient SEBAS KENNEDY [facility] ONC OV [id number] 06/10/2016 09:29:00 06/16/2016 00:01:00 DIS Outpatient SEBAS KENNEDY [facility] ONC OV [id number] 03/25/2016 09:36:00 03/25/2016 23:59:59 CLS Outpatient FLORA MALIK [facility] CARD CAD,HTN,HLP, CAROTID ARTERY STENOSIS [id number] 10/22/2015 13:24:00 01/07/2016 00:01:00 DIS Outpatient SEBAS KENNEDY [facility] ONC OV [id number] 08/12/2015 10:28:00 10/08/2015 00:01:00 DIS Outpatient SEBAS KENNEDY [facility] ONC OV [id number] 06/05/2015 09:44:00 06/11/2015 00:01:00 DIS Outpatient SEBAS KENNEDY [facility] ONC OV [id number] 05/20/2015 13:35:00 05/20/2015 23:59:59 CLS Outpatient ALON SHELBY MD [facility] RAD RT BREAST PAIN NODULAR AREA RT BREAST [id number] 04/10/2015 10:00:00 04/10/2015 23:59:59 CLS Outpatient ZIA HENDERSON MD [facility] LAB [id number] 04/10/2015 09:57:00 04/10/2015 23:59:59 CLS Outpatient GEO PASCAL [facility] ONC [id number] 01/30/2015 10:16:00 02/25/2015 00:01:00 DIS Outpatient MARCIA SEBAS Castillo [facility] ONC OV [id number] 01/02/2015 09:45:00 01/08/2015 00:01:00 DIS Outpatient SEBAS KENNEDY Jonathan [facility] ONC OV [id number] 01/02/2015 10:15:00 01/02/2015 23:59:59 CLS Outpatient ZIA HENDERSON MD [facility] LAB HYPERLIPIDEMIA, CAD, HTN [id number] 11/19/2014 07:51:00 11/19/2014 23:59:59 CLS Outpatient ZIA HENDERSON MD [facility] CARD CAD,REYNA,HTN,HLP [id number] 11/07/2014 09:53:00 11/07/2014 23:59:59 CLS Outpatient GEO PASCAL HEEL LINING PASTER [facility] ONC [id number] 11/03/2014 12:02:00 11/03/2014 23:59:59 CLS Outpatient ALON SHELBY MD [facility] RAD PNEUMONIA,COUGH [id number] 10/10/2014 12:23:00 10/10/2014 23:59:59 CLS Outpatient ZIA HENDERSON MD [facility] LAB [id number] 09/29/2014 10:39:00 09/29/2014 23:59:59 CLS Outpatient ALON SHELBY MD [facility] RAD CHRONIC COUGH [id number] 08/29/2014 07:09:00 08/29/2014 08:00:00 DIS Emergency HAM SMITH, LUCY Huff [facility] ER FALL/RIGHT ARM LAC [id number] 04/04/2014 11:49:00 06/26/2014 00:01:00 DIS Outpatient MARCIASEBAS Jonathan [facility] ONC OV [id number] 06/20/2014 10:08:00 06/20/2014 23:59:59 CLS Outpatient ALON SHELBY MD [facility] RAD SCREENING [id number] 04/04/2014 09:48:00 04/04/2014 23:59:59 CLS Outpatient GEO PASCAL HEEL LINING PASTER [facility] ONC [id number] 01/08/2014 11:21:00 01/20/2014 12:21:00 DIS Outpatient ZIA HENDERSON MD [facility] CR STABLE ANGINA, AMI, CABGX3 [id number] 12/03/2013 13:00:00 12/06/2013 09:30:00 DIS Inpatient ZIA HENDERSON MD [facility] CSD CHEST PAIN [id number] 11/04/2013 22:00:00 11/04/2013 23:59:59 CLS Outpatient ZIA HENDERSON MD [facility] CATH CHEST PAIN [id number] 09/12/2013 11:25:00 10/10/2013 00:01:00 DIS Outpatient SEBAS KENNEDY [facility] ONC OV [id number] 08/09/2013 10:10:00 08/09/2013 23:59:59 CLS Outpatient GEO PASCAL HEEL LINING PASTER [facility] ONC [id number] 07/09/2013 13:57:00 07/11/2013 00:01:00 DIS Outpatient SEBAS KENNEDY [facility] ONC OV [id number] 06/19/2013 12:53:00 06/19/2013 23:59:59 CLS Outpatient KEL CHAVEZ V APRON WORKER [facility] LAB [id number] 06/14/2013 10:08:00 06/14/2013 23:59:59 CLS Outpatient GEO PASCAL [employer] [facility] ONC [id number] 04/12/2013 10:00:00 04/12/2013 23:59:59 CLS Outpatient GEO PASCAL S HEEL LINING PASTER [facility] ONC [id number] 12/21/2012 09:20:00 03/07/2013 00:01:00 DIS Outpatient SEBAS KENNEDY [facility] ONC OV [id number] 02/15/2013 09:41:00 02/15/2013 23:59:59 CLS Outpatient ITALO ALVAREZ MD [facility] RAD HEMATURIA,RECURRING UTI [id number] 09/28/2017 12:13:00 ACT Outpatient ZIA HENDERSON MD [facility] [id number] 04/06/2016 14:22:00 Document Registration [id number] 05/20/2015 13:32:00 Document Registration [id number] 08/08/2012 06:04:00 Document Registration [id number] 08/03/2012 10:18:00 Document Registration [id number] 07/27/2012 10:36:00 Document Registration [id number] 06/29/2012 10:33:00 Document Registration [id number] 02/06/2012 13:47:00 Document Registration [id number] 01/16/2012 09:16:00 Document Registration [id number] 11/18/2011 10:09:00 Document Registration [id number] 11/10/2011 14:21:00 Document Registration [id number] 11/10/2011 07:26:00 Document Registration [id number] 11/04/2011 10:32:00 Document Registration [id number] 09/23/2011 08:04:00 Document Registration [id number] 08/05/2011 10:35:00 Document Registration [id number] 05/25/2011 16:12:00 Document Registration [id number] 03/25/2011 08:10:00 Document Registration [id number] 01/17/2011 13:25:00 Document Registration [id number] 01/17/2011 09:35:00 Document Registration [id number] 09/29/2010 05:47:00 Document Registration [id number] 09/24/2010 10:17:00 Document Registration [id number] 09/13/2010 12:02:00 Document Registration [id number] 07/16/2010 10:38:00 Document Registration [id number] 06/11/2010 10:28:00 Document Registration [id number] 03/12/2010 12:41:00 Document Registration
[2017-09-28] MEDS ORDERED: HEParin 1000 UNIT/ML (10ML VIAL) FOR BOLUS ONE (12:36)
[2017-09-28] MEDS ORDERED: MIDAZOLAM 5 MG/5 ML (VERSED) VIAL ONE (12:36)
[2017-09-28] MEDS ORDERED: fentaNYL INJECTION 100 MCG/2 ML AMP ONE (12:36)
[2017-09-28] MEDS ORDERED: LIDOCAINE 1% INJ 20 ML 20 ML VIAL ONE (12:36)
[2017-09-28] MEDS ORDERED: NS IV 1000 ML 3,000 ML ONE (12:36)
[2017-09-28] MEDS ORDERED: NS IV 1000 ML 1,000 ML ONE (12:56)
[2017-09-28] MEDS ORDERED: methylPREDNISolone 125 MG (Solu-MEDROL) VIAL ONE (13:06)
[2017-09-28] MEDS ORDERED: diphenhydrAMINE 50 MG/ML INJ (BENADRYL) ONE (13:06)
[2017-09-28] MEDS ORDERED: NS IV 1000 ML 1,000 ML IV SCH (14:01)
[2017-09-28] MEDS ORDERED: TICAGRELOR 90 MG TABLET (BRILINTA) PO ONE (14:07)
[2017-09-28] MEDS ORDERED: PATIENT MAY USE OWN MEDS, ALL PO SCH (14:15)
--- NOTE | 2017-09-28 14:23 | Cardiac Cath Report ---
Cardiac Cath Report Physician (s)/Rv Service Technician (s) Physician ZIA HENDERSON MD Pre-Procedure Diagnosis Pre-Procedure Diagnosis: CAD, CP Post-Procedure Note Procedure Start Date: September 28, 2017 Name of Procedure: Left heart catheterization Vein graft angiogram KAPLAN angiogram Left ventriculogram Findings/Procedure Note PROCEDURE NOTE: After explaining the procedure to the patient, all pros and cons were explained , all questions were answered. The patient signed the consent and then she was placed on the cardiac catheterization laboratory. Groin was prepped SL fashion local anesthesia was used. Sheath placed in the right femoral artery. Nicole right and left catheter were used to access the coronary system.Vein Graft evaluated. KAPLAN evaluated. Pigtail was used to access the left ventricular cavity. Left ventriculogram was done At the end of the procedure the sheath was removed. Closure device was used FINDINGS: Hemodynamics LV 126/21 and diastolic pressure of 21 Aorta 129/69 mean of 96 ANATOMY: Left Main is free of obstructive disease Left Anterior Descending has severe disease with patent KAPLAN to the LAD Left Circumflex has severe disease proximally with patent vein graft to the first dose marginal branch, severe disease at the vein graft to the second obtuse marginal branch Right Coronory Artery is dominant artery with severe disease at the mid posterolateral branch that is small artery KAPLAN to the LAD is tortuous and patent Vein Graft evaluation showed The lower vein graft is the vein graft to the first obtuse marginal branch that is patent with good flow distally The upper vein graft is the vein graft to the second obtuse marginal branch that previously had thrombosis in 2014, that area appeared patent. The proximal portion of the vein graft has severe stenosis at the ostium, there are dual supply to that area from the vein graft and the diseased posterolateral branch of the right coronary artery that is giving collaterals to that area LV Gram was done in the right anterior oblique position left ventricle is normal in size estimated ejection fraction 50 percent CONCLUSION: 1. Severe stenosis at the proximal vein graft to the second obtuse marginal branch with slow flow through followed that vein graft distally, that area is receiving dual supply through the vein graft and second obtuse marginal branch and through the posterolateral branch of the right coronary artery that has severe disease at its midportion 2. Severe disease at the mid posterolateral branch that is less than 2 mm in diameter 3. Patent vein graft to the first obtuse marginal branch and patent KAPLAN to the LAD 4. Normal left ventricular size with preserved contractility estimated ejection fraction 50 percent DISCUSSION AND RECOMMENDATION: Medical therapy is recommended unless the patient developed elevated troponin level indicating significant disease, at that point I'll consider high risk intervention to the posterolateral branch on the ostium of the vein graft Anesthesia Type: Conscious Sedation Estimated blood loss (mL): 10 ml Contrast Amount: 96 ml Total Radiation Dose: 811 mGy Post-Procedure Diagnosis Post-operative diagnosis: Unstable angina Coronary artery disease Hypertension Hyperlipidemia ZIA HENDERSON MD September 28, 2017 14:23
[2017-09-28] MEDS ORDERED: LIRA0.6P3 SC (15:06)
[2017-09-28] MEDS ORDERED: CITA10TA7 PO (15:06)
[2017-09-28] MEDS ORDERED: LOSA50TA36 PO (15:06)
[2017-09-28] MEDS ORDERED: METO-370 PO (15:06)
[2017-09-28] MEDS ORDERED: NITR1OIN (15:06)
[2017-09-28] MEDS ORDERED: LEVO88TA54 PO (15:06)
[2017-09-28] MEDS ORDERED: ATOR40TA70 PO (15:06)
[2017-09-28] MEDS ORDERED: AMLO5TAB2 PO (15:06)
[2017-09-28] MEDS ORDERED: FENO67CA PO (15:06)
[2017-09-28] MEDS ORDERED: CHOL20003 PO (15:13)
[2017-09-28] MEDS ORDERED: LORA10TA76 PO (15:13)
[2017-09-28] MEDS ORDERED: ASPI-983 PO (15:13)
[2017-09-28] MEDS ORDERED: FISH1CAP15 PO (15:13)
[2017-09-28] MEDS ORDERED: KCL 20 MEQ TAB (K-DUR) PO NR (16:38)
[2017-09-28] MEDS: POTASSIUM CL 10MEQ/50ML IVPB 50 ML IV SCH ×2 (16:44→17:57)
[2017-09-28] MEDS ORDERED: ATOR80TA76 PO (16:45)
[2017-09-28] MEDS ORDERED: TICA90TA PO (16:45)
[2017-09-28] MEDS ORDERED: OMEGA 3 (FISH OIL) 1000 MG CAP PO SCH (17:00)
[2017-09-28] MEDS ORDERED: ATORVASTATIN 80 MG (LIPITOR) TABLET PO SCH (21:00)
[2017-09-28] MEDS ORDERED: FENOFIBRATE, MICRO 67 MG (LOFIBRA) CAPSULE PO SCH (21:00)
[2017-09-28] MEDS ORDERED: TICAGRELOR 90 MG TABLET (BRILINTA) PO SCH (21:00)
[2017-09-29] MEDS ORDERED: LEVOTHYROXINE 88 MCG (LEVOTHORID) TAB PO SCH (06:30)
[2017-09-29] MEDS ORDERED: meTOproloL SUCCINATE 50 MG (TOPROL XL) TAB PO SCH (09:00)
[2017-09-29] MEDS ORDERED: ASPIRIN E.C. 81 MG (ECOTRIN) TAB PO SCH (09:00)
[2017-09-29] MEDS ORDERED: LOSARTAN 50 MG (COZAAR) TAB PO SCH (09:00)
== END 2017-09-28 21:12 | disposition short-term general hospital (02) ==
LOC: EDUNIT# 10:09 → ER 10:10 → CATH 12:13 → ICU 14:15 → CATH 21:12
PROVIDERS: ATTEND Internal Medicine Cardiovascular Disease
DX: I25.710 Atherosclerosis of autologous vein coronary artery bypass graft(s) with unstable angina pectoris (principal); I12.9 Hypertensive chronic kidney disease with stage 1 through stage 4 chronic kidney disease, or unspecified chronic kidney disease; N18.9 Chronic kidney disease, unspecified; E78.5 Hyperlipidemia, unspecified; E03.9 Hypothyroidism, unspecified; I65.23 Occlusion and stenosis of bilateral carotid arteries; Z85.72 Personal history of non-Hodgkin lymphomas; Z85.828 Personal history of other malignant neoplasm of skin; Z79.82 Long term (current) use of aspirin; Z79.899 Other long term (current) drug therapy; Z95.1 Presence of aortocoronary bypass graft; Z92.21 Personal history of antineoplastic chemotherapy
CPT/HCPCS: 36415; 71045; 80053; 83735; 83874; 84484; 85025; 85610; 85730; 93005; 93041; 93459; 96360

== ENCOUNTER 2018-05-17 23:18 | Inpatient (IN) | payer MEDICARE ==
[~2018-05-17] VITALS: Ht 162.6 cm; Wt 60.4 kg
[~2018-05-17 23:18] MED LIST changes: +AMLO5TAB7 PO; +ASPI-983 PO; +ATOR40TA70 PO; +ATOR80TA76 PO; +CHOL20003 PO; +CITA10TA7 PO; +FENO67CA PO; +FISH1CAP15 PO; +LEVO88TA54 PO; +LIRA0.6P3 SC; +LORA10TA76 PO; +LOSA50TA7 PO; +METO-370 PO; +NITR1OIN; +TICA90TA PO
[2018-05-17] MEDS ORDERED: NS IV 1000 ML 1,000 ML IV ONE (23:33)
[2018-05-17] MEDS ORDERED: morphine INJ 10 MG/ML 1ML (SYR OR VIAL) IVP STA (23:33)
[2018-05-17] MEDS ORDERED: morphine INJ 10 MG/ML 1ML (SYR OR VIAL) ONE (23:34)
[2018-05-17] MEDS ORDERED: NS IV 1000 ML 1,000 ML ONE (23:34)
[2018-05-17 23:35] LABS: BASOPHILS # (AUTO) 0.1 10^3/uL (0.0-0.1); BASOPHILS % (AUTO) 1 % (0-10); EOSINOPHILS # (AUTO) 0.1 10^3/uL (0.0-0.3); EOSINOPHILS % (AUTO) 1 % (0-10); HEMATOCRIT 43 % (35-52); HEMOGLOBIN 15.8 G/DL (11.5-16.0); LYMPHOCYTES # (AUTO) 3.4 X 10^3 (1.0-4.0); LYMPHOCYTES % (AUTO) 39 % (12-44); MEAN CORPUSCULAR HEMOGLOBIN 31 PG (25-34); MEAN CORPUSCULAR HGB CONC 37 G/DL (32-36); MEAN CORPUSCULAR VOLUME 84 FL (80-99); MEAN PLATELET VOLUME 10.3 FL (7.4-10.4); MONOCYTES # (AUTO) 1.3 X 10^3 (0.0-1.0); MONOCYTES % (AUTO) 14 % (0-12); NEUTROPHILS # (AUTO) 4.1 X 10^3 (1.8-7.8); NEUTROPHILS % (AUTO) 46 % (42-75); PLATELET COUNT 410 10^3/uL (130-400); RED BLOOD COUNT 5.07 10^6/uL (4.35-5.85); RED CELL DISTRIBUTION WIDTH 14.3 % (10.0-14.5); WHITE BLOOD COUNT 8.9 10^3/uL (4.3-11.0)
[2018-05-17] MEDS ORDERED: HEParin 1000 UNIT/ML (10ML VIAL) FOR BOLUS IV ONE (23:42)
[2018-05-17] MEDS ORDERED: ONDANSETRON 4 MG/2 ML (SDV) Z0FRAN ONE (23:43)
[2018-05-17] MEDS ORDERED: CLOPIDOGREL 300 MG (PLAVIX) TABLET PO ONE (23:45)
[2018-05-17] MEDS ORDERED: ASPIRIN 81 MG CHEW (CHILDREN'S ASA) PO ONE (23:45)
--- NOTE | 2018-05-17 23:50 | Cardiac Procedure Note-CS/ASA ---
Pre-Procedure Note Pre-Op Procedure Note H&P Reviewed The H&P was reviewed, patient examined and no changes noted. Date H&P Reviewed: May 17, 2018 Time H&P Reviewed: 23:50 Conscious Sedation Pre-Proced Time 23:50 ASA Score 3 For ASA 3 and 4: Consider anesthesia and medical clearance. Also, for patients with a history of failed moderate sedation consider anesthesia. Airway Lungs Heart ASA score ASA 1: a normal healthy patient ASA 2: a patient with a mild systemic disease (mid diabetes, controlled hypertension, obesity x ASA 3: a patient with a severe systemic disease that limits activity (angina , COPD, prior Myocardial infarction) ASA 4: a patient with an incapacitating disease that is a constant threat to life (CHF, renal failure) ASA 5: a moribund patient not expected to survive 24 hrs. (ruptured aneurysm) ASA 6: a declared brain patient whose organs are being harvested. For emergent operations, add the letter E after the classification Mallampati Classification Grade 3 Sedation Plan Analgesia, Amnesia, Plan communicated to team members, Discussed options with patient/fam, Discussed risks with patient/fam The patient is an appropriate candidate to undergo the planned procedure, sedation, and anesthesia. The patient immediately re-assessed prior to indication. ZIA HENDERSON MD May 17, 2018 23:50
--- NOTE | 2018-05-17 23:50 | Cardiology History & Physical ---
HPI-Cardiology Cardiology Consultation Date of Consultation 05/17/18 Date of Admission Time Seen by Provider: 23:48 Indication: acute myocardial infarction HPI 68 years old lady with history of coronary artery disease, started having sudden onset chest pain this evening when she went to bed. Came into the emergency room and noted to have ST elevation in inferior wall. She has been having nausea and vomiting for the past 3 days. Dehydrated. Having active pain with nausea and vomiting. No palpitation. No syncope or near syncopal episodes. PMH-Cardiology Immunizations Up To Date Tetanus Booster (DTap): Unknown Date of Pneumonia Vaccine: Aug 09, 2017 Seasonal Allergies Seasonal Allergies: No Surgeries Yes (SPLENECTOMY, FIORDALIZA,foot, bilat TKR, RUPTURED COLON REPAIRED SINUS SX,) Vascular Surgery Respiratory No Cardiovascular Yes (TRIPLE BYPASS 10/2013) Hypertension Neurological No Reproductive System Hx Reproductive Disorders: No (HYST) Menopausal Genitourinary No Gastrointestinal Yes (GB REMOVED, INCISIONAL HERNIA'S) Gall Bladder Disease Musculoskeletal Yes Osteoporosis, Arthritis Endocrine Yes (AUTO IMMUNE DEFINICY SEE DR VALDEZ) Hypothyroidsim HEENT No Cancer Yes ( nonhodgekins lymphoma) Skin Did You Recieve Any Treatments: Yes Type of Treatment: Chemotherapy, Surgical Intervention Psychosocial No Integumentary No Blood Transfusions No Adverse Rxn to Transfusion: No Social History Patient Social History Marrital Status: Employed/Student: employed Alcohol Use: Denies Use Recreational Drug Use: No Recent Foreign Travel: No Contact w/other who traveled: No Recent Infectious Disease Expo: No Family Hx Family History: Cardiovascular disease G8 BROTHER FH: COPD (chronic obstructive pulmonary disease) 19 MOTHER FH: multiple myeloma 19 FATHER, Onset:63 ROS-Cardiology Review of Systems General: No Chills, No Night Sweats, No Fatigue, No Malaise, No Appetite HEENT: No Head Aches, No Visual Changes, No Eye Pain, No Ear Pain, No Dysphasia , No Sinus Congestion, No Post Nasal Drip, No Sore Throat Pulmonary: No Dyspnea, No Cough, No Pleuritic Chest Pain Cardiovascular: Chest Pain; No: Palpitations, Orthopnea, Paroxysmal Noc. Dyspnea, Edema, Lt Headedness Gastrointestinal: Nausea, Vomiting; No: Abdominal Pain, Diarrhea, Constipation , Melena, Hematochezia Genitourinary: No Dysuria, No Frequency, No Incontinence, No Hematuria, No Retention Musculoskeletal: No: neck pain, shoulder pain, arm pain, back pain, hand pain, leg pain, foot pain Neurological: No: Weakness, Numbness, Incoordination, Change in speech, Confusion, Seizures Home Medications & Allergies Allergies: Coded Allergies: Iodinated Contrast- Oral and IV Dye (Verified Allergy, Intermediate, hives , 11/04/13) Sulfa (Sulfonamide Antibiotics) (Verified Allergy, Unknown, 10/21/08) ciprofloxacin (Verified Allergy, Unknown, 10/21/08) guaifenesin (Verified Allergy, Unknown, 10/21/08) hydroxychloroquine (Verified Allergy, Unknown, 10/21/08) iopamidol (Verified Allergy, Unknown, 10/21/08) nitrofurantoin (Verified Allergy, Unknown, 10/21/08) Home Medication List Reviewed: Yes Exam-Cardiology Vital Signs Vital Signs Date Time Temp Pulse Resp B/P (MAP) Pulse Ox O2 Delivery O2 Flow Rate FiO2 05/17/18 23:18 Nasal Cannula 2.0 05/17/18 23:18 98.1 67 16 94/70 (78) 100 Exam General Appearance: Alert, Oriented X3, Cooperative, No Acute Distress HEENT: Atraumatic, PERRLA Respiratory: Clear to Auscultation, Normal Air Movement Cardiovascular: Regular Rate, Normal S1, Normal S2, No Murmurs Abdominal: Normal Bowel Sounds, Soft, No Tenderness, No Hepatosplenomegaly, No Masses Extremities: No Clubbing, No Cyanosis, No Edema, Normal Pulses, No Tenderness/ Swelling Skin: No Rashes, No Breakdown, No Significant Lesion Neuro: Normal Gait, Normal Speech, Strength at 5/5 X4 Ext, Normal Tone, Sensation Intact Psych/Mental Status: Mental Status NL, Mood NL Results Labs Labs Laboratory Tests 05/17/18 23:25: White Blood Count 8.9, Red Blood Count 5.07, Hemoglobin 15.8, Hematocrit 43, Mean Corpuscular Volume 84, Mean Corpuscular Hemoglobin 31, Mean Corpuscular Hemoglobin Concent 37H, Red Cell Distribution Width 14.3, Platelet Count 410H, Mean Platelet Volume 10.3, Neutrophils (%) (Auto) 46, Lymphocytes (%) (Auto) 39 , Monocytes (%) (Auto) 14H, Eosinophils (%) (Auto) 1, Basophils (%) (Auto) 1, Neutrophils # (Auto) 4.1, Lymphocytes # (Auto) 3.4, Monocytes # (Auto) 1.3H, Eosinophils # (Auto) 0.1, Basophils # (Auto) 0.1, Sodium Level 135, Potassium Level 2.7L, Chloride Level 100, Carbon Dioxide Level 17L, Anion Gap 18H, Blood Urea Nitrogen 49H, Creatinine 2.16H, Estimat Glomerular Filtration Rate 23, BUN/ Creatinine Ratio 23, Glucose Level 118H, Calcium Level 10.1, Corrected Calcium , Magnesium Level 2.3, Total Bilirubin 0.5, Aspartate Amino Transf (AST/SGOT) 50H, Alanine Aminotransferase (ALT/SGPT) 26, Alkaline Phosphatase 61, Total Creatine Kinase 387H, Total Protein 7.3, Albumin 4.6H, Amylase Level 85, Lipase 59 A/P-Cardiology Admission Diagnosis Acute myocardial infarction Coronary artery disease Hypertension Hyperlipidemia Admission Status: Inpatient Order (span 2 midnights) Reason for Inpatient Admission: Acute myocardial infarction Assessment/Plan Acute myocardial infarction the inferior wall, planning to proceed with emergency cardiac catheterization next Coronary artery disease, history of CABG [address] valerio in October 2013, had an acute IN in November 2013 involving the inferior wall underwent emergency cardiac catheterization with thrombectomy of the vein graft to the circumflex artery then angioplasty with the 2.5 balloon. There is a patent vein graft to the first obtuse marginal branch, severe disease at the [place] proximal LAD with patent KAPLAN to LAD, mild to moderate disease in the right coronary artery, had another cardiac catheterization done in July 2017 after having abnormal stress test which showed patent vein graft to the first obtuse marginal branch and vein graft to the second obtuse marginal branch with severe disease distally and the ostium of the vein graft, that area is receiving dual supply through collaterals from the right coronary system Hypertension, currently borderline hypotension, receiving IV fluid Hyperlipidemia, maintained on Lipitor 40 mg daily Mild carotid stenosis, continue to monitor carotid artery Chronic renal insufficiency, monitor renal function History of non-Hodgkin's lymphoma, history of splenectomy and chemotherapy finished chemotherapy in 2002 as been in remission followed by Dr. Valdez History of basal cell carcinoma of the nose underwent reconstructive surgery, followed by Dr. Valdez Hypothyroidism, followed and managed by primary care physician History of hypogammaglobulinemia receiving Gammagrad monthly and followed by Dr. Valdez Clinical Quality Measures AMI/AHF: ASA po Prior to arrival: ZIA Sánchez MD May 17, 2018 23:49
[2018-05-17 23:53] LABS: ALANINE AMINOTRANSFERASE 26 U/L (0-55); ALBUMIN 4.6 GM/DL (3.2-4.5); ALKALINE PHOSPHATASE 61 U/L (40-136); AMYLASE 85 U/L (25-125); BILIRUBIN,TOTAL 0.5 MG/DL (0.1-1.0); BUN/CREATININE RATIO 23; CALCIUM 10.1 MG/DL (8.5-10.1); CARBON DIOXIDE 17 MMOL/L (21-32); CHLORIDE 100 MMOL/L (98-107); CREATINE KINASE 387 U/L (29-168); CREATININE SERUM 2.16 MG/DL (0.60-1.30); GFR ESTIMATED 23; GLUCOSE 118 MG/DL (70-105); LIPASE 59 U/L (8-78); MAGNESIUM 2.3 MG/DL (1.8-2.4); POTASSIUM 2.7 MMOL/L (3.6-5.0); SODIUM 135 MMOL/L (135-145); TOTAL PROTEIN 7.3 GM/DL (6.4-8.2)
--- OUTSIDE RECORDS SUMMARY | 2018-05-17 23:54 | XMS REPORT | Clinical Summary ---
Author Author [facility] Organization [facility] Address Unknown Phone Unavailable Care Team Providers [employer] Name Role Phone Ritika Hall MD Unavailable [...] in the Health Information Management department at [phone] for further assistance in locating additional records.[facility] Allergies Comments Active Allergy Reactions Severity Noted Date Ciprofloxacin 07/18/2008 Guaifenesin 07/18/2008 Nitrofurantoin UNKNOWN 07/18/2008 Macrocrystalline Hydroxychloroquine 07/18/2008 Lansoprazole 07/18/2008 Quinolones 07/18/2008 Sulfa (Sulfonamide 07/18/2008 Antibiotics) Medications End Date Status Medication Sig Dispensed Refills Start Date Active levothyroxine (SYNTHROID) Take 88 mcg 0 75 mcg PO tablet by mouth daily. Active CETIRIZINE HCL (ZYRTEC Take by 0 PO) mouth daily. Active citalopram (CELEXA) 10 mg Take 10 mg by 0 PO tablet mouth daily. Active Cholecalciferol (Vitamin Take 1 Cap by 0 D3) (VITAMIN D) 2,000 mouth. unit PO Cap Active [place]-3 Fatty Take 2 Caps 0 Acids-Vitamin E (FISH by mouth OIL) 1,000 mg PO Cap daily. Active Fenofibrate Micronized Take 130 mg 0 130 mg cap by mouth daily. Active atorvastatin (LIPITOR) 80 Take 80 mg by 0 mg tablet mouth daily. Active aspirin EC 81 mg tablet Take 81 mg by 0 mouth daily. Active PSEUDOEPHEDRINE HCL Take by 0 (SUDAFED 12 HOUR PO) mouth. Take this in the AM Active METOPROLOL TARTRATE PO Take by 0 mouth at bedtime daily. Active other medication 1 Dose. IBIG 0 tx monthly Active ticagrelor (BRILINTA PO) Take 40 mg by 0 mouth twice daily. Active Problems Problem Noted Date Closed [...] (current) use of high-risk medication 01/18/2011 Lymphoma 01/18/2011 RA (rheumatoid arthritis) Non Hodgkin's lymphoma Immunizations Name Dates Previously Given Next Due Flu Vaccine=>65 YO 08/01/2017 High-Dose (PF) Pneumococcal 08/01/2017 Vaccine(13-[facility]/immunocompromised adult) Family History Medical History Relation Name Comments Hearing Loss Mother Thyroid Disease Mother Relation Name Status Comments Brother Alive Brother Alive Father Mother Alive Social History Date Tobacco Use Types Packs/Day Years Used Quit: 05/29/1976 Former Smoker Cigarettes 0.5 9 Smokeless Tobacco: Never Used Tobacco Cessation: Counseling Given: No Alcohol Use Drinks/Week oz/Week Comments Yes 1-2 Standard 0.6 - 1.2 occasional drinks or equivalent Sex Assigned at Date Recorded Not on file Industry Job Start Date Occupation Not on file Not on file Not on file Travel End Travel History Travel Start No recent travel history available. Last Filed Vital Signs Time Taken Vital Sign Reading 10/24/2017 8:35 AM CDT Blood Pressure 129/78 10/24/2017 8:35 AM CDT Pulse 62 08/01/2017 8:44 AM TUNNELLER Temperature 36.4 C (97.6 F) 08/01/2017 8:44 AM TUNNELLER Respiratory Rate 19 01/22/2015 6:09 AM CDT Oxygen Saturation 98% - Inhaled Oxygen - Concentration 10/24/2017 8:35 AM CDT Weight 59.9 kg (132 lb) 10/24/2017 8:35 AM CDT Height 162.6 cm (5' 4") 10/24/2017 8:35 AM CDT Body Mass Index 22.66 Plan of Treatment Health Maintenance Due Date Last Done Comments HEPATITIS C SCREENING 1948 PHYSICAL (COMPREHENSIVE) 1955 EXAM DTAP/TDAP VACCINES (1 - 1966 Tdap) SHINGLES RECOMBINANT 1998 VACCINE (1 of 2) BREAST CANCER SCREENING 07/21/2010 07/21/2009 OSTEOPOROSIS 2013 SCREENING/MONITORING INFLUENZA VACCINE 12/27/2017 08/01/2017, 04/28/2009 PNEUMONIA (PCV13/PPSV23) 08/01/2018 08/01/2017 VACCINES (2 of 2 - PPSV23) COLORECTAL CANCER 07/21/2019 07/21/2009 SCREENING Results Not on filefrom Last 3 Months Insurance Payer Benefit Subscriber ID Type Phone Address Plan / Group MEDICARE MEDICARE xxxxxxxxxx Medicare PART A AND B BCBS CARIDAD BCBS xxxxxxxxxxxx Medicare SUPPLEMENT Advance Directives Patient has advance care planning documents, and code status on file. For more information, please contact: [facility] [address] [place] [address] Date Inactivated Comments Code Status Date Activated 01/22/2015 11:48 AM Full Code 01/21/2015 8:32 PM Provider has discussed Code Status No, discussion not w/Patient or Family? necessary based on Dx
--- OUTSIDE RECORDS SUMMARY | 2018-05-17 23:58 | XMS REPORT | Continuity of Care Document ---
Author Author [facility] Organization [facility] Address Unknown Phone Unavailable Allergies Active Description Code Type Severity Reaction Onset Reported/Identified Relationship to Patient Clinical Status Yes ciprofloxacin [id number] Drug Allergy Unknown N/A 10/21/2008 Yes guaifenesin [id number] Drug Allergy Unknown N/A 10/21/2008 Yes hydroxychloroquine [id number] Drug Allergy Unknown N/A 10/21/2008 Yes iopamidol [id number] Drug Allergy Unknown N/A 10/21/2008 Yes nitrofurantoin [id number] Drug Allergy Unknown N/A 10/21/2008 Yes Sulfa (Sulfonamide Antibiotics) [id number] Drug Allergy Unknown N/A 2008 Yes Iodinated Contrast Media - IV Dye [id number] Drug Allergy Moderate hives Yes Iodinated Contrast Media - Oral and [id number] Drug Allergy Moderate hives 11/04/2013 Yes Iodinated Contrast- Oral and IV Dye [id number] Drug Allergy Moderate hives 11/04/2013 Medications There is no data. 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 03/14/2010 Ot 279.00 06/17/2010 [...] HENDERSON MD Ot 414.01 CORONARY ATHEROSCLEROSIS OF [place] CORON 12/06/2013 ZIA HENDERSON MD Ot 433.10 CAROTID ARTERY OCCLUSION W O CEREBRAL IN 12/06/2013 ZAI HENDERSON MD Ot 585.9 CHRONIC KIDNEY DISEASE, [...] POST SURGERY CIRULATORY SYSTEM 05/02/2014 GEO PASCAL MANAGER SOFTWARE Ot 202.80 05/02/2014 GEO PASCAL MANAGER SOFTWARE Ot 279.00 05/02/2014 GEO PASCAL MANAGER SOFTWARE Ot 585.3 05/02/2014 GEO PASCAL MANAGER SOFTWARE Ot 714.0 05/02/2014 GEO PASCAL MANAGER SOFTWARE Ot V58.69 05/02/2014 GEO PASCAL MANAGER SOFTWARE Ot V87.41 05/06/2014 GEO PASCAL MANAGER SOFTWARE Ot 202.80 05/06/2014 GEO PASCAL MANAGER SOFTWARE Ot 279.00 05/06/2014 GEO PASCAL MANAGER SOFTWARE Ot 585.3 05/06/2014 GEO PASCAL MANAGER SOFTWARE Ot 714.0 05/06/2014 GEO PASCAL MANAGER SOFTWARE Ot V58.69 05/06/2014 GEO PASCAL MANAGER SOFTWARE Ot V87.41 06/23/2014 ALON SHELBY MD Ot V76.12 06/26/2014 SEBAS KENNEDY Ot 202.80 OTH LYMPHOMAS EXTRANODAL SOLID ORGAN U 06/26/2014 SEBAS KENNEDY Ot 238.71 ESSENTIAL THROMBOCYTHEMIA 06/26/2014 SEBAS KENNEDY Ot 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 06/26/2014 SEBAS KENNEDY Ot 585.3 CHRONIC KIDNEY DISEASE, STAGE III (MODER 06/26/2014 SEBAS KENNEDY Ot 714.0 RHEUMATOID ARTHRITIS 06/26/2014 SEBAS KENNEDY [...] FALL 08/29/2014 LUCY CHEEK MD Ot V06.1 [id number], COMBINED [ 08/29/2014 LUCY CHEEK MD Ot [...] ALON Sanderson Ot 786.2 12/01/2014 GEO PASCAL MANAGER SOFTWARE Ot 202.80 12/01/2014 GEO PASCAL MANAGER SOFTWARE Ot 279.00 12/01/2014 GEO PASCAL MANAGER SOFTWARE Ot 585.3 12/01/2014 GEO PASCAL MANAGER SOFTWARE Ot 714.0 12/01/2014 GEO PASCAL MANAGER SOFTWARE Ot V58.69 12/01/2014 GEO PASCAL MANAGER SOFTWARE Ot V87.41 12/04/2014 GEO PASCAL MANAGER SOFTWARE Ot 202.80 12/04/2014 GEO PASCAL MANAGER SOFTWARE Ot 279.00 12/04/2014 GEO PASCAL MANAGER SOFTWARE Ot 585.3 12/04/2014 GEO PASCAL MANAGER SOFTWARE Ot 714.0 12/04/2014 GEO PASCAL MANAGER SOFTWARE Ot V58.69 12/04/2014 GEO PASCAL MANAGER SOFTWARE Ot V87.41 12/04/2014 AFSANEH SMITH, ALON Sanderson [...] KENNEDY N Ot V58.69 04/30/2015 GEO PASCAL MANAGER SOFTWARE Ot C85.90 04/30/2015 GEO PASCAL MANAGER SOFTWARE Ot D80.1 04/30/2015 GEO PASCAL MANAGER SOFTWARE Ot M06.9 04/30/2015 GEO PASCAL MANAGER SOFTWARE Ot N18.3 04/30/2015 GEO PASCAL S MANAGER SOFTWARE Ot Z79.899 04/30/2015 GEO PASCAL S MANAGER SOFTWARE Ot Z92.21 05/06/2015 GEO PASCAL S MANAGER SOFTWARE Ot C85.90 05/06/2015 GEO PASCAL MANAGER SOFTWARE Ot D80.1 05/06/2015 GEO PASCAL MANAGER SOFTWARE Ot M06.9 05/06/2015 GEO PASCAL MANAGER SOFTWARE Ot N18.3 05/06/2015 GEO PASCAL S MANAGER SOFTWARE Ot Z79.899 05/06/2015 GEO PASCAL S MANAGER SOFTWARE Ot Z92.21 05/15/2015 SEBAS KENNEDY Ot C85.90 [...] ALVAREZ MD Ot 599.0 05/20/2015 GEO PASCAL MANAGER SOFTWARE Ot 202.80 05/20/2015 GEO PASCAL MANAGER SOFTWARE Ot 279.00 05/20/2015 GEO PASCAL MANAGER SOFTWARE Ot 288.60 05/20/2015 GEO PASCAL MANAGER SOFTWARE Ot 714.0 05/20/2015 GEO PASCAL MANAGER SOFTWARE Ot V13.02 05/20/2015 GEO PASCAL MANAGER SOFTWARE Ot V58.69 05/20/2015 GEO PASCAL MANAGER SOFTWARE Ot V87.41 05/20/2015 PASCALGEO Leslie MANAGER SOFTWARE Ot 202.80 05/20/2015 PASCALGEO Leslie MANAGER SOFTWARE Ot 279.00 05/20/2015 GEO PASCAL S MANAGER SOFTWARE Ot 714.0 05/20/2015 GEO PASCAL S MANAGER SOFTWARE Ot V58.69 05/20/2015 GEO PASCAL S MANAGER SOFTWARE Ot V87.41 05/20/2015 SCOTT, KEL V GREEN JOBS TRAINER Ot 268.9 05/20/2015 SCOTT, KEL V GREEN JOBS TRAINER Ot 714.0 05/20/2015 SCOTT, KEL V GREEN JOBS TRAINER Ot V58.64 05/20/2015 SCOTT, KEL V GREEN JOBS TRAINER Ot V58.69 05/20/2015 PASCALGEO Leslie MANAGER SOFTWARE Ot 202.80 05/20/2015 PASCALGEO Leslie MANAGER SOFTWARE Ot 238.71 05/20/2015 PASCALGEO Leslie MANAGER SOFTWARE Ot 279.00 05/20/2015 PASCALGEO Leslie S MANAGER SOFTWARE Ot 585.3 05/20/2015 PASCALGEO Leslie MANAGER SOFTWARE Ot 714.0 05/20/2015 PASCALGEO Leslie MANAGER SOFTWARE Ot V58.69 05/20/2015 SANTIAGO SMITH, ZIA Sanderson Ot 272.4 05/20/2015 SANTIAGO SMITH, ZIA Sanderson Ot 403.90 05/20/2015 SANTIAGO SMITH, ZIA Sanderson Ot 411.1 05/20/2015 SANTIAGO SMITH, ZIA Sanderson Ot 414.01 05/20/2015 SANTIAGO SMITH, ZIA Sanderson Ot 477.9 05/20/2015 SANTIAGO SMITH, ZIA Sanderson Ot 585.9 05/20/2015 SANTIAGO SMITH, ZIA Sanderson Ot 716.90 05/20/2015 SANTIAGO SMITH, ZIA Sanderson Ot V58.69 05/20/2015 PASCALGEO Leslie MANAGER SOFTWARE Ot 202.80 05/20/2015 PASCALGEO Leslie MANAGER SOFTWARE Ot 279.00 05/20/2015 PASCALGEO S MANAGER SOFTWARE Ot 585.3 05/20/2015 NAIDA GEO S MANAGER SOFTWARE Ot 714.0 05/20/2015 NAIDA GEO S MANAGER SOFTWARE Ot V58.69 05/20/2015 GEO PASCAL S MANAGER SOFTWARE Ot V87.41 05/20/2015 AFSANEH SMITH, ALON Sanderson [...] Sanderson Ot 433.10 05/20/2015 GEO PASCAL S MANAGER SOFTWARE Ot 202.80 05/20/2015 GEO PASCAL S MANAGER SOFTWARE Ot 279.00 05/20/2015 GEO PASCAL S MANAGER SOFTWARE Ot 585.3 05/20/2015 GEO PASCAL S MANAGER SOFTWARE Ot 714.0 05/20/2015 GEO PASCAL S MANAGER SOFTWARE Ot V58.69 05/20/2015 GEO PASCAL S MANAGER SOFTWARE Ot V87.41 05/20/2015 AFSANEH SMITH, ALON Sanderson Ot 486 05/20/2015 AFSANEH SMITH, ALON Sanderson Ot 786.2 05/20/2015 SANTIAGO SMITH, ZIA Sanderson Ot 272.4 05/20/2015 SANTIAGO SMITH, ZIA Sanderson Ot 401.9 05/20/2015 SANTIAGO SMITH, ZIA Sanderson Ot 414.00 05/20/2015 SANTIAGO SMITH, ZIA Sanderson Ot 433.10 05/20/2015 MARCIA, BOBAN N Ot C85.90 05/20/2015 AMRCIA, BOBAN N Ot D80.1 05/20/2015 MARCIA, BOBAN N Ot M06.9 05/20/2015 MARCIA, BOBAN N Ot N18.3 05/20/2015 MARCIA, BOBAN N Ot Z79.899 05/20/2015 MARCIA, BOBAN N Ot Z92.21 05/20/2015 GEO PASCAL S MANAGER SOFTWARE Ot C85.90 05/20/2015 GEO PASCAL S MANAGER SOFTWARE Ot D80.1 05/20/2015 GEO PASCAL MANAGER SOFTWARE Ot M06.9 05/20/2015 GEO PASCAL MANAGER SOFTWARE Ot N18.3 05/20/2015 GEO PASCAL MANAGER SOFTWARE Ot Z79.899 05/20/2015 GEO PASCAL MANAGER SOFTWARE Ot Z92.21 05/20/2015 SANTIAGO SMITH, ZIA Sanderson [...] 06/11/2015 MARCIA BOBAN N Ot Z79.899 OTHER PRISON (CURRENT) DRUG THERAPY 06/11/2015 MARCIASEBAS OSHEA N [...] 10/08/2015 MARCIA, BOBAN N Ot Z79.899 OTHER PRISON (CURRENT) DRUG THERAPY 10/08/2015 MARCIASEBAS N Ot Z92.21 PERSONAL HISTORY OF ANTINEOPLASTIC CHEMO 10/09/2015 MARCIAMILAGROAN N Ot C85.90 NON-HODGKIN LYMPHOMA, UNSPECIFIED, UNSPE 10/09/2015 MARCIA, MILAGROAN N Ot D80.1 NONFAMILIAL HYPOGAMMAGLOBULINEMIA 10/09/2015 MARCIASEBAS N Ot M06.9 RHEUMATOID ARTHRITIS, UNSPECIFIED 10/09/2015 MARCIASEBAS N Ot N18.3 CHRONIC KIDNEY DISEASE, STAGE 3 (MODERAT 10/09/2015 MARCIASEBAS N Ot 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 10/09/2015 MARCIASEBAS OSHEA N Ot Z92.21 PERSONAL HISTORY OF ANTINEOPLASTIC CHEMO 10/13/2015 MARCIA, SEBAS N Ot C85.90 NON-HODGKIN LYMPHOMA, UNSPECIFIED, UNSPE 10/13/2015 MARCIA, BOBAN N Ot D80.1 NONFAMILIAL HYPOGAMMAGLOBULINEMIA 10/13/2015 MARCIASEBAS N Ot M06.9 RHEUMATOID ARTHRITIS, UNSPECIFIED 10/13/2015 MARCIASEBAS N Ot N18.3 CHRONIC KIDNEY DISEASE, STAGE 3 (MODERAT 10/13/2015 MARCIASEBAS N Ot Z79.899 OTHER PRISON (CURRENT) DRUG THERAPY 10/13/2015 MARCIASEBAS N Ot [...] 11/20/2015 MARCIA BOBAN N Ot 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 12/03/2015 MARCIA, BOBAN N Ot C85.90 NON-HODGKIN LYMPHOMA, UNSPECIFIED, UNSPE 12/03/2015 MARCIA, BOBAN N Ot D80.1 NONFAMILIAL HYPOGAMMAGLOBULINEMIA 12/03/2015 MARCIASEBAS N Ot M06.9 RHEUMATOID ARTHRITIS, UNSPECIFIED 12/03/2015 MARCIASEBAS N Ot N18.3 CHRONIC KIDNEY DISEASE, STAGE 3 (MODERAT 12/03/2015 MARCIASEBAS N Ot Z51.11 ENCOUNTER FOR ANTINEOPLASTIC CHEMOTHERAP 12/03/2015 MARCIASEBAS N Ot Z79.899 OTHER PRISON (CURRENT) DRUG THERAPY 01/07/2016 MARCIA BOBTRUDY N Ot C85.90 NON-HODGKIN LYMPHOMA, UNSPECIFIED, UNSPE 01/07/2016 MARCIASEBAS N Ot D80.1 NONFAMILIAL HYPOGAMMAGLOBULINEMIA 01/07/2016 MARCIASEBAS OSHEA N Ot M06.9 RHEUMATOID ARTHRITIS, UNSPECIFIED 01/07/2016 MARCIASEBAS N Ot N18.3 CHRONIC KIDNEY DISEASE, STAGE 3 (MODERAT 01/07/2016 MARCIA BOBTRUDY N Ot Z51.11 ENCOUNTER FOR ANTINEOPLASTIC CHEMOTHERAP 01/07/2016 MARCIA BOBTRUDY N Ot Z79.899 OTHER PRISON (CURRENT) DRUG THERAPY 01/08/2016 MARCIA BOBAN N Ot C85.90 NON-HODGKIN LYMPHOMA, UNSPECIFIED, UNSPE 01/08/2016 MARCIASEBAS N Ot D80.1 NONFAMILIAL HYPOGAMMAGLOBULINEMIA 01/08/2016 MARCIASEBAS N Ot M06.9 RHEUMATOID ARTHRITIS, UNSPECIFIED 01/08/2016 MARCIASEBAS N Ot N18.3 CHRONIC KIDNEY DISEASE, STAGE 3 (MODERAT 01/08/2016 MARCIASEBAS N Ot Z51.11 ENCOUNTER FOR ANTINEOPLASTIC CHEMOTHERAP 01/08/2016 MARCIA, BOBAN N Ot Z79.899 OTHER PRISON (CURRENT) DRUG THERAPY 03/25/2016 Ot 255.8 ADRENAL DISORDER NEC 03/25/2016 Ot 272.4 HYPERLIPIDEMIA NEC/NOS 03/25/2016 Ot 255.41 GLUCOCORTICOID DEFICIENCY 03/25/2016 Ot 733.90 BONE CARTILAGE DIS NOS 03/25/2016 Ot V49.81 ASYMPT POSTMENOPAUSAL STATUS (AGE-RELATE 03/25/2016 Ot V58.65 LONG-TERM( CURRENT)USE OF STEROIDS 03/25/2016 Ot V82.81 SCREENING FOR OSTEOPOROSIS 03/25/2016 Ot 714.0 RHEUMATOID ARTHRITIS 03/25/2016 Ot 790.8 VIREMIA NOS 03/25/2016 Ot 794.09 ABN GREEN JOBS TRAINER FUNCT STUDY NEC 03/25/2016 Ot V58.65 LONG-TERM( [...] URIN TRACT INFECTION NOS 03/25/2016 GEO PASCAL MANAGER SOFTWARE Ot 202.80 OTH LYMPHOMAS EXTRANODAL SOLID ORGAN U 03/25/2016 GEO PASCAL MANAGER SOFTWARE Ot 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 03/25/2016 GEO PASCAL MANAGER SOFTWARE Ot 288.60 LEUKOCYTOSIS, UNSPECIFIED 03/25/2016 GEO PASCALP Ot 714.0 RHEUMATOID ARTHRITIS 03/25/2016 GEO PASCAL MANAGER SOFTWARE Ot V13.02 PERSONAL HISTORY, URINARY (TRACT) INFECT 03/25/2016 GEO PASCAL MANAGER SOFTWARE Ot V58.69 OTH MED,LT,CURRENT USE 03/25/2016 GEO PASCAL MANAGER SOFTWARE Ot V87.41 PERSONAL HISTORY OF ANTINEOPLASTIC CHEMO 03/25/2016 GEO PASCAL MANAGER SOFTWARE Ot 202.80 OTH LYMPHOMAS EXTRANODAL SOLID ORGAN U 03/25/2016 GEO PASCAL MANAGER SOFTWARE Ot 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 03/25/2016 GEO PASCAL MANAGER SOFTWARE Ot 714.0 RHEUMATOID ARTHRITIS 03/25/2016 GEO PASCAL MANAGER SOFTWARE Ot V58.69 OTH MED,LT,CURRENT USE 03/25/2016 GEO PASCAL MANAGER SOFTWARE Ot V87.41 PERSONAL HISTORY OF ANTINEOPLASTIC CHEMO 03/25/2016 KEL CHAVEZ V GREEN JOBS TRAINER Ot 268.9 VITAMIN D DEFICIENCY NOS 03/25/2016 SCOTTLIMA BRYANTINE V GREEN JOBS TRAINER Ot 714.0 RHEUMATOID ARTHRITIS 03/25/2016 SCOTTLIMAKEL V GREEN JOBS TRAINER Ot V58.64 LONG-TERM(CURRENT)USE OF NON-STEROIDAL A 03/25/2016 SCOTT KEL V GREEN JOBS TRAINER Ot V58.69 OTH MED,LT,CURRENT USE 03/25/2016 GEO PASCAL MANAGER SOFTWARE Ot 202.80 OTH LYMPHOMAS EXTRANODAL SOLID ORGAN U 03/25/2016 GEO PASCAL MANAGER SOFTWARE Ot 238.71 ESSENTIAL THROMBOCYTHEMIA 03/25/2016 GEO PASCAL MANAGER SOFTWARE Ot 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 03/25/2016 GEO PASCAL MANAGER SOFTWARE Ot 585.3 CHRONIC KIDNEY DISEASE, STAGE III (MODER 03/25/2016 GEO PASCAL MANAGER SOFTWARE Ot 714.0 RHEUMATOID ARTHRITIS 03/25/2016 GEO PASCAL MANAGER SOFTWARE Ot V58.69 OTH MED,LT,CURRENT USE 03/25/2016 ZIA HENDERSON MD Ot 272.4 HYPERLIPIDEMIA NEC/NOS 03/25/2016 ZIA HENDERSON MD Ot 403.90 HYPTNSV CHR KID DIS, UNSPEC, W CHR KD ST 03/25/2016 ZIA HENDERSON MD Ot 411.1 INTERMED CORONARY SYND 03/25/2016 ZIA HENDERSON MD Ot 414.01 CORONARY ATHEROSCLEROSIS OF [place] CORON 03/25/2016 ZIA HENDERSON MD Ot 477.9 ALLERGIC RHINITIS NOS 03/25/2016 ZIA HENDERSON MD Ot 585.9 CHRONIC KIDNEY DISEASE, UNSPECIFIED 03/25/2016 ZIA HENDERSON MD Ot 716.90 ARTHROPATHY NOS-UNSPEC 03/25/2016 ZIA HENDERSON MD Ot V58.69 OTH MED,LT,CURRENT USE 03/25/2016 GEO PASCAL MANAGER SOFTWARE Ot 202.80 OTH LYMPHOMAS EXTRANODAL SOLID ORGAN U 03/25/2016 GEO PASCAL MANAGER SOFTWARE Ot 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 03/25/2016 GEO PASCLA MANAGER SOFTWARE Ot 585.3 CHRONIC KIDNEY DISEASE, STAGE III (MODER 03/25/2016 GEO PASCAL MANAGER SOFTWARE Ot 714.0 RHEUMATOID ARTHRITIS 03/25/2016 GEO PASCALP Ot V58.69 OTH MED,LT,CURRENT USE 03/25/2016 GEO PASCAL MANAGER SOFTWARE Ot V87.41 PERSONAL HISTORY OF ANTINEOPLASTIC CHEMO [...] Ot 401.9 HYPERTENSION NOS 03/25/2016 SANTIAGO SMITH, ZIA Sanderson Ot 414.00 CORON ATHEROSCLER NOS TYPE VESSEL, NATIV 03/25/2016 ZIA HENDERSON MD Ot 433.10 CAROTID ARTERY OCCLUSION W O CEREBRAL IN 03/25/2016 GEO PASCAL MANAGER SOFTWARE Ot 202.80 OTH LYMPHOMAS EXTRANODAL SOLID ORGAN U 03/25/2016 GEO PASCAL S MANAGER SOFTWARE Ot 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 03/25/2016 GEO PASCAL MANAGER SOFTWARE Ot 585.3 CHRONIC KIDNEY DISEASE, STAGE III (MODER 03/25/2016 GEO PASCAL MANAGER SOFTWARE Ot 714.0 RHEUMATOID ARTHRITIS 03/25/2016 GEO PASCAL MANAGER SOFTWARE Ot V58.69 OTH MED,LT,CURRENT USE 03/25/2016 GEO PASCAL MANAGER SOFTWARE Ot V87.41 PERSONAL HISTORY OF ANTINEOPLASTIC CHEMO [...] (MODERAT 03/25/2016 GEO PASCAL Ot 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 03/25/2016 GEO PASCAL Ot Z92.21 PERSONAL HISTORY OF ANTINEOPLASTIC CHEMO 03/25/2016 ZIA HENDERSON MD Ot E78.5 HYPERLIPIDEMIA, UNSPECIFIED 03/25/2016 ZIA HENDERSON MD Ot I10 ESSENTIAL (PRIMARY) HYPERTENSION 03/25/2016 ZIA HENDERSON MD Ot I25.10 ATHSCL HEART DISEASE OF [place] CORONARY 03/25/2016 ZIA HENDERSON MD Ot I65.23 [...] CHEMOTHERAP 03/25/2016 SEBAS KENNEDY Ot Z79.899 OTHER PRISON (CURRENT) DRUG THERAPY 03/28/2016 FLORA MALIK Ot E78.4 OTHER HYPERLIPIDEMIA 03/28/2016 FLORA MALIK Ot I10 ESSENTIAL (PRIMARY) HYPERTENSION 03/28/2016 FLORA MALIK Ot I25.10 ATHSCL HEART DISEASE OF [place] CORONARY 03/28/2016 FLORA MALIK Ot I65.23 OCCLUSION [...] 04/04/2016 MARCIA SEBAS Castillo Ot Z79.899 OTHER PRISON (CURRENT) DRUG THERAPY 04/07/2016 Ot E78.4 OTHER HYPERLIPIDEMIA 04/07/2016 Ot I10 ESSENTIAL ( PRIMARY) HYPERTENSION 04/07/2016 Ot I25.10 ATHSCL HEART DISEASE OF [place] CORONARY 04/07/2016 Ot I65.23 OCCLUSION AND STENOSIS OF BILATERAL SEAY 04/07/2016 Ot E78.4 OTHER HYPERLIPIDEMIA 04/07/2016 Ot I10 ESSENTIAL ( PRIMARY) HYPERTENSION 04/07/2016 Ot I25.10 ATHSCL HEART DISEASE OF [place] CORONARY 04/07/2016 Ot I65.23 OCCLUSION AND STENOSIS OF BILATERAL SEAY 04/15/2016 FLORA MALIK Ot E78.4 OTHER HYPERLIPIDEMIA 04/15/2016 FLORA MALIK Ot I10 ESSENTIAL (PRIMARY) HYPERTENSION 04/15/2016 FLORA MALIK Ot I25.10 ATHSCL HEART DISEASE OF [place] CORONARY 04/15/2016 FLORA MALIK Ot I65.23 OCCLUSION AND STENOSIS OF BILATERAL SEAY 04/25/2016 FLORA MALIK Ot E78.4 OTHER HYPERLIPIDEMIA 04/25/2016 FLORA MALIK Ot I10 ESSENTIAL (PRIMARY) HYPERTENSION 04/25/2016 FLORA MALIK Ot I25.10 ATHSCL HEART DISEASE OF [place] CORONARY 04/25/2016 FLORA MALIK Ot I65.23 OCCLUSION AND STENOSIS OF BILATERAL SEAY 04/26/2016 MARCIASEBAS OSHEA N Ot C85.90 NON-HODGKIN LYMPHOMA, UNSPECIFIED, UNSPE 04/26/2016 SEBAS KENNEDY N Ot D80.1 NONFAMILIAL HYPOGAMMAGLOBULINEMIA 04/26/2016 SEBAS KENNEDY N Ot M06.9 RHEUMATOID ARTHRITIS, UNSPECIFIED 04/26/2016 SEBAS KENNEDY N Ot N18.3 CHRONIC KIDNEY DISEASE, STAGE 3 (MODERAT 04/26/2016 MARCIASEBAS OSHEA N Ot 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 04/27/2016 SEBAS KENNEDY N Ot C85.90 NON-HODGKIN LYMPHOMA, UNSPECIFIED, UNSPE 04/27/2016 SEBAS KENNEDY N Ot D80.1 NONFAMILIAL HYPOGAMMAGLOBULINEMIA 04/27/2016 SEBAS KENNEDY N Ot M06.9 RHEUMATOID ARTHRITIS, UNSPECIFIED 04/27/2016 SEBAS KENNEDY N Ot N18.3 CHRONIC KIDNEY DISEASE, STAGE 3 (MODERAT 04/27/2016 MARCIASEBAS OSHEA N Ot 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 04/27/2016 Ot E78.4 OTHER HYPERLIPIDEMIA 04/27/2016 Ot I10 ESSENTIAL ( PRIMARY) HYPERTENSION 04/27/2016 Ot I25.10 ATHSCL HEART DISEASE OF [place] CORONARY 04/27/2016 Ot I65.23 OCCLUSION AND STENOSIS OF BILATERAL SEAY 05/05/2016 Ot E78.4 OTHER HYPERLIPIDEMIA 05/05/2016 Ot I10 ESSENTIAL ( PRIMARY) HYPERTENSION 05/05/2016 Ot I25.10 ATHSCL HEART DISEASE OF [place] CORONARY 05/05/2016 Ot I65.23 OCCLUSION AND STENOSIS OF BILATERAL SEAY 06/16/2016 SEBAS KENNEDY N Ot C85.90 NON-HODGKIN LYMPHOMA, UNSPECIFIED, UNSPE 06/16/2016 SEBAS KENNEDY N Ot D80.1 NONFAMILIAL HYPOGAMMAGLOBULINEMIA 06/16/2016 SEBAS KENNEDY N Ot M06.9 RHEUMATOID ARTHRITIS, UNSPECIFIED 06/16/2016 MARCIASEBAS OSHEA N Ot N18.3 CHRONIC KIDNEY DISEASE, STAGE 3 (MODERAT 06/16/2016 MARCIASEBAS N Ot 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 06/24/2016 MARCIA, BOBAN N Ot C85.90 NON-HODGKIN LYMPHOMA, UNSPECIFIED, UNSPE 06/24/2016 MARCIA, BOBAN N Ot D80.1 NONFAMILIAL HYPOGAMMAGLOBULINEMIA 06/24/2016 MARCIA, BOBAN N Ot M06.9 RHEUMATOID ARTHRITIS, UNSPECIFIED 06/24/2016 MARCIA, BOBAN N Ot N18.3 CHRONIC KIDNEY DISEASE, STAGE 3 (MODERAT 06/24/2016 MARCIA, BOBAN N Ot Z79.899 OTHER PRISON (CURRENT) DRUG THERAPY 07/20/2016 MARCIA, BOBAN N Ot C85.90 NON-HODGKIN LYMPHOMA, UNSPECIFIED, UNSPE 07/20/2016 MARCIA, BOBAN N Ot D80.1 NONFAMILIAL HYPOGAMMAGLOBULINEMIA 07/20/2016 MARCIA, BOBAN N Ot M06.9 RHEUMATOID ARTHRITIS, UNSPECIFIED 07/20/2016 MARCIA, BOBAN N Ot N18.3 CHRONIC KIDNEY DISEASE, STAGE 3 (MODERAT 07/20/2016 MARCIA, BOBAN N Ot Z79.899 OTHER PRISON (CURRENT) DRUG THERAPY 07/28/2016 MARCIA, BOBAN N Ot C85.90 NON-HODGKIN LYMPHOMA, UNSPECIFIED, UNSPE 07/28/2016 MARCIA, BOBAN N Ot D80.1 NONFAMILIAL HYPOGAMMAGLOBULINEMIA 07/28/2016 MARCIA, BOBAN N Ot M06.9 RHEUMATOID ARTHRITIS, UNSPECIFIED 07/28/2016 MARCIA, BOBAN N Ot N18.3 CHRONIC KIDNEY DISEASE, STAGE 3 (MODERAT 07/28/2016 MARCIA, BOBAN N Ot Z79.899 OTHER PRISON (CURRENT) DRUG THERAPY 09/21/2016 MARCIA, BOBAN N Ot C85.90 NON-HODGKIN LYMPHOMA, UNSPECIFIED, UNSPE 09/21/2016 MARCIA, BOBAN N Ot D80.1 NONFAMILIAL HYPOGAMMAGLOBULINEMIA 09/21/2016 MARCIA, BOBAN N Ot M06.9 RHEUMATOID ARTHRITIS, UNSPECIFIED 09/21/2016 MARCIA, BOBAN N Ot N18.3 CHRONIC KIDNEY DISEASE, STAGE 3 (MODERAT 09/21/2016 MARCIA, BOBAN N Ot Z79.899 OTHER PRISON (CURRENT) DRUG THERAPY 04/10/2017 MARTY CANTU MD Ot C85.90 NON-HODGKIN LYMPHOMA, UNSPECIFIED, UNSPE 04/10/2017 PEPE SMITH, MARTY Ot D80.1 NONFAMILIAL HYPOGAMMAGLOBULINEMIA 04/10/2017 PEPE SMITH, MARTY Ot M06.9 RHEUMATOID ARTHRITIS, UNSPECIFIED 04/10/2017 PEPE SMITH, MARTY Ot N18.3 CHRONIC KIDNEY DISEASE, STAGE 3 (MODERAT 04/10/2017 PEPE SMITH, MARTY Ot Z79.899 OTHER PRISON (CURRENT) DRUG THERAPY 05/03/2017 MARCIA, BOBAN N Ot C85.90 NON-HODGKIN LYMPHOMA, UNSPECIFIED, UNSPE 05/03/2017 MARCIA, BOBAN N Ot D80.1 NONFAMILIAL HYPOGAMMAGLOBULINEMIA 05/03/2017 MARCIA, BOBAN N Ot M06.9 RHEUMATOID ARTHRITIS, UNSPECIFIED 05/03/2017 MARCIA, BOBAN N Ot N18.3 CHRONIC KIDNEY DISEASE, STAGE 3 (MODERAT 05/03/2017 MARCIA, BOBAN N Ot Z79.899 OTHER PRISON (CURRENT) DRUG THERAPY 05/04/2017 MARCIA, BOBAN N Ot C85.90 NON-HODGKIN LYMPHOMA, UNSPECIFIED, UNSPE 05/04/2017 MARCIA, BOBAN N Ot D80.1 NONFAMILIAL HYPOGAMMAGLOBULINEMIA 05/04/2017 MARCIA, BOBAN N Ot M06.9 RHEUMATOID ARTHRITIS, UNSPECIFIED 05/04/2017 MARCIA, BOBAN N Ot N18.3 CHRONIC KIDNEY DISEASE, STAGE 3 (MODERAT 05/04/2017 MARCIA, BOBAN N Ot Z79.899 OTHER PRISON (CURRENT) DRUG THERAPY 05/09/2017 MARCIA, BOBAN N Ot C85.90 NON-HODGKIN LYMPHOMA, UNSPECIFIED, UNSPE 05/09/2017 MARCIA, BOBAN N Ot D80.1 NONFAMILIAL HYPOGAMMAGLOBULINEMIA 05/09/2017 MARCIA, BOBAN N Ot M06.9 RHEUMATOID ARTHRITIS, UNSPECIFIED 05/09/2017 MARCIA, BOBAN N Ot N18.3 CHRONIC KIDNEY DISEASE, STAGE 3 (MODERAT 05/09/2017 MARCIA, BOBAN N Ot 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 05/11/2017 MARTY CANTU MD, Ot C85.90 NON-HODGKIN LYMPHOMA, UNSPECIFIED, UNSPE 05/11/2017 PEPE MD, FERGUSON Ot D80.1 NONFAMILIAL HYPOGAMMAGLOBULINEMIA 05/11/2017 MARTY CANTU MD Ot M06.9 RHEUMATOID ARTHRITIS, UNSPECIFIED 05/11/2017 MARTY CANTU MD Ot N18.3 CHRONIC KIDNEY DISEASE, STAGE 3 (MODERAT 05/11/2017 MARTY CANTU MD Ot Z79.899 OTHER PRISON (CURRENT) DRUG THERAPY 05/23/2017 MARTY CANTU MD Ot C85.90 NON-HODGKIN LYMPHOMA, UNSPECIFIED, UNSPE 05/23/2017 MARTY CANTU MD Ot D80.1 NONFAMILIAL HYPOGAMMAGLOBULINEMIA 05/23/2017 MARTY CANTU MD Ot M06.9 RHEUMATOID ARTHRITIS, UNSPECIFIED 05/23/2017 MARTY CANTU MD Ot N18.3 CHRONIC KIDNEY DISEASE, STAGE 3 (MODERAT 05/23/2017 PEPE SMITH, MARTY Ot 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 05/30/2017 MARCIA, BOBAN N Ot C85.90 NON-HODGKIN LYMPHOMA, UNSPECIFIED, UNSPE 05/30/2017 MARCIA, BOBAN N Ot D80.1 NONFAMILIAL HYPOGAMMAGLOBULINEMIA 05/30/2017 MARCIA, BOBAN N Ot M06.9 RHEUMATOID ARTHRITIS, UNSPECIFIED 05/30/2017 MARCIA, BOBAN N Ot N18.3 CHRONIC KIDNEY DISEASE, STAGE 3 (MODERAT 05/30/2017 MARCIA, BOBAN N Ot 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 05/30/2017 MARCIA, BOBAN N Ot C85.90 NON-HODGKIN LYMPHOMA, UNSPECIFIED, UNSPE 05/30/2017 MARCIA, BOBAN N Ot D80.1 NONFAMILIAL HYPOGAMMAGLOBULINEMIA 05/30/2017 MARCIA, BOBAN N Ot M06.9 RHEUMATOID ARTHRITIS, UNSPECIFIED 05/30/2017 MARCIA, BOBAN N Ot N18.3 CHRONIC KIDNEY DISEASE, STAGE 3 (MODERAT 05/30/2017 MARCIA, BOBAN N Ot 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 06/02/2017 MARTY CANTU MD Ot C85.90 NON-HODGKIN LYMPHOMA, UNSPECIFIED, UNSPE 06/02/2017 MARTY CANTU MD Ot D80.1 NONFAMILIAL HYPOGAMMAGLOBULINEMIA 06/02/2017 MARTY CANTU MD Ot M06.9 RHEUMATOID ARTHRITIS, UNSPECIFIED 06/02/2017 MARTY CANTU MD Ot N18.3 CHRONIC KIDNEY DISEASE, STAGE 3 (MODERAT 06/02/2017 MARTY CANTU MD Ot Z79.899 OTHER PRISON (CURRENT) DRUG THERAPY 07/06/2017 MARTY CANTU MD Ot C85.90 NON-HODGKIN LYMPHOMA, UNSPECIFIED, UNSPE 07/06/2017 MARTY CANTU MD Ot D80.1 NONFAMILIAL HYPOGAMMAGLOBULINEMIA 07/06/2017 MARTY CANTU MD Ot M06.9 RHEUMATOID ARTHRITIS, UNSPECIFIED 07/06/2017 MARTY CANTU MD Ot N18.3 CHRONIC KIDNEY DISEASE, STAGE 3 (MODERAT 07/06/2017 MARTY CANTU MD Ot 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 07/10/2017 MARTY CANTU MD Ot C85.90 NON-HODGKIN LYMPHOMA, UNSPECIFIED, UNSPE 07/10/2017 MARTY CANTU MD Ot D80.1 NONFAMILIAL HYPOGAMMAGLOBULINEMIA 07/10/2017 MARTY CANTU MD Ot M06.9 RHEUMATOID ARTHRITIS, UNSPECIFIED 07/10/2017 MARTY CANTU MD Ot N18.3 CHRONIC KIDNEY DISEASE, STAGE 3 (MODERAT 07/10/2017 PEPE SMITH, MARTY Ot Z79.899 OTHER PRISON (CURRENT) DRUG THERAPY 08/23/2017 SEBAS KENNEDY N Ot C85.90 NON-HODGKIN LYMPHOMA, UNSPECIFIED, UNSPE 08/23/2017 SEBAS KENNEDY N Ot D80.1 NONFAMILIAL HYPOGAMMAGLOBULINEMIA 08/23/2017 SEBAS KENNEDY N Ot M06.9 RHEUMATOID ARTHRITIS, UNSPECIFIED 08/23/2017 SEBAS KENNEDY N Ot N18.3 CHRONIC KIDNEY DISEASE, STAGE 3 (MODERAT 08/23/2017 SEBAS KENNEDY N Ot 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 08/23/2017 MARTY CANTU MD Ot C85.90 NON-HODGKIN LYMPHOMA, UNSPECIFIED, UNSPE 08/23/2017 MARTY CANTU MD Ot D80.1 NONFAMILIAL HYPOGAMMAGLOBULINEMIA 08/23/2017 MARTY CANTU MD Ot M06.9 RHEUMATOID ARTHRITIS, UNSPECIFIED 08/23/2017 MARTY CANTU MD Ot N18.3 CHRONIC KIDNEY DISEASE, STAGE 3 (MODERAT 08/23/2017 MARTY CANTU MD Ot Z79.899 OTHER PRISON (CURRENT) DRUG THERAPY 08/25/2017 PEPE SMITH, MARTY Ot C85.90 NON-HODGKIN LYMPHOMA, UNSPECIFIED, UNSPE 08/25/2017 PEPE SMITH, MARTY Ot D80.1 NONFAMILIAL HYPOGAMMAGLOBULINEMIA 08/25/2017 MARTY CANTU MD Ot M06.9 RHEUMATOID ARTHRITIS, UNSPECIFIED 08/25/2017 MARTY CANTU MD Ot N18.3 CHRONIC KIDNEY DISEASE, STAGE 3 (MODERAT 08/25/2017 MARTY CANTU MD Ot 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 09/20/2017 MARTY CANTU MD Ot C85.90 NON-HODGKIN LYMPHOMA, UNSPECIFIED, UNSPE 09/20/2017 PEPE SMITH, MARTY Ot D80.1 NONFAMILIAL HYPOGAMMAGLOBULINEMIA 09/20/2017 MARTY CANTU MD Ot M06.9 RHEUMATOID ARTHRITIS, UNSPECIFIED 09/20/2017 MARTY CANTU MD Ot N18.3 CHRONIC KIDNEY DISEASE, STAGE 3 (MODERAT 09/20/2017 MARTY CANTU MD Ot Z79.899 OTHER PRISON (CURRENT) DRUG THERAPY 09/20/2017 MARTY CANTU MD Ot C85.90 NON-HODGKIN LYMPHOMA, UNSPECIFIED, UNSPE 09/20/2017 MARTY CANTU MD Ot D80.1 NONFAMILIAL HYPOGAMMAGLOBULINEMIA 09/20/2017 MARTY CANTU MD Ot M06.9 RHEUMATOID ARTHRITIS, UNSPECIFIED 09/20/2017 MARTY CANTU MD Ot N18.3 CHRONIC KIDNEY DISEASE, STAGE 3 (MODERAT 09/20/2017 MARTY CANTU MD Ot 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 09/28/2017 ZIA HENDERSON MD Ot E03.9 HYPOTHYROIDISM, UNSPECIFIED 09/28/2017 ZIA HENDERSON MD Ot E78.5 HYPERLIPIDEMIA, UNSPECIFIED 09/28/2017 ZIA HENDERSON MD Ot I12.9 HYPERTENSIVE CHRONIC KIDNEY DISEASE W ST 09/28/2017 ZIA HENDERSON MD Ot 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 09/28/2017 ZIA HENDERSON MD Ot I65.23 OCCLUSION AND STENOSIS OF BILATERAL SEAY 09/28/2017 ZIA HENDERSON MD Ot N18.9 CHRONIC KIDNEY DISEASE, UNSPECIFIED 09/28/2017 ZIA HENDERSON MD Ot Z79.82 PERIPHERAL EDP EQUIPMENT OPERATOR (CURRENT) USE OF ASPIRIN 09/28/2017 ZIA HENDERSON MD Ot Z79.899 OTHER PRISON (CURRENT) DRUG THERAPY 09/28/2017 ZIA HENDERSON MD Ot Z85.72 PERSONAL HISTORY OF NON-HODGKIN LYMPHOMA 09/28/2017 ZIA HENDERSON MD Ot Z85.828 PERSONAL HISTORY OF OTHER MALIGNANT NEOP 09/28/2017 ZIA HENDERSON MD Ot Z92.21 PERSONAL HISTORY OF ANTINEOPLASTIC CHEMO 09/28/2017 ZIA HENDERSON MD Ot Z95.1 PRESENCE OF AORTOCORONARY BYPASS GRAFT 09/29/2017 ZIA HENDERSON MD Ot E03.9 HYPOTHYROIDISM, UNSPECIFIED 09/29/2017 ZIA HENDERSON MD Ot E78.5 HYPERLIPIDEMIA, UNSPECIFIED 09/29/2017 ZIA HENDERSON MD Ot I12.9 HYPERTENSIVE CHRONIC KIDNEY DISEASE W ST 09/29/2017 ZIA HENDERSON MD Ot 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 09/29/2017 ZIA HENDERSON MD Ot I65.23 OCCLUSION AND STENOSIS OF BILATERAL SEAY 09/29/2017 ZIA HENDERSON MD Ot N18.9 CHRONIC KIDNEY DISEASE, UNSPECIFIED 09/29/2017 ZIA HENDERSON MD Ot Z79.82 PERIPHERAL EDP EQUIPMENT OPERATOR (CURRENT) USE OF ASPIRIN 09/29/2017 ZIA HENDERSON MD Ot 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 09/29/2017 ZIA HENDERSON MD Ot Z85.72 PERSONAL HISTORY OF NON-HODGKIN LYMPHOMA 09/29/2017 ZIA HENDERSON MD Ot Z85.828 PERSONAL HISTORY OF OTHER MALIGNANT NEOP 09/29/2017 ZIA HENDERSON MD Ot Z92.21 PERSONAL HISTORY OF ANTINEOPLASTIC CHEMO 09/29/2017 ZIA HENDERSON MD Ot Z95.1 PRESENCE OF AORTOCORONARY BYPASS GRAFT 09/29/2017 ZIA HENDERSON MD Ot E03.9 HYPOTHYROIDISM, UNSPECIFIED 09/29/2017 ZIA HENDERSON MD Ot E78.5 HYPERLIPIDEMIA, UNSPECIFIED 09/29/2017 ZIA HENDERSON MD Ot I12.9 HYPERTENSIVE CHRONIC KIDNEY DISEASE W ST 09/29/2017 ZIA HENDERSON MD, Ot 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 09/29/2017 ZIA HENDERSON MD, Ot I65.23 OCCLUSION AND STENOSIS OF BILATERAL SEAY 09/29/2017 ZIA HENDERSON MD, Ot N18.9 CHRONIC KIDNEY DISEASE, UNSPECIFIED 09/29/2017 ZIA HENDERSON MD, Ot Z79.82 PRISON (CURRENT) USE OF ASPIRIN 09/29/2017 ZIA HENDERSON MD, Ot Z79.899 OTHER PRISON (CURRENT) DRUG THERAPY 09/29/2017 ZIA HENDERSON MD, Ot Z85.72 PERSONAL HISTORY OF NON-HODGKIN LYMPHOMA 09/29/2017 ZIA HENDERSON MD, Ot Z85.828 PERSONAL HISTORY OF OTHER MALIGNANT NEOP 09/29/2017 ZIA HENDERSON MD, Ot Z92.21 PERSONAL HISTORY OF ANTINEOPLASTIC CHEMO 09/29/2017 ZIA HENDERSON MD, Ot Z95.1 PRESENCE OF AORTOCORONARY BYPASS GRAFT 11/22/2017 MARTY CANTU MD Ot C85.90 NON-HODGKIN LYMPHOMA, UNSPECIFIED, UNSPE 11/22/2017 MARTY CANTU MD Ot D80.1 NONFAMILIAL HYPOGAMMAGLOBULINEMIA 11/22/2017 MARTY CANTU MD Ot M06.9 RHEUMATOID ARTHRITIS, UNSPECIFIED 11/22/2017 MARTY CANTU MD Ot N18.3 CHRONIC KIDNEY DISEASE, STAGE 3 (MODERAT 11/22/2017 MARTY CANTU MD Ot Z79.899 OTHER PRISON (CURRENT) DRUG THERAPY 11/23/2017 MARTY CANTU MD, Ot C85.90 NON-HODGKIN LYMPHOMA, UNSPECIFIED, UNSPE 11/23/2017 MARTY CANTU MD Ot D80.1 NONFAMILIAL HYPOGAMMAGLOBULINEMIA 11/23/2017 MARTY CANTU MD Ot M06.9 RHEUMATOID ARTHRITIS, UNSPECIFIED 11/23/2017 MARTY CANTU MD Ot N18.3 CHRONIC KIDNEY DISEASE, STAGE 3 (MODERAT 11/23/2017 MARTY CANTU MD Ot 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 03/29/2018 ANTONIO SMITH, ITALO Frederick Ot 599.0 URIN TRACT INFECTION NOS 03/29/2018 GEO PASCAL MANAGER SOFTWARE Ot 202.80 OTH LYMPHOMAS EXTRANODAL SOLID ORGAN U 03/29/2018 GEO PASCAL MANAGER SOFTWARE Ot 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 03/29/2018 GEO PASCAL MANAGER SOFTWARE Ot 288.60 LEUKOCYTOSIS, UNSPECIFIED 03/29/2018 GEO PASCAL MANAGER SOFTWARE Ot 714.0 RHEUMATOID ARTHRITIS 03/29/2018 GEO PASCAL MANAGER SOFTWARE Ot V13.02 PERSONAL HISTORY, URINARY (TRACT) INFECT 03/29/2018 GEO PASCAL MANAGER SOFTWARE Ot V58.69 OTH MED,LT,CURRENT USE 03/29/2018 GEO PASCAL MANAGER SOFTWARE Ot V87.41 PERSONAL HISTORY OF ANTINEOPLASTIC CHEMO 03/29/2018 GEO PASCAL MANAGER SOFTWARE Ot 202.80 OTH LYMPHOMAS EXTRANODAL SOLID ORGAN U 03/29/2018 GEO PASCAL MANAGER SOFTWARE Ot 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 03/29/2018 GEO PASCAL MANAGER SOFTWARE Ot 714.0 RHEUMATOID ARTHRITIS 03/29/2018 GEO PASCAL MANAGER SOFTWARE Ot V58.69 OTH MED,LT,CURRENT USE 03/29/2018 GEO PASCAL MANAGER SOFTWARE Ot V87.41 PERSONAL HISTORY OF ANTINEOPLASTIC CHEMO 03/29/2018 KEL CHAVEZ V GREEN JOBS TRAINER Ot 268.9 VITAMIN D DEFICIENCY NOS 03/29/2018 KEL CHAVEZ V GREEN JOBS TRAINER Ot 714.0 RHEUMATOID ARTHRITIS 03/29/2018 SCOTTKEL BRYANT V GREEN JOBS TRAINER Ot V58.64 LONG-TERM(CURRENT)USE OF NON-STEROIDAL A 03/29/2018 LIMA CHAVEZINE V GREEN JOBS TRAINER Ot V58.69 OTH MED,LT,CURRENT USE 03/29/2018 GEO PASCAL MANAGER SOFTWARE Ot 202.80 OTH LYMPHOMAS EXTRANODAL SOLID ORGAN U 03/29/2018 GEO PASCAL MANAGER SOFTWARE Ot 238.71 ESSENTIAL THROMBOCYTHEMIA 03/29/2018 GEO PASCAL MANAGER SOFTWARE Ot 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 03/29/2018 GEO PASCAL MANAGER SOFTWARE Ot 585.3 CHRONIC KIDNEY DISEASE, STAGE III (MODER 03/29/2018 GEO PASCAL MANAGER SOFTWARE Ot 714.0 RHEUMATOID ARTHRITIS 03/29/2018 GEO PASCAL MANAGER SOFTWARE Ot V58.69 OTH MED,LT,CURRENT USE 03/29/2018 ZIA HENDERSON MD Ot 272.4 HYPERLIPIDEMIA NEC/NOS 03/29/2018 ZIA HENDERSON MD Ot 403.90 HYPTNSV CHR KID DIS, UNSPEC, W CHR KD ST 03/29/2018 ZIA HENDERSON MD Ot 411.1 INTERMED CORONARY SYND 03/29/2018 ZIA HENDERSON MD Ot 414.01 CORONARY ATHEROSCLEROSIS OF [place] CORON 03/29/2018 ZIA HENDERSON MD Ot 477.9 ALLERGIC RHINITIS NOS 03/29/2018 ZIA HENDERSON MD Ot 585.9 CHRONIC KIDNEY DISEASE, UNSPECIFIED 03/29/2018 ZIA HENDERSON MD Ot 716.90 ARTHROPATHY NOS-UNSPEC 03/29/2018 ZIA HENDERSON MD Ot V58.69 OTH MED,LT,CURRENT USE 03/29/2018 GEO PASCAL MANAGER SOFTWARE Ot 202.80 OTH LYMPHOMAS EXTRANODAL SOLID ORGAN U 03/29/2018 GEO PASCAL MANAGER SOFTWARE Ot 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 03/29/2018 GEO PASCAL MANAGER SOFTWARE Ot 585.3 CHRONIC KIDNEY DISEASE, STAGE III (MODER 03/29/2018 GEO PASCAL MANAGER SOFTWARE Ot 714.0 RHEUMATOID ARTHRITIS 03/29/2018 GEO PASCAL MANAGER SOFTWARE Ot V58.69 OTH MED,LT,CURRENT USE 03/29/2018 GEO PASCAL MANAGER SOFTWARE Ot V87.41 PERSONAL HISTORY OF ANTINEOPLASTIC CHEMO 03/29/2018 AFSANEH SMITH, ALON Sanderson Ot V76.12 OTH SCREEN MAMMO-MALIGN NEOPLASM OF [place] 03/29/2018 AFSANEH SMITH, ALON Sanderson Ot 786.2 COUGH 03/29/2018 ZIA HENDERSON MD Ot 244.9 HYPOTHYROIDISM NOS 03/29/2018 ZIA HENDERSON MD Ot 272.4 HYPERLIPIDEMIA NEC/NOS 03/29/2018 ZIA HENDERSON MD Ot 401.9 HYPERTENSION NOS 03/29/2018 ZIA HENDERSON MD Ot 414.00 CORON ATHEROSCLER NOS TYPE VESSEL, NATIV 03/29/2018 ZIA HENDERSON MD Ot 272.4 HYPERLIPIDEMIA NEC/NOS 03/29/2018 ZIA HENDERSON MD Ot 401.9 HYPERTENSION NOS 03/29/2018 ZIA HENDERSON MD Ot 414.00 CORON ATHEROSCLER NOS TYPE VESSEL, NATIV 03/29/2018 ZIA HENDERSON MD Ot 433.10 CAROTID ARTERY OCCLUSION W O CEREBRAL IN 03/29/2018 GEO PASCAL Ot 202.80 OTH LYMPHOMAS EXTRANODAL SOLID ORGAN U 03/29/2018 GEO PASCALP Ot 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 03/29/2018 GEO PASCALP Ot 585.3 CHRONIC KIDNEY DISEASE, STAGE III (MODER 03/29/2018 GEO PASCALP Ot 714.0 RHEUMATOID ARTHRITIS 03/29/2018 GEO PASCALP Ot V58.69 OTH MED,LT,CURRENT USE 03/29/2018 GEO PASCAL Ot V87.41 PERSONAL HISTORY OF ANTINEOPLASTIC CHEMO 03/29/2018 AFSANEH SMITH, ALON Sanderson Ot 486 PNEUMONIA, ORGANISM NOS 03/29/2018 ALON SHELBY MD Ot 786.2 COUGH 03/29/2018 ZIA HENDERSON MD Ot 272.4 HYPERLIPIDEMIA NEC/NOS 03/29/2018 ZIA HENDERSON MD Ot 401.9 HYPERTENSION NOS 03/29/2018 ZIA HENDERSON MD Ot 414.00 CORON ATHEROSCLER NOS TYPE VESSEL, NATIV 03/29/2018 ZIA HENDERSON MD Ot 433.10 CAROTID ARTERY OCCLUSION W O CEREBRAL IN 03/29/2018 GEO PASCAL Ot C85.90 NON-HODGKIN LYMPHOMA, UNSPECIFIED, UNSPE 03/29/2018 GEO PASCAL Ot D80.1 NONFAMILIAL HYPOGAMMAGLOBULINEMIA 03/29/2018 GEO APSCALP Ot M06.9 RHEUMATOID ARTHRITIS, UNSPECIFIED 03/29/2018 GEO PASCALP Ot N18.3 CHRONIC KIDNEY DISEASE, STAGE 3 (MODERAT 03/29/2018 GEO PASCAL Ot Z79.899 OTHER PRISON (CURRENT) DRUG THERAPY 03/29/2018 GEO PASCALP Ot Z92.21 PERSONAL HISTORY OF ANTINEOPLASTIC CHEMO 03/29/2018 ZIA HENDERSON MD Ot E78.5 HYPERLIPIDEMIA, UNSPECIFIED 03/29/2018 ZIA HENDERSON MD Ot I10 ESSENTIAL (PRIMARY) HYPERTENSION 03/29/2018 SANTIAGO SMITH, ZIA Sanderson Ot I25.10 ATHSCL HEART DISEASE OF [place] CORONARY 03/29/2018 SANTIAGO SMITH, ZIA Sanderson Ot I65.23 OCCLUSION AND STENOSIS OF BILATERAL SEAY 03/29/2018 AFSANEH SMITH, ALON Sanderson Ot N64.4 MASTODYNIA 03/29/2018 FLORA MALIK Ot E78.4 OTHER HYPERLIPIDEMIA 03/29/2018 SHANE BAUGH, FLORA Huff Ot I10 ESSENTIAL (PRIMARY) HYPERTENSION 03/29/2018 SHANE BAUGH, FLORA K Ot I25.10 ATHSCL HEART DISEASE OF [place] CORONARY 03/29/2018 SHANE BAUGH, FLORA K Ot I65.23 OCCLUSION AND STENOSIS OF BILATERAL SEAY 03/29/2018 Ot E78.4 OTHER HYPERLIPIDEMIA 03/29/2018 Ot I10 ESSENTIAL ( PRIMARY) HYPERTENSION 03/29/2018 Ot I25.10 ATHSCL HEART DISEASE OF [place] CORONARY 03/29/2018 Ot I65.23 OCCLUSION AND STENOSIS OF BILATERAL SEAY 03/29/2018 SEBAS KENNEDY Ot C85.90 NON-HODGKIN LYMPHOMA, UNSPECIFIED, UNSPE 03/29/2018 SEBAS KENNEDY Ot D80.1 NONFAMILIAL HYPOGAMMAGLOBULINEMIA 03/29/2018 SEBAS KENNEDY Ot M06.9 RHEUMATOID ARTHRITIS, UNSPECIFIED 03/29/2018 SEBAS KENNEDY Ot N18.3 CHRONIC KIDNEY DISEASE, STAGE 3 (MODERAT 03/29/2018 SEBAS KENNEDY Ot Z79.899 OTHER PRISON (CURRENT) DRUG THERAPY 03/29/2018 MARTY CANTU MD Ot C85.90 NON-HODGKIN LYMPHOMA, UNSPECIFIED, UNSPE 03/29/2018 MARTY CANTU MD Ot D80.1 NONFAMILIAL HYPOGAMMAGLOBULINEMIA 03/29/2018 MARTY CANTU MD Ot M06.9 RHEUMATOID ARTHRITIS, UNSPECIFIED 03/29/2018 MARTY CANTU MD Ot N18.3 CHRONIC KIDNEY DISEASE, STAGE 3 (MODERAT 03/29/2018 MARTY CANTU MD Ot 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 Procedures Code Description Performed By Performed On 81.54 08/08/2012 00.40 PROCEDURE ON SINGLE VESSEL 12/03/2013 00.66 PERCUTANEOUS TRANSLUMINAL CORONARY ANGIO 12/03/2013 88.49 CONTRAST ARTERIOGRAM NEC 12/03/2013 88.56 CORONAR ARTERIOGR-2 CATH 12/03/2013 Results Test Result Range Complete blood [...] blood smear finding identification by light microscopy [facility] PT panel in platelet poor [...] 09/28/17 10:18 Myoglobin, serum 247.8 ng/mL 10.0-92.0 Serum or plasma troponin i.cardiac measurement (mass/volume) - 09/28/17 15:25 Serum or plasma troponin i.cardiac measurement (mass/volume) 0.70 ng /mL <0.30 Complete blood count (CBC) with automated white blood cell (WBC) differential - 05/17/18 23:25 Blood leukocytes automated count (number/volume) 8.9 10*3/uL 4.3-11.0 Blood erythrocytes automated count (number/volume) 5.07 10*6/uL 4.35-5.85 Venous blood hemoglobin measurement (mass/volume) 15.8 g/dL 11.5-16.0 Blood hematocrit (volume fraction) 43 % 35-52 Automated erythrocyte mean corpuscular volume 84 [foz_us] 80-99 Automated erythrocyte mean corpuscular hemoglobin (mass per erythrocyte) 31 pg 25-34 Automated erythrocyte mean corpuscular hemoglobin concentration measurement ( mass/volume) 37 g/dL 32-36 Automated erythrocyte distribution width ratio 14.3 % 10.0-14.5 Automated blood platelet count (count/volume) 410 10*3/uL 130-400 Automated blood platelet mean volume measurement 10.3 [foz_us] 7.4-10.4 Automated blood neutrophils/100 leukocytes 46 % 42-75 Automated blood lymphocytes/100 leukocytes 39 % 12-44 Blood monocytes/100 leukocytes 14 % 0-12 Automated blood eosinophils/100 leukocytes 1 % 0-10 Automated blood basophils/100 leukocytes 1 % 0-10 Blood neutrophils automated count (number/volume) 4.1 10*3 1.8-7.8 Blood lymphocytes automated count (number/volume) 3.4 10*3 1.0-4.0 Blood monocytes automated count (number/volume) 1.3 10*3 0.0-1.0 Automated eosinophil count 0.1 10*3/uL 0.0-0.3 Automated blood basophil count (count/volume) 0.1 10*3/uL 0.0-0.1 Comprehensive metabolic panel - 05/17/18 23:25 Serum or plasma sodium measurement (moles/volume) 135 mmol/L 135-145 Serum or plasma potassium measurement (moles/volume) 2.7 mmol/L 3.6-5.0 Serum or plasma chloride measurement (moles/volume) 100 mmol/L 98-107 Carbon dioxide 17 mmol/L 21-32 Serum or plasma anion gap determination (moles/volume) 18 mmol/L 5-14 Serum or plasma urea nitrogen measurement (mass/volume) 49 mg/dL 7-18 Serum or plasma creatinine measurement (mass/volume) 2.16 mg/dL 0.60-1.30 Serum or plasma urea nitrogen/creatinine mass ratio 23 NRG Serum or plasma creatinine measurement with calculation of estimated glomerular filtration rate 23 NRG Serum or plasma glucose measurement (mass/volume) 118 mg/dL 70-105 Serum or plasma calcium measurement (mass/volume) 10.1 mg/dL 8.5-10.1 Serum or plasma total bilirubin measurement (mass/volume) 0.5 mg/dL 0.1-1.0 Serum or plasma alkaline phosphatase measurement (enzymatic activity/volume) 61 U/L 40-136 Serum or plasma aspartate aminotransferase measurement (enzymatic activity/ volume) 50 U/L 5-34 Serum or plasma alanine aminotransferase measurement (enzymatic activity/volume ) 26 U/L 0-55 Serum or plasma protein measurement (mass/volume) 7.3 g/dL 6.4-8.2 Serum or plasma albumin measurement (mass/volume) 4.6 g/dL 3.2-4.5 Magnesium - 05/17/18 23:25 Magnesium 2.3 mg/dL 1.8-2.4 Serum or plasma creatine kinase measurement (enzymatic activity/volume) - 05/17 23:25 Serum or plasma creatine kinase measurement (enzymatic activity/volume) 387 U/L 29-168 Serum or plasma amylase measurement (enzymatic activity/volume) - 05/17/18 23: 25 Serum or plasma amylase measurement (enzymatic activity/volume) 85 U /L 25-125 Lipase - 05/17/18 23:25 Lipase 59 U/L 8-78 Encounters ACCT No. Visit Date/Time Discharge Status Pt. Type Provider Facility Loc./Unit Complaint [id number] 03/25/2014 12:16:10 03/25/2014 23:59:59 CLS Outpatient Scottie Reynolds [facility] 01/30/2015 10:16:44 ACT Document Registration [id number] 05/07/2018 16:43:00 05/07/2018 23:59:59 CLS Preadmit FLORA MALIK [facility] CARD HTN,CAD, HYPERLIPIEDEMIA,DYSPNEA [id number] 05/07/2018 16:26:00 05/07/2018 23:59:59 CLS Preadmit FLORA MALIK [facility] CARD HTN,CAD, HYPERLIPIDEMIA,DYSPNEA [id number] 05/04/2018 08:35:00 05/04/2018 23:59:59 CLS Outpatient SEBAS KENNEDY [facility] ONC [id number] 11/23/2017 00:08:00 11/23/2017 23:59:59 CLS Preadmit MARTY CANTU MD [facility] ONC [id number] 08/24/2017 08:03:00 11/22/2017 00:01:00 DIS Outpatient MARTY CANTU MD [facility] ONC [id number] 09/28/2017 12:13:00 09/28/2017 21:12:00 DIS Outpatient ZIA HENDERSON MD [facility] CATH CATH [id number] 07/28/2017 09:20:00 08/23/2017 13:19:00 DIS Outpatient SEBAS KENNEDY [facility] ONC [id number] 06/30/2017 09:28:00 07/06/2017 00:01:00 DIS Outpatient MARYT CANTU MD [facility] ONC [id number] 09/22/2016 00:12:00 09/22/2016 23:59:59 CLS Preadmit SEBAS KENNEDY [facility] ONC OV [id number] 09/16/2016 10:30:00 09/21/2016 00:01:00 DIS Outpatient SEBAS KENNEDY [facility] ONC OV [id number] 06/10/2016 09:29:00 06/16/2016 00:01:00 DIS Outpatient SEBAS KENNEDY [facility] ONC OV [id number] 03/25/2016 09:36:00 03/25/2016 23:59:59 CLS Outpatient FLORA MALIK [facility] CARD CAD,HTN,HLP, CAROTID ARTERY STENOSIS [id number] 10/22/2015 13:24:00 01/07/2016 00:01:00 DIS Outpatient SEBAS KENNEDY [facility] ONC OV [id number] 08/12/2015 10:28:00 10/08/2015 00:01:00 DIS Outpatient SEBAS KENNEDY [facility] ONC OV [id number] 06/05/2015 09:44:00 06/11/2015 00:01:00 DIS Outpatient SEBAS KENNEDY [facility] ONC OV [id number] 05/20/2015 13:35:00 05/20/2015 23:59:59 CLS Outpatient ALON SHELBY MD [facility] RAD RT BREAST PAIN NODULAR AREA RT BREAST [id number] 04/10/2015 10:00:00 04/10/2015 23:59:59 CLS Outpatient ZIA HENDERSON MD [facility] LAB [id number] 04/10/2015 09:57:00 04/10/2015 23:59:59 CLS Outpatient GEO PASCAL [facility] ONC [id number] 01/30/2015 10:16:00 02/25/2015 00:01:00 DIS Outpatient SEBAS KENNEDY [facility] ONC OV [id number] 01/02/2015 09:45:00 01/08/2015 00:01:00 DIS Outpatient SEBAS KENNEDY [facility] ONC OV [id number] 01/02/2015 10:15:00 01/02/2015 23:59:59 CLS Outpatient ZIA HENDERSON MD [facility] LAB HYPERLIPIDEMIA, CAD, HTN [id number] 11/19/2014 07:51:00 11/19/2014 23:59:59 CLS Outpatient ZIA HENDERSON MD [facility] CARD CAD,REYNA,HTN,HLP [id number] 11/07/2014 09:53:00 11/07/2014 23:59:59 CLS Outpatient GEO PASCAL MANAGER SOFTWARE [facility] ONC [id number] 11/03/2014 12:02:00 11/03/2014 23:59:59 CLS Outpatient ALON SHELBY MD [facility] RAD PNEUMONIA,COUGH [id number] 10/10/2014 12:23:00 10/10/2014 23:59:59 CLS Outpatient ZIA HENDERSON MD [facility] LAB [id number] 09/29/2014 10:39:00 09/29/2014 23:59:59 CLS Outpatient ALON SHELBY MD [facility] RAD CHRONIC COUGH [id number] 08/29/2014 07:09:00 08/29/2014 08:00:00 DIS Emergency LUCY CHEEK MD [facility] ER FALL/RIGHT ARM LAC [id number] 04/04/2014 11:49:00 06/26/2014 00:01:00 DIS Outpatient SEBAS KENNEDY [facility] ONC OV [id number] 06/20/2014 10:08:00 06/20/2014 23:59:59 CLS Outpatient ALON SHELBY MD [facility] RAD SCREENING [id number] 04/04/2014 09:48:00 04/04/2014 23:59:59 CLS Outpatient GEO PASCAL MANAGER SOFTWARE [facility] ONC [id number] 01/08/2014 11:21:00 01/20/2014 12:21:00 DIS Outpatient ZIA HENDERSON MD [facility] CR STABLE ANGINA, AMI, CABGX3 [id number] 12/03/2013 13:00:00 12/06/2013 09:30:00 DIS Inpatient ZIA HENDERSON MD [facility] CSD CHEST PAIN [id number] 11/04/2013 22:00:00 11/04/2013 23:59:59 CLS Outpatient ZIA HENDERSON MD [facility] CATH CHEST PAIN [id number] 09/12/2013 11:25:00 10/10/2013 00:01:00 DIS Outpatient SEBAS KENNEDY [facility] ONC OV [id number] 08/09/2013 10:10:00 08/09/2013 23:59:59 CLS Outpatient GEO PASCAL MANAGER SOFTWARE [facility] ONC [id number] 07/09/2013 13:57:00 07/11/2013 00:01:00 DIS Outpatient SEBAS KENNEDY [facility] ONC OV [id number] 06/19/2013 12:53:00 06/19/2013 23:59:59 CLS Outpatient KEL CHAVEZ V GREEN JOBS TRAINER [facility] LAB [id number] 06/14/2013 10:08:00 06/14/2013 23:59:59 CLS Outpatient GEO PASCAL S MANAGER SOFTWARE [facility] ONC [id number] 04/12/2013 10:00:00 04/12/2013 23:59:59 CLS Outpatient GEO PASCAL S MANAGER SOFTWARE [facility] ONC [id number] 12/21/2012 09:20:00 03/07/2013 00:01:00 DIS Outpatient SEBAS KENNEDY [facility] ONC OV [id number] 02/15/2013 09:41:00 02/15/2013 23:59:59 CLS Outpatient ITALO ALVAREZ MD [facility] RAD HEMATURIA,RECURRING UTI [id number] 05/17/2018 23:50:00 ACT Outpatient SANTIAGO SMITH, ZIA Sanderson [facility] CATH CHEST PAIN [id number] 04/06/2016 14:22:00 Document Registration [id number] 05/20/2015 13:32:00 Document Registration [id number] 08/08/2012 06:04:00 Document Registration [id number] 08/03/2012 10:18:00 Document Registration [id number] 07/27/2012 10:36:00 Document Registration [id number] 06/29/2012 10:33:00 Document Registration [id number] 02/06/2012 13:47:00 Document Registration [id number] 01/16/2012 09:16:00 Document Registration [id number] 11/18/2011 10:09:00 Document Registration [id number] 11/10/2011 14:21:00 Document Registration [id number] 11/10/2011 07:26:00 Document Registration [id number] 11/04/2011 10:32:00 Document Registration [id number] 09/23/2011 08:04:00 Document Registration [id number] 08/05/2011 10:35:00 Document Registration [id number] 05/25/2011 16:12:00 Document Registration [id number] 03/25/2011 08:10:00 Document Registration [id number] 01/17/2011 13:25:00 Document Registration [id number] 01/17/2011 09:35:00 Document Registration [id number] 09/29/2010 05:47:00 Document Registration [id number] 09/24/2010 10:17:00 Document Registration [id number] 09/13/2010 12:02:00 Document Registration [id number] 07/16/2010 10:38:00 Document Registration [id number] 06/11/2010 10:28:00 Document Registration [id number] 03/12/2010 12:41:00 Document Registration
[2018-05-18] VITALS (17 sets, daily range): BP systolic 75–120; BP diastolic 55–70
[2018-05-18] MEDS ORDERED: MIDAZOLAM 5 MG/5 ML (VERSED) VIAL ONE (00:02)
[2018-05-18] MEDS ORDERED: fentaNYL INJECTION 100 MCG/2 ML AMP ONE (00:02)
[2018-05-18] MEDS ORDERED: diphenhydrAMINE 50 MG/ML INJ (BENADRYL) ONE (00:02)
[2018-05-18] MEDS ORDERED: methylPREDNISolone 125 MG (Solu-MEDROL) VIAL ONE (00:02)
[2018-05-18] MEDS ORDERED: morphine INJ 10 MG/ML 1ML (SYR OR VIAL) IVP STA (00:07)
[2018-05-18] MEDS ORDERED: POTASSIUM CL 10MEQ/50ML IVPB 100 ML IV ONE (00:25)
[2018-05-18] MEDS ORDERED: HEParin 1000 UNIT/ML (10ML VIAL) FOR BOLUS ONE (00:29)
[2018-05-18] MEDS ORDERED: EPTIFIBATIDE BOLUS 10 ML IV ONE (00:38)
[2018-05-18 00:40] LABS: PROTHROMBIN TIME PATIENT 13.2 SEC (12.2-14.7)
[2018-05-18] MEDS ORDERED: niCARdipine 25 MG/10 ML (CARDENE) AMP IV ONE (00:41)
[2018-05-18] MEDS ORDERED: NS (IVPB) 250 ML ONE (00:42)
[2018-05-18] MEDS ORDERED: PATIENT MAY USE OWN MEDS, ALL PO SCH (01:15)
[2018-05-18] MEDS ORDERED: CLOPIDOGREL 300 MG (PLAVIX) TABLET PO ONE (01:17)
--- NOTE | 2018-05-18 01:26 | Cardiac Cath Report ---
Cardiac Cath Report Physician (s)/Knot Borer (s) Physician ZIA HENDERSON MD Pre-Procedure Diagnosis Pre-Procedure Diagnosis: acute myocardial infarction Post-Procedure Note Procedure Start Date: May 18, 2018 Name of Procedure: Left hear catheterization, vein graft angiogram Thrombectomy and balloon angioplasty to the vein graft to the second obtuse marginal branch Findings/Procedure Note PROCEDURE NOTE: 68 years old lady at admitted with acute ST elevation myocardial infarction in the inferior wall, has been having nausea and vomiting for about a week. Started on IV fluid. Given aspirin, Plavix and heparin in the emergency room After explaining the procedure to the patient, all pros and cons were explained , all questions were answered. The patient signed the consent and then she was placed on the cardiac catheterization laboratory. Groin was prepped SL fashion local anesthesia was used. Sheath placed in the artery. Nicole Left catheter was advanced to the left corner system, angiogram was done with 1 view then I proceeded with the SR guide advanced to the 2 vein graft and angiogram was done then I evaluated the right coronary artery. Patient has total occlusion of the vein graft to the second obtuse marginal branch with heavy thrombus burden. Patient was given additional 3000 units of heparin which make her total of 8000 units of heparin then started on an Integrilin double bolus, I advanced a BMW wire through the vein graft and parked distally in the small branches of the second obtuse marginal branch then I advanced extraction catheter, door to extraction catheter with establish flow was 72 minutes, patient had slow flow distally with occlusion of the branches I advanced multiple balloon inflation using 3.015 mm balloon which improved the flow slightly. There were no further clots noted in the vein graft and there were significant clot burden in the extraction catheter was retrieved, I used Cardene injection, some improvement of the flow, EKG has improved. The Nicole right guide was advanced to the left ventricular cavity and pressure was measured then pullback LV to aorta was done. At the end of the procedure the sheath was removed. Closure device Was used FINDINGS: Hemodynamics LV 101/12, end-diastolic pressure of 12 Aorta 101/47 mean of 71 ANATOMY: Left Main has moderate disease Left Anterior Descending has severe disease, known to have a KAPLAN to the LAD that was not evaluated to development them out of contrast used Left Circumflex has severe disease, the vein graft to the first obtuse marginal branch is patent, the second vein graft is a vein graft to the second obtuse marginal branch that was occluded and have heavy thrombus burden, successful extraction catheter and removal of thrombus with thrombectomy then balloon angioplasty to the cantwell second obtuse marginal branch with some improvement of the flow, there is significant thrombus burden in the small vessels that improved slightly after Cardene injection Right Coronory Artery is moderate in size, severe disease distally, giving collateral filling the second obtuse marginal branch LV Gram was not done pressure was measured CONCLUSION: 1. Acute ST elevation myocardial infarction the inferior wall with successful thrombectomy of the vein graft to the second obtuse marginal branch and balloon angioplasty using 3.015 mm with multiple inflation then Cardene injection with improvement in the flow, still have significant thrombus burden in the small vessel with slow flow 2. Patent vein graft to the first obtuse marginal branch 3. Right coronary artery has moderate disease at the midportion, severe disease distally which is giving collaterals to the second obtuse marginal branch 4. Patient is known to have patent KAPLAN to LAD that was not evaluated to limit the amount of contrast exposure DISCUSSION AND RECOMMENDATION: continue with aggressive hydration, continue with aggressive anticoagulation and aggressive statin therapy and monitor closely Anesthesia Type: Conscious Sedation Estimated blood loss (mL): 30 ml Contrast Amount: 83 ml Total Radiation Dose: 771 mGy Post-Procedure Diagnosis Post-operative diagnosis: Acute ST elevation micrograms infarction Coronary artery disease Hypertension Hyperlipidemia ZIA HENDERSON MD May 18, 2018 01:26
[2018-05-18] MEDS ORDERED: ONDANSETRON 4 MG/2 ML (SDV) Z0FRAN IVP PRN (01:45)
[2018-05-18] MEDS ORDERED: NS IV 1000 ML 1,000 ML ONE (02:00)
[2018-05-18] MEDS: NS IV 1000 ML 1,000 ML IV SCH ×3 (02:05→23:58)
--- NOTE | 2018-05-18 02:42 | ED Chest Pain ---
General Chief Complaint: Chest Pain Stated Complaint: ACUTE [place] Nursing Triage Note: chest pain Nursing Sepsis Screen: No Definite Risk Source: patient Exam Limitations: no limitations History of Present Illness Date Seen by Provider: May 17, 2018 Time Seen by Provider: 23:20 Initial Comments PT ARRIVES VIA POV FROM HOME C/O CHEST PAIN --BEGAN 15 MINUTES PRIOR TO ARRIVAL, WHILE LAYING IN BED, TRYING TO GO TO SLEEP STATES SHE COUGHED 3 TIMES AND THEN HER CHEST STARTED HURTING RATES PAIN 6-7/10 AT WORST, IS 5/10 NOW NOTHING WORSENS OR IMPROVES PAIN PAIN IS IN CENTER OF CHEST, AND WAS RADIATING INTO BACK AND HER EARS FELT TIGHT. STATES DOES NOT HAVE PAIN IN BACK NOW, BUT EARS STILL FEEL TIGHT PT STATES SHE HAS HAD TX X 3 AND THIS DOES NOT FEEL THE SAME. PT HAS HAD 3 VESSEL CABG 2013, AND STENT X 1 09/2017 + NAUSEA, NO VOMITING NO SWEATS NO SWELLING IN LEGS/ FEET OR PAIN IN CALVES HAS SLIGHT SHORTNESS OF BREATH PT STATES SHE HAS HAD "THE FLU" SINCE MONDAY NIGHT 05/13/18--HAS HAD NAUSEA/ VOMITING/DIARRHEA NO VOMITING TODAY, HAS HAD DIARRHEA X 3 TODAY. NO BLACK/BLOODY/TARRY STOOLS NO ABDOMINAL PAIN NO FEVER HAS BEEN URINATING BUT NOT MUCH REPEATS "I KNOW I'M DEHYDRATED" PT STATES SHE WORKED ALL DAY TODAY BUT "FELT EXHAUSTED" WENT TO [facility] AT [facility] TODAY "BECAUSE SHE JUST FELT HORRIBLE"--TIRED, NAUSEATED STATES SHE HAS NOT TAKEN HER MEDICATIONS SINCE MONDAY BECAUSE SHE WAS SICK PCP: DR. GARCIA SENIOR ENVIRONMENTAL CONSULTANT: DR. HENDERSON Allergies and Home Medications Allergies Coded Allergies: Iodinated Contrast- Oral and IV Dye (Verified Allergy, Intermediate, hives , 11/04/13) Sulfa (Sulfonamide Antibiotics) (Verified Allergy, Unknown, 10/21/08) ciprofloxacin (Verified Allergy, Unknown, 10/21/08) guaifenesin (Verified Allergy, Unknown, 10/21/08) hydroxychloroquine (Verified Allergy, Unknown, 10/21/08) iopamidol (Verified Allergy, Unknown, 10/21/08) nitrofurantoin (Verified Allergy, Unknown, 10/21/08) Home Medications Amlodipine Besylate 5 Mg Tablet, 5 MG PO DAILY, (Reported) Aspirin 81 Mg Tablet., 81 MG PO HS, (Reported) Atorvastatin Calcium 80 Mg Tablet, 80 MG PO HS Prescribed by: ZIA HENDERSON on 09/28/171644 Cholecalciferol (Vitamin D3) 2,000 Unit Capsule, 2,000 UNIT PO DAILY, (Reported) Citalopram Hydrobromide 10 Mg Tablet, 10 MG PO DAILY, (Reported) Fenofibrate,Micronized 67 Mg Capsule, 67 MG PO HS, (Reported) Fish Oil/Dha/Epa 1 Each Capsule, 1,200 MG PO BID, (Reported) Levothyroxine Sodium 88 Mcg Tablet, 88 MCG PO DAILY, (Reported) Liraglutide 0.6 Mg/0.1 Ml Pen.injctr, 0.9-1.2 MG SC HS, (Reported) Loratadine 10 Mg Tablet, 10 MG PO DAILY PRN for ALLERGIES, (Reported) Metoprolol Succinate 50 Mg Tab.er.24h, 50 MG PO HS, (Reported) Ticagrelor 90 Mg Tablet, 90 MG PO BID Prescribed by: ZIA HENDERSON on 09/28/171644 Patient Home Medication List Home Medication List Reviewed: Yes Review of Systems Review of Systems Constitutional: see HPI; No chills, No diaphoresis, No dizziness, No fever; malaise, weakness EENTM: No Symptoms Reported Respiratory: Shortness of Air (SLIGHT) Cardiovascular: See HPI, Chest Pain; Denies Edema, Denies Irregular Heart Rate , Denies Lightheadedness, Denies Palpitations, Denies Syncope Gastrointestinal: See HPI; Denies Abdominal Pain; Diarrhea, Nausea Genitourinary: See HPI Musculoskeletal: see HPI Skin: no symptoms reported Psychiatric/Neurological: No Symptoms Reported Endocrine: No Symptoms Reported Hematologic/Lymphatic: No Symptoms Reported Past [id number]-Udyycg-Zbqhsj Hx Patient Social History Alcohol Use: Denies Use Number of Drinks Today: FF Alcohol Beverage of Choice: Vodka Recreational Drug Use: No Smoking Status: Former Smoker Type Used: Cigarettes 2nd Hand Smoke Exposure: No Recent Foreign Travel: No Contact w/Someone Who Travel: No Recent Infectious Disease Expo: No Recent Hopitalizations: No Immunizations Up To Date Tetanus Booster (TDap): Unknown Date of Pneumonia Vaccine: Aug 09, 2017 Date of Influenza Vaccine: Apr 26, 2018 Seasonal Allergies Seasonal Allergies: No Past Medical History Surgeries: Yes (SPLENECTOMY FOR LYMPHOMA; FIORDALIZA; FOOT SURGERY; BILATERAL TOTAL KNEE REPLACEMENTS; RUPTURED COLON REPAIRED; MOH'S SURGERY ON NOSE FOR SKIN CANCER; SINUS SX,; 3 VESSEL CABG; CARDIAC CATHS WITH STENT X 09/2017; INCISIONAL HERNIA REPAIR) Abdominal, Cardiac, CABG, Coronary Stent, Gallbladder, Joint Replacement, Nose, Orthopedic Respiratory: No Cardiac: Yes (TRIPLE BYPASS 10/2013; CARDIAC CATHS WITH STENT X 1 09/2017; [place] X 3) Coronary Artery Disease, Heart Attack, Hypertension Neurological: No : No Reproductive Disorders: No 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 Genitourinary: No Gastrointestinal: Yes (GB REMOVED, INCISIONAL HERNIA'S; SPELENECTOMY FOR LYMPHOMA; COLON RESECTION FOR RUPTURE) Abdominal Hernia, Gall Bladder Disease Musculoskeletal: Yes Osteoporosis, Arthritis, Rheumatoid Arthritis Endocrine: Yes (AUTO IMMUNE DISORDER SEES DR VALDEZ) Hypothyroidsim HEENT: No Cancer: Yes (NONHODGKIN'S LYMPHOMA-NO TREATMENT SINCE 2001; S/P SPLENECTOMY AND CHEMOTHERAPY) Skin, Lymphoma Did You Recieve Any Treatments: Yes What Type of Treatment Did You: Chemotherapy, Surgical Intervention Psychosocial: No Integumentary: No Blood Disorders: No Adverse Reaction/Blood Tranf: No Family Medical History Cardiovascular disease G8 BROTHER FH: COPD (chronic obstructive pulmonary disease) 19 MOTHER FH: multiple myeloma 19 FATHER, Onset:63 Physical Exam Vital Signs Vital Signs - First Documented Capillary Refill : Less Than 3 Seconds Height, Weight, BMI Height: 5'4.00" Weight: 130lbs. 0.0oz. [id number]; 22.3 BMI Method:Stated General Appearance: No Apparent Distress, WD/WN, Anxious, Other (FULL MAKEUP) HEENT: PERRL/EOMI Neck: Full Range of Motion, Normal Inspection, Non Tender, Supple; No Carotid Bruit, No JVD Respiratory: Chest Non Tender, Normal Breath Sounds, No Accessory Muscle Use, No Respiratory Distress Cardiovascular: Regular Rate, Rhythm, No Edema, No JVD, No Murmur, Normal Peripheral Pulses Gastrointestinal: Non Tender, Soft Extremity: Normal Capillary Refill, Normal Inspection, Normal Range of Motion, Non Tender, No Calf Tenderness, No Pedal Edema Neurologic/Psychiatric: Alert, Oriented x3, No Motor/Sensory Deficits, juvenile counselor II- XII Norm as Tested Skin: Normal Color, Warm/Dry Progress/Results/Core Measures Results/Orders Lab Results Laboratory Tests Test 05/17/18 23:25 Range/Units White Blood Count 8.9 4.3-11.0 10^3/uL Red Blood Count 5.07 4.35-5.85 10^6/uL Hemoglobin 15.8 11.5-16.0 G/DL Hematocrit 43 35-52 % Mean Corpuscular Volume 84 80-99 FL Mean Corpuscular Hemoglobin 31 25-34 PG Mean Corpuscular Hemoglobin Concent 37 H 32-36 G/DL Red Cell Distribution Width 14.3 10.0-14.5 % Platelet Count 410 H 130-400 10^3/uL Mean Platelet Volume 10.3 7.4-10.4 FL Neutrophils (%) (Auto) 46 42-75 % Lymphocytes (%) (Auto) 39 12-44 % Monocytes (%) (Auto) 14 H 0-12 % Eosinophils (%) (Auto) 1 0-10 % Basophils (%) (Auto) 1 0-10 % Neutrophils # (Auto) 4.1 1.8-7.8 X 10^3 Lymphocytes # (Auto) 3.4 1.0-4.0 X 10^3 Monocytes # (Auto) 1.3 H 0.0-1.0 X 10^3 Eosinophils # (Auto) 0.1 0.0-0.3 10^3/uL Basophils # (Auto) 0.1 0.0-0.1 10^3/uL Prothrombin Time 13.2 12.2-14.7 SEC INR Comment 1.0 0.8-1.4 Activated Partial Thromboplast Time 26 24-35 SEC Sodium Level 135 135-145 MMOL/L Potassium Level 2.7 L 3.6-5.0 MMOL/L Chloride Level 100 98-107 MMOL/L Carbon Dioxide Level 17 L 21-32 MMOL/L Anion Gap 18 H 5-14 MMOL/L Blood Urea Nitrogen 49 H 7-18 MG/DL Creatinine 2.16 H 0.60-1.30 MG/DL Estimat Glomerular Filtration Rate 23 BUN/Creatinine Ratio 23 Glucose Level 118 H 70-105 MG/DL Calcium Level 10.1 8.5-10.1 MG/DL Corrected Calcium 8.5-10.1 MG/DL Magnesium Level 2.3 1.8-2.4 MG/DL Total Bilirubin 0.5 0.1-1.0 MG/DL Aspartate Amino Transf (AST/SGOT) 50 H 5-34 U/L Alanine Aminotransferase (ALT/SGPT) 26 0-55 U/L Alkaline Phosphatase 61 40-136 U/L Total Creatine Kinase 387 H 29-168 U/L Creatine Kinase MB 25.0 *H <6.6 NG/ML Myoglobin 441.0 H 10.0-92.0 NG/ML Troponin I < 0.30 <0.30 NG/ML B-Type Natriuretic Peptide 15.4 <100.0 PG/ML Total Protein 7.3 6.4-8.2 GM/DL Albumin 4.6 H 3.2-4.5 GM/DL Amylase Level 85 25-125 U/L Lipase 59 8-78 U/L My Orders Orders - DO LO DO Cbc With Automated Diff (05/17/18:) Magnesium (05/17/18:) Chest 1 View, Ap/Pa Only (05/17/18:) Ekg Tracing (05/17/18:) Cardiac Profile 1 (05/17/18:) Comprehensive Metabolic Panel (05/17/18 23:) Myoglobin Serum (05/17/18 23:) Protime With Inr (05/17/18:) Partial Thromboplastin Time (05/17/18:) O2 (05/17/18:) Monitor-Rhythm Ecg Trace Only (05/17/18 23:) Lipid Panel (05/18/18 06:00) Saline Lock/Iv-Start (05/17/18 23:19) Creatine Kinase (05/17/18 23:) Creatine Kinase Mb (05/17/18:) Lipase (05/17/18 23:) Amylase (05/17/18 23:) BNP (05/17/18 23:) Aspirin Chewable Tablet (Baby Aspirin Ch (05/17/18 23:45) Saline Lock/Iv-Start (05/17/18 23:33) Ns Iv 1000 Ml (Sodium Chloride 0.9%) (05/17/18 23:33) Morphine Injection (Morphine Injection (05/17/18 23:33) Morphine Injection (Morphine Injection (05/17/18 23:34) Ns Iv 1000 Ml (Sodium Chloride 0.9%) (05/17/18 23:34) Clopidogrel Tablet (Plavix Tablet) (05/17/18 23:45) Heparin (Bolus Per Protocol) (Heparin (B (05/17/18 23:42) Ondansetron Injection (Zofran Injectio (05/17/18 23:43) Medications Given in ED Current Medications Medications Dose Ordered Sig/Alyson Route Start Time Stop Time Status Last Admin Dose Admin Aspirin 324 mg ONCE ONCE PO 05/17/18 23:45 05/17/18 23:46 DC 05/17/18 23:41 324 MG Clopidogrel Bisulfate 300 mg ONCE ONCE PO 05/17/18 23:45 05/17/18 23:46 DC 05/17/18 23:51 300 MG Heparin Sodium (Porcine) HEPARIN BOLUS ACS PROTOC... 2342 ONCE IV 05/17/18 23:42 05/17/18 23:44 DC 05/17/18 23:51 5,000 UNIT Ondansetron HCl 4 mg STK-MED ONCE .ROUTE 05/17/18 23:43 05/17/18 23:45 DC 05/17/18 23:46 4 MG Sodium Chloride 1,000 ml @ 0 mls/hr Q0M ONCE IV 05/17/18 23:33 05/17/18 23:35 DC 05/17/18 23:41 0 MLS/HR Vital Signs/I&O 05/17/1818 05/17/18 23:18 23:18 23:18 Temp 98.1 Pulse 67 Resp 16 B/P (MAP) 94/70 (78) Pulse Ox 100 O2 Delivery Nasal Cannula Nasal Cannula Nasal Cannula O2 Flow Rate 2.00 2.0 2.0 Blood Pressure Mean: 80 Progress Progress Note : Progress Note PAIN EASED SLIGHTLY AT TIME OF TRANSFER TO RAMP AGENT NO DETERIORATION IN PT'S CONDITION DURING ER STAY Initial ECG Impression Date: May 17, 2018 Initial ECG Impression Time: 23:24 Initial ECG Rate: 71 Initial ECG Rhythm: Normal Sinus (STEMI-INFERIOR) Initial ECG Impression: Acute TX Initial ECG Comparisson: Changed EKG : EKG Time: 23:30 Rate: 73 Rhythm: Normal Sinus ECG Impression: Acute TX (INFERIOR) Diagnostic Imaging Comments CXR--NO ACUTE PROCESS, PENDING RADIOLOGIST REVIEW Reviewed: Reviewed by Me Departure Communication (Admissions) [id number]--SPOKE WITH DR. HENDERSON, WILL CALL IN RAMP AGENT TEAM [phone]--DR. HENDERSON HERE, CARE TURNED OVER TO HIM Impression Primary Impression: STEMI (ST elevation myocardial infarction) Additional Impressions: Acute renal insufficiency Dehydration Electrolyte imbalance RECENT GI ILLNESS Disposition: ADMITTED INPATIENT (TO RAMP AGENT) Condition: Stable Admissions Decision to Admit Reason: Admit from ER (General) (TO RAMP AGENT) Decision to Admit/Date: May 17, 2018 Time/Decision to Admit Time: 23:32 Departure-Patient Inst. Referrals: RAYMOND GARCIA DO (PCP) Primary Care Physician DO LO DO May 18, 2018 02:42
[2018-05-18 04:31] LABS: HEMOGLOBIN 12.7 G/DL (11.5-16.0); MEAN PLATELET VOLUME 10.2 FL (7.4-10.4); RED BLOOD COUNT 4.12 10^6/uL (4.35-5.85); RED CELL DISTRIBUTION WIDTH 13.9 % (10.0-14.5); WHITE BLOOD COUNT 9.6 10^3/uL (4.3-11.0)
[2018-05-18 04:52] LABS: ALBUMIN 3.6 GM/DL (3.2-4.5); BILIRUBIN,TOTAL 0.4 MG/DL (0.1-1.0); CALCIUM 8.4 MG/DL (8.5-10.1); CREATININE SERUM 1.5 MG/DL (0.60-1.30); POTASSIUM 3.6 MMOL/L (3.6-5.0); TOTAL PROTEIN 5.6 GM/DL (6.4-8.2)
[2018-05-18] MEDS ORDERED: NS IV 500 ML 500 ML IV ONE (06:15)
[2018-05-18] MEDS ORDERED: HEParin (CATH LAB) 1,000 ML IV ONE (07:28)
[2018-05-18] MEDS ORDERED: NS IV 1000 ML 1,000 ML IV ONE (07:28)
[2018-05-18] MEDS ORDERED: NITRO DRIP 25000 MCG/D5W 250 ML IV ONE (07:28)
[2018-05-18] MEDS ORDERED: LIDOCAINE 1% INJ 20 ML 20 ML VIAL INJ ONE (07:28)
--- NOTE | 2018-05-18 07:51 | Diagnostic Imaging Report ---
EXAMINATION: Chest radiograph, portable AP view. DATE: May 17, 2018 at 2330 hours. INDICATION: 68-year-old female, chest pain. COMPARISON: September 28, 2017. FINDINGS: There are median sternotomy wires. There are mediastinal surgical clips. Stable overall appearance of the cardiomediastinal silhouette. There is no identified pneumothorax. There is no large pleural effusion. There is no identified focal airspace consolidation. IMPRESSION: No identified acute cardiopulmonary abnormality. Dictated by: Dictated on workstation # [id number]
[2018-05-18] MEDS ORDERED: MAGN400T39 PO (09:11)
[2018-05-18] MEDS ORDERED: PANT40TA3 PO (09:11)
[2018-05-18] MEDS ORDERED: NITR0.4T42 PO (09:11)
[2018-05-18] MEDS ORDERED: SEMA0.25 SQ (09:11)
[2018-05-18] MEDS ORDERED: ATOR40TA70 PO (09:11)
[2018-05-18] MEDS ORDERED: CLOP75TA28 PO (09:11)
[2018-05-18] MEDS: OMEGA 3 (FISH OIL) 1000 MG CAP PO SCH ×2 (09:14→17:17)
[2018-05-18] MEDS: PANTOPRAZOLE 40 MG (PROTONIX) TAB PO SCH (09:16)
[2018-05-18] MEDS: ASPIRIN E.C. 81 MG (ECOTRIN) TAB PO SCH (09:17)
[2018-05-18] MEDS: CLOPIDOGREL 75 MG (PLAVIX) TABLET PO SCH (09:17)
[2018-05-18] MEDS: inSUlin ASPART (NovoLOG) 1 UNIT/0.01 ML (CHARGE PER UNIT) SC SCH ×3 (11:00→20:52)
--- NOTE | 2018-05-18 11:55 | Consultation-Hospitalist ---
HPI History of Present Illness: HPI/Chief Complaint Pt is a 68yoCF with a PMH of CAD s/p CABG, NIDDMII, and RA who presented to the ER on 05/17 evening due to dyspnea, fatigue, and persistent diarrhea. Upon arrival she was found to have STEMI on EKG and taken emergently to labor specialist where she underwent balloon angioplasty. I am consulted for medical management of DM. She states she has well controlled diabetes and she is not on insulin. She is feeling better today and has no complaints. Source: patient Exam Limitations: no limitations Date Seen 05/18/18 Attending Physician Martine Messer MD PCP Will Hatfield DO Referring Physician Date of Admission May 18, 2018 at 01:30 Home Medications & Allergies Home Medications Reviewed patient Home Medication Reconciliation performed by pharmacy medication reconciliations air and hydronic balancing technician and/or nursing. Patients Allergies have been reviewed. Allergies Allergies Coded Allergies Iodinated Contrast- Oral and IV Dye (Verified Allergy, Intermediate, hives, 11/04/13) Sulfa (Sulfonamide Antibiotics) (Verified Allergy, Unknown, 10/21/08) ciprofloxacin (Verified Allergy, Unknown, 10/21/08) guaifenesin (Verified Allergy, Unknown, 10/21/08) hydroxychloroquine (Verified Allergy, Unknown, 10/21/08) iopamidol (Verified Allergy, Unknown, 10/21/08) nitrofurantoin (Verified Allergy, Unknown, 10/21/08) Past Xntsclq-Ohxoou-Xjekqi Hx Past Med/Social Hx: Reviewed Nursing Past Med/Soc Hx Patient Social History Marrital Status: Employed/Student: employed Alcohol Use: Denies Use Number of Drinks Today: FF Alcohol Beverage of Choice: Vodka Recreational Drug Use: No Smoking Status: Former Smoker Type Used: Cigarettes 2nd Hand Smoke Exposure: No Physical Abuse Screen: No Sexual Abuse: No Recent Foreign Travel: No Contact w/other who traveled: No Recent Hopitalizations: No Recent Infectious Disease Expo: No Immunizations Up To Date Tetanus Booster (TDap): Unknown Date of Pneumonia Vaccine: Aug 09, 2017 Date of Influenza Vaccine: Apr 26, 2018 Seasonal Allergies Seasonal Allergies: No Past Medical History Surgeries: Abdominal, Cardiac, CABG, Coronary Stent, Gallbladder, Joint Replacement, Nose, Orthopedic Cardiac: Coronary Artery Disease, Heart Attack, Hypertension : No Reproductive: No Menopausal Gastrointestinal: Abdominal Hernia, Gall Bladder Disease Musculoskeletal: Osteoporosis, Arthritis, Rheumatoid Arthritis Endocrine: Hypothyroidsim Cancer: Skin, Lymphoma Did You Recieve Any Treatments: Yes What Type of Treatment Did You: Chemotherapy, Surgical Intervention History of Blood Disorders: No Adverse Reaction to Blood Andrade: No Family History Reviewed Nursing Family Hx Cardiovascular disease G8 BROTHER FH: COPD (chronic obstructive pulmonary disease) 19 MOTHER FH: multiple myeloma 19 FATHER, Onset:63 Review of Systems Constitutional: No chills, No fever EENTM: No blurred vision, No double vision, No nose congestion, No throat pain Respiratory: cough, dyspnea on exertion Cardiovascular: chest pain Gastrointestinal: diarrhea, nausea, vomiting Genitourinary: No dysuria, No frequency Musculoskeletal: No joint pain, No muscle pain Skin: No lesions, No rash Psychiatric/Neurological: Denies Headache, Denies Numbness, Denies Tingling Physical Exam Physical Exam Vital Signs Vital Signs - First Documented Capillary Refill : NONELess Than 3 Seconds Height, Weight, BMI Height: 5'4.00" Weight: 130lbs. 0.0oz. 58.336443mr; 22.0 BMI Method:Stated General Appearance: No Apparent Distress, WD/WN HEENT: PERRL/EOMI, Moist Mucous Membranes Neck: Non Tender, Supple Respiratory: Lungs Clear, No Respiratory Distress Cardiovascular: Regular Rate, Rhythm, No Murmur Gastrointestinal: Normal Bowel Sounds, Non Tender, Soft Extremity: Normal Capillary Refill, No Calf Tenderness Neurologic/Psychiatric: Alert, Oriented x3, Normal Mood/Affect Skin: Normal Color, Warm/Dry Results Results/Procedures Labs Laboratory Tests 05/17/18 23:25 05/18/18 04:24 Patient resulted labs reviewed. Assessment/Plan Assessment and Plan Assess & Plan/Chief Complaint STEMI Diagnosis/Problems Diagnosis/Problems (1) STEMI (ST elevation myocardial infarction) Status: Acute Assessment & Plan: Management per primary Cathed on 05/17 Continue ASA and Plavix Continue statin Qualifiers: Involved coronary artery: other coronary artery Qualified Codes: I21.29 - ST elevation (STEMI) myocardial infarction involving other sites (2) Non-insulin dependent type 2 diabetes mellitus Assessment & Plan: Hold home ozempic SSI (3) Acute renal insufficiency Status: Acute Assessment & Plan: Continue IVF given recent contrast exposure likely from hypovolemia from GI losses (4) Coronary artery disease Status: Acute Assessment & Plan: Cardiology managing Qualifiers: Coronary Disease-Associated Artery/Lesion type: bypass graft [place] vs. transplanted heart: [place] heart Associated angina: with unspecified angina Qualified Codes: I25.709 - Atherosclerosis of coronary artery bypass graft(s), unspecified, with unspecified angina pectoris Clinical Quality Measures AMI/AHF: ASA po Prior to arrival: No DVT/VTE Risk/Contraindication: Risk Factor Score Per Nursin RFS Level Per Nursing on Admit: 4+=Very High SANDY MOSS MD May 18, 2018 11:55
--- NOTE | 2018-05-18 13:50 | Cardiology Progress Note ---
Subjective Date Seen by Provider: May 18, 2018 Time Seen by Provider: 13:48 Subjective/Events-last exam patient is laying down in bed, feeling better, no further episodes of chest pain. No palpitation. Groin is healing well. Review of Systems General: No Chills, No Night Sweats, No Fatigue, No Malaise, No Appetite, No Other HEENT: No Head Aches, No Visual Changes, No Eye Pain, No Ear Pain, No Dysphasia , No Sinus Congestion, No Post Nasal Drip, No Sore Throat, No Other Pulmonary: No Dyspnea, No Cough, No Pleuritic Chest Pain, No Other Cardiovascular: No: Chest Pain, Palpitations, Orthopnea, Paroxysmal Noc. Dyspnea, Edema, Lt Headedness, Other Objective-Cardiology Exam Last Set of Vital Signs Vital Signs 05/18/18 05/18/18 03:00 08:00 Temp 98.2 Pulse 64 Resp 14 B/P (MAP) 92/57 (69) Capillary Refill : NONELess Than 3 Seconds I&O Intake and Output 05/18/18 00:00 Intake Total 1000 ml Balance 1000 ml IV Total 1000 ml General: Alert, Oriented X3, Cooperative, No Acute Distress HEENT: Atraumatic, PERRLA Neck: Supple, No JVD Lungs: Clear to Auscultation, Normal Air Movement Heart: Regular Rate, Normal S1, Normal S2, No Murmurs Abdomen: Normal Bowel Sounds, Soft, No Tenderness, No Hepatosplenomegaly, No Masses Extremities: No Clubbing, No Cyanosis, No Edema, Normal Pulses, No Tenderness/ Swelling Skin: No Rashes, No Breakdown, No Significant Lesion Neuro: Normal Gait, Normal Speech, Strength at 5/5 X4 Ext, Normal Tone, Sensation Intact Psych/Mental Status: Mental Status NL, Mood NL Results Lab Laboratory Tests 05/17/18 23:25 05/18/18 04:24 A/P-Cardiology Admission Diagnosis Acute myocardial infarction Coronary artery disease Hypertension Hyperlipidemia Assessment/Plan Acute myocardial infarction the inferior wall, status post cardiac catheterization thrombectomy to the vein graft. Good results. Coronary artery disease, history of CABG [address] valerio in October 2013, had an acute MT in November 2013 involving the inferior wall underwent emergency cardiac catheterization with thrombectomy of the vein graft to the circumflex artery then angioplasty with the 2.5 balloon. had another myocardial infarction on May 17, 2018 underwent emergency cardiac catheterization with occlusion of the vein graft to the second obtuse marginal branch, underwent thrombectomy then balloon angioplasty. There was slow flow at the distal portion. EKG has improved, patient is chest pain-free. The artery is fairly small. I will continue maximizing medical therapy and monitor. Hypertension, currently borderline hypotension, receiving IV fluid, continue to monitor Hyperlipidemia, maintained on Lipitor 40 mg daily, continue to monitor Mild carotid stenosis, continue to monitor carotid artery Chronic renal insufficiency, renal function improving with aggressive hydration. Continue to monitor History of non-Hodgkin's lymphoma, history of splenectomy and chemotherapy finished chemotherapy in 2002 as been in remission followed by Dr. Zamorano History of basal cell carcinoma of the nose underwent reconstructive surgery, followed by Dr. Zamorano Hypothyroidism, followed and managed by primary care physician History of hypogammaglobulinemia receiving Gammagrad monthly and followed by Dr. Zamorano Clinical Quality Measures AMI/AHF: ASA po Prior to arrival: No DVT/VTE Risk/Contraindication: Risk Factor Score Per Nursin RFS Level Per Nursing on Admit: 4+=Very High ZIA HENDERSON MD May 18, 2018 13:50
[2018-05-18] MEDS ORDERED: NS IV 1000 ML 1,000 ML IV SCH (17:00)
[2018-05-18 19:00] LABS: BILIRUBIN,URINE NEGATIVE (NEGATIVE); CLARITY,URINE CLEAR; COLOR,URINE YELLOW; GLUCOSE, URINE (UA) NEGATIVE (NEGATIVE); KETONES,URINE NEGATIVE (NEGATIVE); LEUKOCYTE ESTERASE ,URINE NEGATIVE (NEGATIVE); NITRITE,URINE NEGATIVE (NEGATIVE); PH,URINE 6 (5-9); PROTEIN,URINE NEGATIVE (NEGATIVE); UROBILINOGEN,URINE NORMAL (NORMAL)
[2018-05-18 19:06] LABS: SQUAMOUS EPITHELIAL CELL,UR 0-2 /HPF
--- NOTE | 2018-05-18 19:35 | Consultation ---
History of Present Illness History of Present Illness Patient Consulted On(paul/time) 05/18/18 19:29 Date Seen by Provider: May 18, 2018 Time Seen by Provider: 19:29 Reason for Visit: acute myocardial infarction History of Present Illness Ms. Costa is a 68 yo female with CAD s/p CABG and stents, hypogammaglobulinemia secondary to multiple factors, and remote h/o DLBCL. She was admitted last night after presenting to the ED with severe substernal chest pain radiating to her back. She was found to have a STEMI and was brought to the cardiac catheterization technologist, where she was found to have acute thrombosis of the venous graft from the LCX to OM2. She had a thrombectomy and balloon angioplasty successfully completed. I am consulted for management of her chronic immunodeficiency and evaluation of her history of malignancy. Patient feels well this evening and has no complaints except for increased urinary frequency and an episode of near urinary incontinence due to the amount of IV fluids she has been getting. She notes she had a viral illness this past weekend where she suffered from severe nausea, vomiting, and diarrhea. This has resolved. Allergies and Home Medications Allergies Coded Allergies: Iodinated Contrast- Oral and IV Dye (Verified Allergy, Intermediate, hives , 11/04/13) Sulfa (Sulfonamide Antibiotics) (Verified Allergy, Unknown, 10/21/08) ciprofloxacin (Verified Allergy, Unknown, 10/21/08) guaifenesin (Verified Allergy, Unknown, 10/21/08) hydroxychloroquine (Verified Allergy, Unknown, 10/21/08) iopamidol (Verified Allergy, Unknown, 10/21/08) nitrofurantoin (Verified Allergy, Unknown, 10/21/08) Home Medications Amlodipine Besylate 5 Mg Tablet, 5 MG PO DAILY, (Reported) Aspirin 81 Mg Tablet.dr, 81 MG PO HS, (Reported) Atorvastatin Calcium 40 Mg Tablet, 40 MG PO HS, (Reported) Cholecalciferol (Vitamin D3) 2,000 Unit Capsule, 2,000 UNIT PO DAILY, (Reported) Citalopram Hydrobromide 10 Mg Tablet, 10 MG PO DAILY, (Reported) Clopidogrel Bisulfate 75 Mg Tablet, 75 MG PO HS, (Reported) Fenofibrate,Micronized 67 Mg Capsule, 67 MG PO HS, (Reported) Fish Oil/Dha/Epa 1 Each Capsule, 1,200 MG PO BID, (Reported) Levothyroxine Sodium 88 Mcg Tablet, 88 MCG PO DAILY, (Reported) Loratadine 10 Mg Tablet, 10 MG PO DAILY PRN for ALLERGIES, (Reported) Magnesium Oxide 400 Mg Tablet, 400 MG PO DAILY, (Reported) Metoprolol Succinate 50 Mg Tab.er.24h, 50 MG PO HS, (Reported) Nitroglycerin 0.4 Mg Tab.subl, 0.4 MG PO UD PRN for CHEST PAIN, (Reported) Pantoprazole Sodium 40 Mg Tablet.dr, 40 MG PO DAILY, (Reported) Semaglutide 0.25 Mg/0.2 Ml Pen.injctr, 0.25 MG SQ We, (Reported) Patient Home Medication List Home Medication List Reviewed: Yes Past Hrtazau-Rbslvt-Natrlt Hx Past Med/Social Hx: Reviewed Nursing Past Med/Soc Hx Patient Social History Alcohol Use: Denies Use Number of Drinks Today: FF Alcohol Beverage of Choice: Vodka Recreational Drug Use: No Smoking Status: Former Smoker Type Used: Cigarettes 2nd Hand Smoke Exposure: No Recent Foreign Travel: No Contact w/Someone Who Travel: No Recent Infectious Disease Expo: No Recent Hopitalizations: No Immunizations Up To Date Tetanus Booster (TDap): Unknown Date of Pneumonia Vaccine: Aug 09, 2017 Date of Influenza Vaccine: Apr 26, 2018 Seasonal Allergies Seasonal Allergies: No Past Medical History Surgeries: Yes (SPLENECTOMY FOR LYMPHOMA; FIORDALIZA; FOOT SURGERY; BILATERAL TOTAL KNEE REPLACEMENTS; RUPTURED COLON REPAIRED; MOH'S SURGERY ON NOSE FOR SKIN CANCER; SINUS SX,; 3 VESSEL CABG; CARDIAC CATHS WITH STENT X 09/2017; INCISIONAL HERNIA REPAIR) Abdominal, Cardiac, CABG, Coronary Stent, Gallbladder, Joint Replacement, Nose, Orthopedic Respiratory: No Cardiac: Yes (TRIPLE BYPASS 10/2013; CARDIAC CATHS WITH STENT X 09/2017; MN X 3) Coronary Artery Disease, Heart Attack, Hypertension Neurological: No : No Reproductive Disorders: No 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 History: Menopausal Genitourinary: No Gastrointestinal: Yes (GB REMOVED, INCISIONAL HERNIA'S; SPELENECTOMY FOR LYMPHOMA; COLON RESECTION FOR RUPTURE) Abdominal Hernia, Gall Bladder Disease Musculoskeletal: Yes Osteoporosis, Arthritis, Rheumatoid Arthritis Endocrine: Yes (AUTO IMMUNE DISORDER SEES DR VALDEZ) Hypothyroidsim HEENT: No Cancer: Yes (NONHODGKIN'S LYMPHOMA-NO TREATMENT SINCE 2001; S/P SPLENECTOMY AND CHEMOTHERAPY) Skin, Lymphoma Did You Recieve Any Treatments: Yes What Type of Treatment Did You: Chemotherapy, Surgical Intervention Psychosocial: No Integumentary: No Blood Disorders: No Adverse Reaction/Blood Tranf: No Family Medical History Reviewed Nursing Family Hx Cardiovascular disease G8 BROTHER FH: COPD (chronic obstructive pulmonary disease) 19 MOTHER FH: multiple myeloma 19 FATHER, Onset:63 Review of Systems-General Constitutional: no symptoms reported EENTM: no symptoms reported Respiratory: no symptoms reported Cardiovascular: no symptoms reported Gastrointestinal: no symptoms reported Genitourinary: frequency, incontinence Musculoskeletal: no symptoms reported Skin: no symptoms reported Psychiatric/Neurological: No Symptoms Reported Physical Exam-General Problems Physical Exam Vital Signs Vital Signs - First Documented Capillary Refill : NONELess Than 3 Seconds General Appearance: WD/WN, no apparent distress Eyes: Bilateral Eye Normal Inspection, Bilateral Eye PERRL, Bilateral Eye EOMI HEENT: PERRL/EOMI, normal ENT inspection, pharynx normal Neck: normal inspection Respiratory: lungs clear, normal breath sounds, no respiratory distress, no accessory muscle use Cardiovascular: regular rate, rhythm, no edema, no murmur Gastrointestinal: normal bowel sounds, soft, no organomegaly Extremities: normal inspection, no pedal edema Neurologic/Psychiatric: no motor/sensory deficits, alert, normal mood/affect, oriented x 3 Skin: normal color, warm/dry Lymphatic: no adenopathy Assessment/Plan Assessment/Plan Admission Diagnosis/Plan Patient is a 68 yo female with hypogammaglobulinemia secondary to prior immunosuppressive therapy for malignancy and autoimmune disease. She was admitted for STEMI secondary to graft thrombosis. She has no evidence of malignancy at this time. Mild monocytosis on admission likely a sign of acute physical stress rather than marrow disorder. I do not believe she has any other hematologic disorder that predisposes her to arterial thrombosis. She will resume follow up in our clinic for IVIg treatments after discharge from the hospital. Thank you for allowing me to participate in the care of Ms. Costa. Clinical Quality Measures AMI/AHF: ASA po Prior to arrival: No DVT/VTE Risk/Contraindication: Risk Factor Score Per Nursin RFS Level Per Nursing on Admit: 4+=Very High Results Labs Labs Laboratory Tests 05/17/18 23:25: White Blood Count 8.9, Red Blood Count 5.07, Hemoglobin 15.8, Hematocrit 43, Mean Corpuscular Volume 84, Mean Corpuscular Hemoglobin 31, Mean Corpuscular Hemoglobin Concent 37H, Red Cell Distribution Width 14.3, Platelet Count 410H, Mean Platelet Volume 10.3, Neutrophils (%) (Auto) 46, Lymphocytes (%) (Auto) 39 , Monocytes (%) (Auto) 14H, Eosinophils (%) (Auto) 1, Basophils (%) (Auto) 1, Neutrophils # (Auto) 4.1, Lymphocytes # (Auto) 3.4, Monocytes # (Auto) 1.3H, Eosinophils # (Auto) 0.1, Basophils # (Auto) 0.1, Prothrombin Time 13.2, INR Comment 1.0, Activated Partial Thromboplast Time 26, Sodium Level 135, Potassium Level 2.7L, Chloride Level 100, Carbon Dioxide Level 17L, Anion Gap 18H, Blood Urea Nitrogen 49H, Creatinine 2.16H, Estimat Glomerular Filtration Rate 23, BUN/Creatinine Ratio 23, Glucose Level 118H, Calcium Level 10.1, Corrected Calcium , Magnesium Level 2.3, Total Bilirubin 0.5, Aspartate Amino Transf (AST/SGOT) 50H, Alanine Aminotransferase (ALT/SGPT) 26, Alkaline Phosphatase 61, Total Creatine Kinase 387H, Creatine Kinase MB 25.0*H, Myoglobin 441.0H, Troponin I < 0.30, B-Type Natriuretic Peptide 15.4, Total Protein 7.3, Albumin 4.6H, Amylase Level 85, Lipase 59 05/18/18 04:24: White Blood Count 9.6, Red Blood Count 4.12L, Hemoglobin 12.7, Hematocrit 35, Mean Corpuscular Volume 86, Mean Corpuscular Hemoglobin 31, Mean Corpuscular Hemoglobin Concent 36, Red Cell Distribution Width 13.9, Platelet Count 323, Mean Platelet Volume 10.2, Sodium Level 132L, Potassium Level 3.6, Chloride Level 106, Carbon Dioxide Level 16L, Anion Gap 10, Blood Urea Nitrogen 42H, Creatinine 1.50H, Estimat Glomerular Filtration Rate 34, BUN/Creatinine Ratio 28 , Glucose Level 120H, Calcium Level 8.4L, Corrected Calcium 8.7, Total Bilirubin 0.4, Aspartate Amino Transf (AST/SGOT) 59H, Alanine Aminotransferase ( ALT/SGPT) 22, Alkaline Phosphatase 49, Troponin I 5.21*H, Total Protein 5.6L, Albumin 3.6, Triglycerides Level 82, Cholesterol Level 73, LDL Cholesterol Direct 38, VLDL Cholesterol 16, HDL Cholesterol 20L 05/18/18 16:14: Glucometer 117H 05/18/18 17:30: Urine Color YELLOW, Urine Clarity CLEAR, Urine pH 6, Urine Specific [place] 1.010L, Urine Protein NEGATIVE, Urine Glucose (UA) NEGATIVE, Urine Ketones NEGATIVE, Urine Nitrite NEGATIVE, Urine Bilirubin NEGATIVE, Urine Urobilinogen NORMAL, Urine Leukocyte Esterase NEGATIVE, Urine RBC (Auto) NEGATIVE, Urine RBC NONE, Urine WBC NONE, Urine Squamous Epithelial Cells 0-2, Urine Crystals NONE, Urine Bacteria NONE, Urine Casts NONE, Urine Mucus NEGATIVE, Urine Culture Indicated NO MARTY CANTU MD May 18, 2018 19:35
[2018-05-18] MEDS ORDERED: ATORVASTATIN 80 MG (LIPITOR) TABLET PO SCH (21:00)
[2018-05-19] VITALS: BP 94/55
[2018-05-19 04:00] VITALS: BP 99/56
[2018-05-19] MEDS: inSUlin ASPART (NovoLOG) 1 UNIT/0.01 ML (CHARGE PER UNIT) SC SCH ×2 (05:39→11:45)
[2018-05-19 05:55] LABS: HEMOGLOBIN 8.9 G/DL (11.5-16.0); MEAN PLATELET VOLUME 10.4 FL (7.4-10.4); RED BLOOD COUNT 2.88 10^6/uL (4.35-5.85); RED CELL DISTRIBUTION WIDTH 14.2 % (10.0-14.5); WHITE BLOOD COUNT 11.5 10^3/uL (4.3-11.0)
[2018-05-19 06:11] LABS: CALCIUM 8.1 MG/DL (8.5-10.1); CREATININE SERUM 0.95 MG/DL (0.60-1.30); POTASSIUM 3.1 MMOL/L (3.6-5.0)
[2018-05-19] MEDS: NS IV 1000 ML 1,000 ML IV SCH (06:38)
[2018-05-19] MEDS: OMEGA 3 (FISH OIL) 1000 MG CAP PO SCH (06:38)
[2018-05-19 08:00] VITALS: BP 101/58
[2018-05-19] MEDS: CLOPIDOGREL 75 MG (PLAVIX) TABLET PO SCH (09:13)
[2018-05-19] MEDS: PANTOPRAZOLE 40 MG (PROTONIX) TAB PO SCH (09:14)
[2018-05-19] MEDS: ASPIRIN E.C. 81 MG (ECOTRIN) TAB PO SCH (09:14)
[2018-05-19] MEDS ORDERED: KCL 10 MEQ TAB (MICRO K) PO NR (10:45)
--- NOTE | 2018-05-19 10:47 | Progress Note-Hospitalist ---
Subjective HPI/CC On Admission Date Seen by Provider: May 19, 2018 Time Seen by Provider: 10:41 Pt is a 68yoCF with a PMH of CAD s/p CABG, NIDDMII, and RA who presented to the ER on 05/17 evening due to dyspnea, fatigue, and persistent diarrhea. Upon arrival she was found to have STEMI on EKG and taken emergently to [facility] lab[facility] where she underwent balloon angioplasty. I am consulted for medical management of DM. She states she has well controlled diabetes and she is not on insulin. She is feeling better today and has no complaints. Subjective/Events-last exam Patient reports that she feels well she would like to go home. She denies chest pain shortness of breath or lightheadedness with trips the bathroom and back. She notes with IV fluid she's feeling a little puffy in the face and the hands but denies shortness of breath. She denies abdominal or back pain with only mild tenderness at the site of the puncture wound in the right groin from her cardiac catheterization. She denies leg pain. She has had a bowel movement and is noted no evidence for melena or bright red blood per rectum. She reports that her bowel movement was light in color. She did have a further hemoglobin drop overnight from the mid 12 range to 8.9. Objective Exam Vital Signs Vital Signs Date Time Temp Pulse Resp B/P (MAP) Pulse Ox O2 Delivery O2 Flow Rate FiO2 05/19/18 08:00 98.4 70 16 101/58 (72) 96 Room Air 05/18/18 08:00 4.00 Capillary Refill : NONELess Than 3 Seconds General Appearance: No Apparent Distress, WD/WN Respiratory: Chest Non Tender, Lungs Clear, Normal Breath Sounds, No Accessory Muscle Use, No Respiratory Distress Cardiovascular: Regular Rate, Rhythm, No Edema, No Gallop, No JVD, No Murmur, Normal Peripheral Pulses Gastrointestinal: Normal Bowel Sounds, No Organomegaly, No Pulsatile Mass, Non Tender, Soft Extremity: Normal Capillary Refill, Normal Inspection, No Pedal Edema, Other ( Mild tenderness with usual swelling a little bit of bruising around the puncture site in the right groin. There are some mild tenderness to palpation in the right pelvic area but without rebound or guarding. The upper thigh is not tender or indurated) Results/Procedures Lab Laboratory Tests 05/19/18 05:25 Patient resulted labs reviewed. Assessment/Plan Assessment and Plan Assess & Plan/Chief Complaint (1) STEMI (ST elevation myocardial infarction) Status: Acute Assessment & Plan: Management per primary Cathed on 05/17 Continue ASA and Plavix Continue statin Qualifiers: Involved coronary artery: other coronary artery Qualified Codes: I21.29 - ST elevation (STEMI) myocardial infarction involving other sites (2) Non-insulin dependent type 2 diabetes mellitus Assessment & Plan: Hold home ozempic. Blood sugars remain normal off diabetic medication at this time expect that they will climb with by mouth intake discontinue sliding scale insulin as needed. Thus far not required with good blood sugar control. SSI (3) Acute renal insufficiency Status: Acute Assessment & Plan: Continue IVF given recent contrast exposure likely from hypovolemia from GI losses. Renal insufficiency improving creatinine down to 1.5 no evidence for contrast-induced nephropathy. (4) Coronary artery disease Status: Acute Assessment & Plan: Cardiology managing Qualifiers: Coronary Disease-Associated Artery/Lesion type: bypass graft [place] vs. transplanted heart: [place] heart Associated angina: with unspecified angina Qualified Codes: I25.709 - Atherosclerosis of coronary artery bypass graft(s), unspecified, with unspecified angina pectoris 5. Anemia multifactorial including dilutional from IV fluids but suspect there has been some bleeding from the puncture wound will continue to monitor repeat hemoglobin at noon and in the morning. Thus far the patient is hemodynamically stable with no change in vital signs with stable low normal blood pressures and heart rate in the 60s. She will continue to monitor her stool after discussion for any evidence for bleeding she was told signs to watch for and will notify nursing services. Considering normal white color bowel movement this morning GI tract losses unlikely. Clinical Quality Measures AMI/AHF: ASA po Prior to arrival: No DVT/VTE Risk/Contraindication: Risk Factor Score Per Nursin RFS Level Per Nursing on Admit: 4+=Very High KATYA SANCHEZ MD May 19, 2018 10:47
[2018-05-19 12:00] VITALS: BP 128/74
[2018-05-19 12:03] LABS: BASOPHILS # (AUTO) 0.1 10^3/uL (0.0-0.1); BASOPHILS % (AUTO) 0 % (0-10); EOSINOPHILS # (AUTO) 0.1 10^3/uL (0.0-0.3); EOSINOPHILS % (AUTO) 1 % (0-10); HEMATOCRIT 27 % (35-52); HEMOGLOBIN 9.5 G/DL (11.5-16.0); LYMPHOCYTES % (AUTO) 35 % (12-44); MEAN CORPUSCULAR HEMOGLOBIN 31 PG (25-34); MEAN CORPUSCULAR HGB CONC 36 G/DL (32-36); MEAN CORPUSCULAR VOLUME 87 FL (80-99); MEAN PLATELET VOLUME 10.2 FL (7.4-10.4); MONOCYTES # (AUTO) 1.1 X 10^3 (0.0-1.0); MONOCYTES % (AUTO) 10 % (0-12); NEUTROPHILS # (AUTO) 6.3 X 10^3 (1.8-7.8); NEUTROPHILS % (AUTO) 54 % (42-75); PLATELET COUNT 274 10^3/uL (130-400); RED BLOOD COUNT 3.06 10^6/uL (4.35-5.85); RED CELL DISTRIBUTION WIDTH 14.3 % (10.0-14.5); WHITE BLOOD COUNT 11.6 10^3/uL (4.3-11.0)
--- NOTE | 2018-05-19 13:14 | Discharge Inst-Post CATH ---
Discharge Inst-CATH/EP Post Cardiac Cath/EP D/C Inst Follow Up/Plan Appointment with Dr. Messer's office in 2-4 weeks CARDIAC CATH DISCHARGE INSTRUCTIONS *Hold Metformin for 48 hours post heart cath. ACTIVITY * Go Home directly and rest. * Limit activity of the leg (or wrist if it was used) for 7 days including aerobics, swimming, jogging, bicycling, etc. * Restrict stair-climbing for 7 days if possible, if not, climb up with your non -cath leg, then bring together on the same step. * Avoid lifting, pushing, pulling or excessive movement of the affected extremity for 7 days. * Customary sexual activity may be resumed after 2 days-use caution not to use a position that strains or causes pain to the affected extremity. * No driving for 24 hours. * NO SMOKING. * Avoid straining for bowel movements for 7 days. * Gentle walking on level ground is allowed. * Returning to work will depend on the type of procedure and the results. Your doctor will discuss this with you. CALL YOUR DOCTOR FOR ANY OF THE FOLLOWING: *If bleeding from the puncture site occurs- Apply gentle pressure to site with clean cloth and call your doctor or EMS. * If a knot or lump forms under the skin, increases in size, or causes pain. * If bruising appears to be worsening or moving further down your leg instead of disappearing. * Temperature above 101 F. CARE OF YOUR GROIN INCISION; * Bruising or purple discoloration of the skin near the puncture site is common. * You may shower only, no bathtub bathing for 5 days. Be careful to avoid slipping as your leg may feel stiff. * If a closure device was used on your femoral artery, please see the attached guide regarding care of the device and your leg. * Leave the dressing on, until removed by office staff. CARE OF YOUR WRIST INCISION; * Bruising or purple discoloration of the skin near the puncture site is common. * You may shower. * DO NOT submerge wrist. * Leave dressing on, until removed by office staff.. ZIA MESSER MD May 19, 2018 13:14
--- NOTE | 2018-05-19 13:18 | Cardiology Discharge Summary ---
Diagnosis/Chief Complaint Date of Admission May 18, 2018 at 01:30 Date of Discharge May 19, 2018 Admission Diagnosis Acute myocardial infarction Coronary artery disease Hypertension Hyperlipidemia Discharge Diagnosis Acute ST elevation myocardial infarction Acute renal failure Coronary artery disease Hypertension Chief Complaint/HPI Chief Complaint/HPI 68 years old lady with history of coronary artery disease, started having sudden onset chest pain this evening when she went to bed. Came into the emergency room and noted to have ST elevation in inferior wall. She has been having nausea and vomiting for the past 3 days. Dehydrated. Having active pain with nausea and vomiting. No palpitation. No syncope or near syncopal episodes. Patient was taken for emergency cardiac catheterization had occluded vein graft to the second obtuse marginal branch, emergency thrombectomy and balloon angioplasty was done with good results. She was monitored, she is feeling well , no further episodes of chest pain, groin is healing well. Her appetite is well, no further nausea and vomiting, renal function are back to normal. Discussed the management plan, educated in length on condition and she will be discharged home today Discharge Summary Hospital Course Hospital Course Acute myocardial infarction the inferior wall, status post cardiac catheterization thrombectomy to the vein graft. Good results. Coronary artery disease, history of CABG [address] valerio in October 2013, had an acute NM in November 2013 involving the inferior wall underwent emergency cardiac catheterization with thrombectomy of the vein graft to the circumflex artery then angioplasty with the 2.5 balloon. had another myocardial infarction on May 17, 2018 underwent emergency cardiac catheterization with occlusion of the vein graft to the second obtuse marginal branch, underwent thrombectomy then balloon angioplasty. There was slow flow at the distal portion. EKG has improved, patient is chest pain-free. The artery is fairly small. continue with medical therapy for now Hypertension, currently borderline hypotension, increasing fluid intake and monitor Acute renal failure secondary to dehydration, history of chronic renal insufficiency. Renal function is back to baseline. Continue to monitor as an outpatient Gastroenteritis, nausea and vomiting, reporting improvement, no further episodes of nausea or vomiting. Hyperlipidemia, maintained on Lipitor 40 mg daily, continue to monitor Mild carotid stenosis, continue to monitor carotid artery History of non-Hodgkin's lymphoma, history of splenectomy and chemotherapy finished chemotherapy in 2002 as been in remission followed by Dr. Zamorano History of basal cell carcinoma of the nose underwent reconstructive surgery, followed by Dr. Zamorano Hypothyroidism, followed and managed by primary care physician History of hypogammaglobulinemia receiving Gammagrad monthly and followed by Dr. Zamorano Labs Laboratory Tests 05/17/18 23:25: Mean Corpuscular Hemoglobin Concent 37H, Platelet Count 410H, Monocytes (%) ( Auto) 14H, Monocytes # (Auto) 1.3H, Potassium Level 2.7L, Carbon Dioxide Level 17L, Anion Gap 18H, Blood Urea Nitrogen 49H, Creatinine 2.16H, Glucose Level 118H, Aspartate Amino Transf (AST/SGOT) 50H, Total Creatine Kinase 387H, Creatine Kinase MB 25.0*H, Myoglobin 441.0H, Albumin 4.6H 05/18/18 04:24: Carbon Dioxide Level 16L, Blood Urea Nitrogen 42H, Creatinine 1.50H, Glucose Level 120H, Aspartate Amino Transf (AST/SGOT) 59H, Red Blood Count 4.12L, Sodium Level 132L, Calcium Level 8.4L, Troponin I 5.21*H, Total Protein 5.6L, HDL Cholesterol 20L 05/18/18 16:14: Glucometer 117H 05/18/18 17:30: Urine Specific [place] 1.010L 05/18/18 20:52: Glucometer 116H 05/19/18 05:25: White Blood Count 11.5H, Red Blood Count 2.88L, Hemoglobin 8.9#L, Hematocrit 25L , Potassium Level 3.1L, Chloride Level 112H, Carbon Dioxide Level 19L, Blood Urea Nitrogen 20H, Calcium Level 8.1L, Troponin I 13.56*H 05/19/18 05:26: 05/19/18 11:23: 05/19/18 11:45: White Blood Count 11.6H, Red Blood Count 3.06L, Hemoglobin 9.5L, Hematocrit 27L , Monocytes # (Auto) 1.1H Procedures None. Discharge Physical Examination Allergies: Coded Allergies: Iodinated Contrast- Oral and IV Dye (Verified Allergy, Intermediate, hives , 11/04/13) Sulfa (Sulfonamide Antibiotics) (Verified Allergy, Unknown, 10/21/08) ciprofloxacin (Verified Allergy, Unknown, 10/21/08) guaifenesin (Verified Allergy, Unknown, 10/21/08) hydroxychloroquine (Verified Allergy, Unknown, 10/21/08) iopamidol (Verified Allergy, Unknown, 10/21/08) nitrofurantoin (Verified Allergy, Unknown, 10/21/08) Vitals & I&Os Vital Signs Date Time Temp Pulse Resp B/P (MAP) Pulse Ox O2 Delivery O2 Flow Rate FiO2 05/19/18 12:00 98.4 68 16 128/74 (92) 98 Room Air 05/18/18 08:00 4.00 General Appearance: Alert, Oriented X3, Cooperative, No Acute Distress HEENT: Atraumatic, PERRLA Respiratory: Clear to Auscultation, Normal Air Movement Cardiovascular: Regular Rate, Normal S1, Normal S2, No Murmurs Abdominal: Normal Bowel Sounds, Soft, No Tenderness, No Hepatosplenomegaly, No Masses Extremities: No Clubbing, No Cyanosis, No Edema, Normal Pulses, No Tenderness/ Swelling Skin: No Rashes, No Breakdown, No Significant Lesion Neuro: Normal Gait, Normal Speech, Strength at 5/5 X4 Ext, Normal Tone, Sensation Intact, Cranial Nerves 3-12 NL, Reflexes 2+ Psych/Mental Status: Mental Status NL, Mood NL Discharge Home Medications Reviewed and agree with Discharge Medication list on patient's Discharge Instruction sheet Instructions to Patient/Family Please see electronic discharge instructions given to patient. Clinical Quality Measures Admission Status Admission Status: Inpatient Order (span 2 midnights) Reason for Inpatient Admission: patient had acute ST elevation myocardial infarction in the inferior wall AMI/AHF: ASA po Prior to arrival: No DVT/VTE Risk/Contraindication: Risk Factor Score Per Nursin RFS Level Per Nursing on Admit: 4+=Very High ZIA HENDERSON MD May 19, 2018 13:18
[2018-05-19 14:39] VITALS: BP 128/74
[2018-05-19] MEDS ORDERED: KCL 10 MEQ TAB (MICRO K) PO SCH (17:00)
== END 2018-05-19 14:00 | disposition home or self-care (01) | DRG 248 ==
LOC: EDUNIT# 23:18 → ER 23:20 → CATH 23:50 → ICU 05-18 01:30 → 4TH 05-18 11:17
PROVIDERS: ADMIT Internal Medicine Cardiovascular Disease; ATTEND Internal Medicine Cardiovascular Disease
PROC: 02C03ZZ Extirpation of Matter from Coronary Artery, One Artery, Percutaneous Approach (ICD-10-PCS; principal; 2018-05-18)
PROC: 02703DZ Dilation of Coronary Artery, One Artery with Intraluminal Device, Percutaneous Approach (ICD-10-PCS; 2018-05-18)
PROC: 4A023N7 Measurement of Cardiac Sampling and Pressure, Left Heart, Percutaneous Approach (ICD-10-PCS; 2018-05-18)
PROC: B2111ZZ Fluoroscopy of Multiple Coronary Arteries using Low Osmolar Contrast (ICD-10-PCS; 2018-05-18)
PROC: B2151ZZ Fluoroscopy of Left Heart using Low Osmolar Contrast (ICD-10-PCS; 2018-05-18)
PROC: B21F1ZZ Fluoroscopy of Other Bypass Graft using Low Osmolar Contrast (ICD-10-PCS; 2018-05-18)
DX: T82.867A Thrombosis due to cardiac prosthetic devices, implants and grafts, initial encounter (principal); I21.19 ST elevation (STEMI) myocardial infarction involving other coronary artery of inferior wall; I25.709 Atherosclerosis of coronary artery bypass graft(s), unspecified, with unspecified angina pectoris; N17.9 Acute kidney failure, unspecified; I12.9 Hypertensive chronic kidney disease with stage 1 through stage 4 chronic kidney disease, or unspecified chronic kidney disease; N18.9 Chronic kidney disease, unspecified; D80.1 Nonfamilial hypogammaglobulinemia; E86.0 Dehydration; C85.90 Non-Hodgkin lymphoma, unspecified, unspecified site; E03.9 Hypothyroidism, unspecified; E11.9 Type 2 diabetes mellitus without complications; K52.9 Noninfective gastroenteritis and colitis, unspecified; I77.9 Disorder of arteries and arterioles, unspecified; E87.8 Other disorders of electrolyte and fluid balance, not elsewhere classified; E78.5 Hyperlipidemia, unspecified; M06.9 Rheumatoid arthritis, unspecified; M19.91 Primary osteoarthritis, unspecified site; M81.0 Age-related osteoporosis without current pathological fracture; I25.2 Old myocardial infarction; Z95.1 Presence of aortocoronary bypass graft; Z95.5 Presence of coronary angioplasty implant and graft; Z79.899 Other long term (current) drug therapy; Z87.891 Personal history of nicotine dependence; Z96.653 Presence of artificial knee joint, bilateral; Z92.21 Personal history of antineoplastic chemotherapy; Z90.81 Acquired absence of spleen; Z85.828 Personal history of other malignant neoplasm of skin; Z79.84 Long term (current) use of oral hypoglycemic drugs
CPT/HCPCS: 36415; 71045; 80048; 80053; 80061; 81000; 82150; 82550; 82553; 82962; 83690; 83735; 83874; 83880; 84484; 85025; 85027; 85610; 85730; 93005; 93041; 93458; 96374; 96375; 96376

== ENCOUNTER 2018-06-01 09:00 | Outpatient (RCR) | payer MEDICARE ==
[2018-03-29 15:10] LABS: BASOPHILS # (AUTO) 0.2 10^3/uL (0.0-0.1); BASOPHILS % (AUTO) 2 % (0-10); EOSINOPHILS # (AUTO) 0.3 10^3/uL (0.0-0.3); EOSINOPHILS % (AUTO) 3 % (0-10); HEMATOCRIT 42 % (35-52); HEMOGLOBIN 14.4 G/DL (11.5-16.0); LYMPHOCYTES # (AUTO) 3.7 X 10^3 (1.0-4.0); LYMPHOCYTES % (AUTO) 37 % (12-44); MEAN CORPUSCULAR HEMOGLOBIN 31 PG (25-34); MEAN CORPUSCULAR HGB CONC 35 G/DL (32-36); MEAN CORPUSCULAR VOLUME 90 FL (80-99); MEAN PLATELET VOLUME 9.4 FL (7.4-10.4); MONOCYTES % (AUTO) 10 % (0-12); NEUTROPHILS # (AUTO) 4.8 X 10^3 (1.8-7.8); NEUTROPHILS % (AUTO) 48 % (42-75); PLATELET COUNT 535 10^3/uL (130-400); RED CELL DISTRIBUTION WIDTH 15.1 % (10.0-14.5); WHITE BLOOD COUNT 10.1 10^3/uL (4.3-11.0)
[2018-03-29 15:28] LABS: ALANINE AMINOTRANSFERASE 16 U/L (0-55); ALBUMIN 4.9 GM/DL (3.2-4.5); ALKALINE PHOSPHATASE 75 U/L (40-136); BILIRUBIN,TOTAL 0.5 MG/DL (0.1-1.0); BUN/CREATININE RATIO 15; CALCIUM 10.7 MG/DL (8.5-10.1); CARBON DIOXIDE 27 MMOL/L (21-32); CHLORIDE 103 MMOL/L (98-107); CREATININE SERUM 1.24 MG/DL (0.60-1.30); GFR ESTIMATED 43; GLUCOSE 89 MG/DL (70-105); POTASSIUM 3.7 MMOL/L (3.6-5.0); SODIUM 142 MMOL/L (135-145); TOTAL PROTEIN 7.1 GM/DL (6.4-8.2)
[~2018-06-01 09:00] MED LIST changes: +ACETAMINOPHEN 500 MG TAB (TYLENOL) CANCER CTR PO PRN; -AMLO5TAB7 PO; +AMLO5TAB9 PO; +CLOP75TA28 PO; +IMMUNE GLOBULIN,GAMMA (IGG) 200 ML IV SCH; +LOSA50TA63 PO; -LOSA50TA7 PO; +MAGN400T39 PO; +NITR0.4T42 PO; +PANT40TA3 PO; +SEMA0.25 SQ; +diphenhydrAMINE 25 MG TAB (BENADRYL) CANCER CENTER PO SCH
== END 2018-06-27 | disposition home or self-care (01) ==
LOC: ONC 09:00
PROVIDERS: ATTEND Internal Medicine Hematology & Oncology
DX: C85.90 Non-Hodgkin lymphoma, unspecified, unspecified site (principal); D80.1 Nonfamilial hypogammaglobulinemia; M06.9 Rheumatoid arthritis, unspecified; N18.3 Chronic kidney disease, stage 3 (moderate); Z79.899 Other long term (current) drug therapy
CPT/HCPCS: 36415; 80053; 82784; 85025; 96365; 96366; 99213; J1569

== ENCOUNTER → 2018-06-14 | Outpatient (CLI) | payer MEDICARE ==
[~2018-06-14] MED LIST changes: -ACETAMINOPHEN 500 MG TAB (TYLENOL) CANCER CTR PO PRN; +AMLO5TAB7 PO; -AMLO5TAB9 PO; -IMMUNE GLOBULIN,GAMMA (IGG) 200 ML IV SCH; -LOSA50TA63 PO; +LOSA50TA7 PO; -diphenhydrAMINE 25 MG TAB (BENADRYL) CANCER CENTER PO SCH
== END ==
LOC: CARD 08:51
PROVIDERS: ATTEND Physician Assistant
DX: I10 Essential (primary) hypertension (principal); I25.10 Atherosclerotic heart disease of native coronary artery without angina pectoris; E78.5 Hyperlipidemia, unspecified; R06.00 Dyspnea, unspecified
CPT/HCPCS: 93306

== ENCOUNTER → 2018-06-18 | Outpatient (CLI) | payer MEDICARE ==
[~2018-06-18] MED LIST changes: -AMLO5TAB7 PO; +AMLO5TAB9 PO; +CATHETER FLUSH 10 ML SYR IV PRN; +LOSA50TA63 PO; -LOSA50TA7 PO
[2018-06-18 09:44] VITALS: BP 129/85
[2018-06-18 09:51] VITALS: BP 138/81
--- NOTE | 2018-06-18 15:02 | STRESS TEST ---
DATE OF SERVICE: 06/18/2018 LEXISCAN MYOVIEW STRESS TEST REPORT Baseline heart rate is 67. Baseline blood pressure is 126/62. Baseline EKG is sinus rhythm with no ischemic changes. SUMMARY: The patient was injected with 10.77 mCi of technetium-99 Myoview and the resting images were obtained. Then, the patient received 0.4 mg of Lexiscan followed by 30.0 mCi of technetium-99 Myoview. Throughout the test, there were no EKG changes. The resting and stress images were reviewed and compared in the short axis, horizontal long axis, and vertical long axis views. Review of the images showed breast attenuation with typical female pattern, mild decreased uptake at the anterior apical segment with no reversibility. SSS is 2, SDS 2, TID value 0.99. On the gated images, the left ventricle appeared to be normal size with normal contractility. Calculated ejection fraction 69%. CONCLUSION: 1. The patient tolerated Lexiscan well. 2. Breast attenuation with typical female pattern. No significant ischemia or infarction was noted on SPECT images. 3. Normal left ventricular size with normal contractility. Calculated ejection fraction 69%. Job ID: [id number] DocumentID: [id number] Dictated Date: 06/18/2018 11:50:00 Director Of Accounting Date: 06/18/2018 15:01:31 Dictated By: ZIA HENDERSON MD
== END ==
LOC: CARD 07:52
PROVIDERS: ATTEND Physician Assistant
DX: I10 Essential (primary) hypertension (principal); I25.10 Atherosclerotic heart disease of native coronary artery without angina pectoris; E78.5 Hyperlipidemia, unspecified; R06.00 Dyspnea, unspecified
CPT/HCPCS: 78452; 93017

== ENCOUNTER 2018-08-31 09:02 | Outpatient (RCR) | payer MEDICARE ==
[2018-08-03 09:45] LABS: ALBUMIN 4.1 GM/DL (3.2-4.5); BILIRUBIN,TOTAL 0.5 MG/DL (0.1-1.0); CALCIUM 9.9 MG/DL (8.5-10.1); CREATININE SERUM 1.31 MG/DL (0.60-1.30); POTASSIUM 3.9 MMOL/L (3.6-5.0); TOTAL PROTEIN 6.2 GM/DL (6.4-8.2)
[~2018-08-31 09:02] MED LIST changes: +ACETAMINOPHEN 500 MG TAB (TYLENOL) CANCER CTR PO PRN; -CATHETER FLUSH 10 ML SYR IV PRN; +IMMU GLOBULIN,GAMMA (IGG) 50 ML IV SCH; +IMMUNE GLOBULIN,GAMMA (IGG) 200 ML IV SCH; +diphenhydrAMINE 25 MG TAB (BENADRYL) CANCER CENTER PO SCH
[2018-08-31 09:24] LABS: BASOPHILS # (AUTO) 0.2 10^3/uL (0.0-0.1); BASOPHILS % (AUTO) 2 % (0-10); EOSINOPHILS # (AUTO) 0.3 10^3/uL (0.0-0.3); EOSINOPHILS % (AUTO) 3 % (0-10); HEMATOCRIT 41 % (35-52); HEMOGLOBIN 14.1 G/DL (11.5-16.0); LYMPHOCYTES % (AUTO) 30 % (12-44); MEAN CORPUSCULAR HEMOGLOBIN 30 PG (25-34); MEAN CORPUSCULAR HGB CONC 34 G/DL (32-36); MEAN CORPUSCULAR VOLUME 88 FL (80-99); MEAN PLATELET VOLUME 10.1 FL (7.4-10.4); MONOCYTES # (AUTO) 0.8 X 10^3 (0.0-1.0); MONOCYTES % (AUTO) 8 % (0-12); NEUTROPHILS # (AUTO) 5.7 X 10^3 (1.8-7.8); NEUTROPHILS % (AUTO) 58 % (42-75); PLATELET COUNT 489 10^3/uL (130-400); WHITE BLOOD COUNT 9.9 10^3/uL (4.3-11.0)
[2018-08-31 09:44] LABS: ALBUMIN 4.1 GM/DL (3.2-4.5); BILIRUBIN,TOTAL 0.4 MG/DL (0.1-1.0); CALCIUM 10.1 MG/DL (8.5-10.1); CREATININE SERUM 1.25 MG/DL (0.60-1.30); POTASSIUM 4.5 MMOL/L (3.6-5.0); TOTAL PROTEIN 7.1 GM/DL (6.4-8.2)
== END 2018-10-04 | disposition home or self-care (01) ==
LOC: ONC 09:02
PROVIDERS: ATTEND Internal Medicine Hematology & Oncology
DX: C85.90 Non-Hodgkin lymphoma, unspecified, unspecified site (principal); D80.1 Nonfamilial hypogammaglobulinemia; M06.9 Rheumatoid arthritis, unspecified; N18.3 Chronic kidney disease, stage 3 (moderate); Z79.899 Other long term (current) drug therapy
CPT/HCPCS: 36415; 80053; 82784; 83615; 85025; 96365; 96366; 99213; J1569

== ENCOUNTER → 2018-12-07 | Outpatient (CLI) | payer MEDICARE ==
[~2018-12-07] MED LIST changes: -ACETAMINOPHEN 500 MG TAB (TYLENOL) CANCER CTR PO PRN; -IMMU GLOBULIN,GAMMA (IGG) 50 ML IV SCH; -IMMUNE GLOBULIN,GAMMA (IGG) 200 ML IV SCH; -diphenhydrAMINE 25 MG TAB (BENADRYL) CANCER CENTER PO SCH
--- NOTE | 2018-12-07 17:12 | Diagnostic Imaging Report ---
INDICATION: Routine screening. Comparison is made with prior mammograms from 05/20/2015 and 06/20/2014. 2-D and 3-D bilateral screening mammography was performed. The current study was also evaluated with a Computer Aided Detection (CAD) system. 3-D tomosynthesis was also performed and reviewed. FINDINGS: Both breasts remain heterogeneously dense, limiting the sensitivity of mammography. The parenchymal pattern is stable. No mass or malignant-appearing microcalcifications are seen. Axillae are unremarkable. IMPRESSION: No mammographic features suspicious for malignancy are identified. ACR BI-RADS Category 1: Negative. Result letter will be mailed to the patient. Note: At least 10% of breast cancer is not imaged by mammography. Dictated by: Dictated on workstation # [id number]
== END ==
LOC: RAD 14:43
PROVIDERS: ATTEND Nurse Practitioner Family
DX: Z12.31 Encounter for screening mammogram for malignant neoplasm of breast (principal)
CPT/HCPCS: 77067

== ENCOUNTER → 2019-05-30 | Outpatient (RCR) | payer MEDICARE ==
[2019-03-01 09:33] LABS: BASOPHILS # (AUTO) 0.2 10^3/uL (0.0-0.1); BASOPHILS % (AUTO) 2 % (0-10); EOSINOPHILS # (AUTO) 0.4 10^3/uL (0.0-0.3); EOSINOPHILS % (AUTO) 4 % (0-10); HEMATOCRIT 42 % (35-52); HEMOGLOBIN 14.1 G/DL (11.5-16.0); LYMPHOCYTES # (AUTO) 3.2 X 10^3 (1.0-4.0); LYMPHOCYTES % (AUTO) 35 % (12-44); MEAN CORPUSCULAR HEMOGLOBIN 31 PG (25-34); MEAN CORPUSCULAR HGB CONC 34 G/DL (32-36); MEAN CORPUSCULAR VOLUME 92 FL (80-99); MEAN PLATELET VOLUME 9.9 FL (7.4-10.4); MONOCYTES # (AUTO) 0.8 X 10^3 (0.0-1.0); MONOCYTES % (AUTO) 9 % (0-12); NEUTROPHILS # (AUTO) 4.7 X 10^3 (1.8-7.8); NEUTROPHILS % (AUTO) 50 % (42-75); PLATELET COUNT 409 10^3/uL (130-400); RED CELL DISTRIBUTION WIDTH 15.1 % (10.0-14.5); WHITE BLOOD COUNT 9.4 10^3/uL (4.3-11.0)
[2019-03-01 09:54] LABS: ALBUMIN 4.4 GM/DL (3.2-4.5); BILIRUBIN,TOTAL 0.7 MG/DL (0.1-1.0); CALCIUM 10.2 MG/DL (8.5-10.1); CREATININE SERUM 1.25 MG/DL (0.60-1.30); POTASSIUM 4.1 MMOL/L (3.6-5.0); TOTAL PROTEIN 6.5 GM/DL (6.4-8.2)
[~2019-05-30] MED LIST changes: +ACETAMINOPHEN 500 MG TAB (TYLENOL) CANCER CTR PO PRN; +IMMUNE GLOBULIN,GAMMA (IGG) 200 ML IV SCH; +diphenhydrAMINE 25 MG TAB (BENADRYL) CANCER CENTER PO SCH
[2019-05-30 09:18] LABS: BASOPHILS # (AUTO) 0.2 10^3/uL (0.0-0.1); BASOPHILS % (AUTO) 2 % (0-10); EOSINOPHILS # (AUTO) 0.4 10^3/uL (0.0-0.3); EOSINOPHILS % (AUTO) 4 % (0-10); HEMATOCRIT 43 % (35-52); HEMOGLOBIN 14.5 G/DL (11.5-16.0); LYMPHOCYTES # (AUTO) 3.7 X 10^3 (1.0-4.0); LYMPHOCYTES % (AUTO) 40 % (12-44); MEAN CORPUSCULAR HEMOGLOBIN 31 PG (25-34); MEAN CORPUSCULAR HGB CONC 34 G/DL (32-36); MEAN CORPUSCULAR VOLUME 91 FL (80-99); MEAN PLATELET VOLUME 9.9 FL (7.4-10.4); MONOCYTES # (AUTO) 0.9 X 10^3 (0.0-1.0); MONOCYTES % (AUTO) 10 % (0-12); NEUTROPHILS % (AUTO) 44 % (42-75); PLATELET COUNT 432 10^3/uL (130-400); RED CELL DISTRIBUTION WIDTH 15.1 % (10.0-14.5); WHITE BLOOD COUNT 9.2 10^3/uL (4.3-11.0)
[2019-05-30 09:46] LABS: ALANINE AMINOTRANSFERASE 25 U/L (0-55); ALBUMIN 4.6 GM/DL (3.2-4.5); ALKALINE PHOSPHATASE 64 U/L (40-136); BILIRUBIN,TOTAL 0.7 MG/DL (0.1-1.0); BUN/CREATININE RATIO 17; CALCIUM 9.9 MG/DL (8.5-10.1); CARBON DIOXIDE 24 MMOL/L (21-32); CHLORIDE 102 MMOL/L (98-107); CREATININE SERUM 1.21 MG/DL (0.60-1.30); GFR ESTIMATED 44; GLUCOSE 84 MG/DL (70-105); SODIUM 139 MMOL/L (135-145)
== END | disposition home or self-care (01) ==
LOC: ONC 03-01 08:54
PROVIDERS: ATTEND Internal Medicine Hematology & Oncology
DX: C85.90 Non-Hodgkin lymphoma, unspecified, unspecified site (principal); D80.1 Nonfamilial hypogammaglobulinemia; M06.9 Rheumatoid arthritis, unspecified; N18.3 Chronic kidney disease, stage 3 (moderate); Z79.899 Other long term (current) drug therapy
CPT/HCPCS: 36415; 80053; 82784; 83615; 85025; 96365; 96366; J1569

== ENCOUNTER 2019-09-20 08:42 | Outpatient (RCR) | payer MEDICARE ==
[~2019-09-20 08:42] MED LIST changes: -METO-370 PO; +METO50TA7 PO
== END 2019-09-26 | disposition home or self-care (01) ==
LOC: ONC 08:42
PROVIDERS: ATTEND Internal Medicine Hematology & Oncology
DX: C85.90 Non-Hodgkin lymphoma, unspecified, unspecified site (principal); D80.1 Nonfamilial hypogammaglobulinemia; M06.9 Rheumatoid arthritis, unspecified; N18.3 Chronic kidney disease, stage 3 (moderate); Z79.899 Other long term (current) drug therapy
CPT/HCPCS: 96365; 96366; J1569

== ENCOUNTER 2019-12-20 12:26 | Outpatient (CLI) | payer MEDICARE ==
[~2019-12-20] VITALS: Ht 162.6 cm; Wt 59.1 kg
[~2019-12-20 12:26] MED LIST changes: -ACETAMINOPHEN 500 MG TAB (TYLENOL) CANCER CTR PO PRN; -IMMUNE GLOBULIN,GAMMA (IGG) 200 ML IV SCH; -diphenhydrAMINE 25 MG TAB (BENADRYL) CANCER CENTER PO SCH
[2019-12-20 12:30] VITALS: BP 108/60
[2019-12-20] MEDS ORDERED: cefTRIAXone 1,000 MG/SWFI 10 ML IV PUSH IV ONE ×2 (13:00)
[2019-12-20] MEDS ORDERED: CATHETER FLUSH 10 ML SYR IV PRN (13:00)
[2019-12-20] MEDS: LACTATED RINGERS 2,000 ML IV SCH (13:00)
--- NOTE | 2019-12-20 13:15 | NUR ---
jonn townsend phoned and gave telephone order to only give 1liter lr instead of 2 and would faxed amended order later this afternoon when gets back to office.
== END 2019-12-20 14:15 | disposition home or self-care (01) ==
LOC: SDC 12:26
PROVIDERS: ATTEND Internal Medicine
DX: E86.0 Dehydration (principal); N39.0 Urinary tract infection, site not specified; Z16.20 Resistance to unspecified antibiotic
CPT/HCPCS: 96365; 96374

== ENCOUNTER → 2020-01-10 | Outpatient (CLI) | payer MEDICARE ==
--- NOTE | 2020-01-10 11:08 | Diagnostic Imaging Report ---
INDICATION: Routine screening. Comparison is made with prior mammogram 12/07/2018 and 05/20/2015. 2-D and 3-D bilateral screening mammography was performed with CAD. Both breasts are heterogeneously dense, limiting the sensitivity of mammography. The parenchymal pattern is stable. No mass or malignant appearing microcalcifications are seen. Axillae are unremarkable. IMPRESSION: BI-RADS Category 1 No mammographic features suspicious for malignancy are identified. ACR BI-RADS Category 1: Negative. Result letter will be mailed to the patient. Note: At least 10% of breast cancer is not imaged by mammography. Dictated by: Dictated on workstation # [id number]
== END ==
LOC: RAD 09:17
PROVIDERS: ATTEND Nurse Practitioner Family
DX: Z12.31 Encounter for screening mammogram for malignant neoplasm of breast (principal)
CPT/HCPCS: 77063; 77067

== ENCOUNTER → 2020-05-27 | Outpatient (RCR) | payer MEDICARE ==
[2020-02-27 08:57] LABS: BASOPHILS # (AUTO) 0.3 10^3/uL (0.0-0.1); BASOPHILS % (AUTO) 2 % (0-10); EOSINOPHILS # (AUTO) 0.7 10^3/uL (0.0-0.3); EOSINOPHILS % (AUTO) 6 % (0-10); HEMATOCRIT 41 % (35-52); LYMPHOCYTES # (AUTO) 3.7 10^3/uL (1.0-4.0); LYMPHOCYTES % (AUTO) 34 % (12-44); MEAN CORPUSCULAR HEMOGLOBIN 32 pg (25-34); MEAN CORPUSCULAR HGB CONC 34 g/dL (32-36); MEAN CORPUSCULAR VOLUME 93 fL (80-99); MEAN PLATELET VOLUME 9.5 fL (9.0-12.2); MONOCYTES # (AUTO) 0.9 10^3/uL (0.0-1.0); MONOCYTES % (AUTO) 9 % (0-12); NEUTROPHILS # (AUTO) 5.4 10^3/uL (1.8-7.8); NEUTROPHILS % (AUTO) 49 % (42-75); PLATELET COUNT 459 10^3/uL (130-400)
[2020-02-27 09:14] LABS: ALBUMIN 4.4 GM/DL (3.2-4.5); BILIRUBIN,TOTAL 0.6 MG/DL (0.1-1.0); CALCIUM 9.8 MG/DL (8.5-10.1); CREATININE SERUM 1.26 MG/DL (0.60-1.30); POTASSIUM 4.2 MMOL/L (3.6-5.0); TOTAL PROTEIN 6.7 GM/DL (6.4-8.2)
[~2020-05-27] MED LIST changes: +ACETAMINOPHEN 500 MG TAB (TYLENOL) CANCER CTR PO PRN; +AMLO-250 PO; -AMLO5TAB9 PO; +ASPI-1238 PO; -ASPI-983 PO; +IMMUNE GLOBULIN,GAMMA (IGG) 200 ML IV SCH; -PANT40TA3 PO; +PANT40TA52 PO; +diphenhydrAMINE 25 MG TAB (BENADRYL) CANCER CENTER PO SCH
[2020-05-27 10:15] LABS: BASOPHILS # (AUTO) 0.2 10^3/uL (0.0-0.1); BASOPHILS % (AUTO) 2 % (0-10); EOSINOPHILS # (AUTO) 0.3 10^3/uL (0.0-0.3); EOSINOPHILS % (AUTO) 3 % (0-10); HEMATOCRIT 42 % (35-52); HEMOGLOBIN 14.2 g/dL (11.5-16.0); LYMPHOCYTES # (AUTO) 3.2 10^3/uL (1.0-4.0); LYMPHOCYTES % (AUTO) 31 % (12-44); MEAN CORPUSCULAR HEMOGLOBIN 31 pg (25-34); MEAN CORPUSCULAR HGB CONC 34 g/dL (32-36); MEAN CORPUSCULAR VOLUME 92 fL (80-99); MEAN PLATELET VOLUME 9.8 fL (9.0-12.2); MONOCYTES # (AUTO) 0.7 10^3/uL (0.0-1.0); MONOCYTES % (AUTO) 7 % (0-12); NEUTROPHILS # (AUTO) 5.9 10^3/uL (1.8-7.8); NEUTROPHILS % (AUTO) 57 % (42-75); PLATELET COUNT 489 10^3/uL (130-400); WHITE BLOOD COUNT 10.3 10^3/uL (4.3-11.0)
[2020-05-27 10:34] LABS: ALBUMIN 4.4 GM/DL (3.2-4.5); BILIRUBIN,TOTAL 0.7 MG/DL (0.1-1.0); CALCIUM 9.7 MG/DL (8.5-10.1); CREATININE SERUM 1.03 MG/DL (0.60-1.30); POTASSIUM 3.6 MMOL/L (3.6-5.0); TOTAL PROTEIN 7.1 GM/DL (6.4-8.2)
== END | disposition home or self-care (01) ==
LOC: ONC 02-27 08:52
PROVIDERS: ATTEND Internal Medicine Hematology & Oncology
DX: D80.1 Nonfamilial hypogammaglobulinemia (principal); I12.9 Hypertensive chronic kidney disease with stage 1 through stage 4 chronic kidney disease, or unspecified chronic kidney disease; I25.10 Atherosclerotic heart disease of native coronary artery without angina pectoris; N18.30 Chronic kidney disease, stage 3 unspecified; E03.9 Hypothyroidism, unspecified; E78.2 Mixed hyperlipidemia; Z92.21 Personal history of antineoplastic chemotherapy; Z85.72 Personal history of non-Hodgkin lymphomas; Z90.81 Acquired absence of spleen; Z87.39 Personal history of other diseases of the musculoskeletal system and connective tissue
CPT/HCPCS: 80053; 82784 ×3; 83615; 85025; G0463; 96365; 96366; 99213; J1569

== ENCOUNTER → 2020-05-27 | Outpatient (CLI) | payer MEDICARE ==
[~2020-05-27] MED LIST changes: -ACETAMINOPHEN 500 MG TAB (TYLENOL) CANCER CTR PO PRN; -IMMUNE GLOBULIN,GAMMA (IGG) 200 ML IV SCH; -diphenhydrAMINE 25 MG TAB (BENADRYL) CANCER CENTER PO SCH
== END ==
LOC: CARD 09:24
PROVIDERS: ATTEND Internal Medicine Cardiovascular Disease
DX: I10 Essential (primary) hypertension (principal); I08.3 Combined rheumatic disorders of mitral, aortic and tricuspid valves
CPT/HCPCS: 93306

== ENCOUNTER 2020-05-28 09:02 | Outpatient (RCR) | payer MEDICARE ==
[~2020-05-28 09:02] MED LIST changes: +ACETAMINOPHEN 500 MG TAB (TYLENOL) CANCER CTR PO PRN; +IMMUNE GLOBULIN,GAMMA (IGG) 200 ML IV SCH; +diphenhydrAMINE 25 MG TAB (BENADRYL) CANCER CENTER PO SCH
== END 2020-06-19 15:37 | disposition home or self-care (01) ==
LOC: ONC 09:02
PROVIDERS: ATTEND Internal Medicine Hematology & Oncology
DX: D80.1 Nonfamilial hypogammaglobulinemia (principal); I12.9 Hypertensive chronic kidney disease with stage 1 through stage 4 chronic kidney disease, or unspecified chronic kidney disease; I25.10 Atherosclerotic heart disease of native coronary artery without angina pectoris; M06.9 Rheumatoid arthritis, unspecified; N18.30 Chronic kidney disease, stage 3 unspecified; E03.9 Hypothyroidism, unspecified; E78.2 Mixed hyperlipidemia; Z92.21 Personal history of antineoplastic chemotherapy; Z85.72 Personal history of non-Hodgkin lymphomas; Z90.81 Acquired absence of spleen; Z87.39 Personal history of other diseases of the musculoskeletal system and connective tissue
CPT/HCPCS: 96365; 96366; G0463; J1569

== ENCOUNTER 2020-08-26 10:56 | Outpatient (RCR) | payer MEDICARE | END 2020-09-24 | disposition home or self-care (01) | LOC: ONC 10:56 | PROVIDERS: ATTEND Internal Medicine Hematology & Oncology | DX: D80.1 Nonfamilial hypogammaglobulinemia (principal); I12.9 Hypertensive chronic kidney disease with stage 1 through stage 4 chronic kidney disease, or unspecified chronic kidney disease; I25.10 Atherosclerotic heart disease of native coronary artery without angina pectoris; M06.9 Rheumatoid arthritis, unspecified; N18.30 Chronic kidney disease, stage 3 unspecified; E03.9 Hypothyroidism, unspecified; E78.2 Mixed hyperlipidemia; Z92.21 Personal history of antineoplastic chemotherapy; Z85.72 Personal history of non-Hodgkin lymphomas; Z90.81 Acquired absence of spleen; Z87.39 Personal history of other diseases of the musculoskeletal system and connective tissue | CPT/HCPCS: 96365; 96366; J1569 ==

== ENCOUNTER 2020-09-25 09:02 | Outpatient (RCR) | payer MEDICARE | END 2020-12-24 | disposition home or self-care (01) | LOC: ONC 09:02 | PROVIDERS: ATTEND Internal Medicine Hematology & Oncology | DX: D80.1 Nonfamilial hypogammaglobulinemia (principal); I12.9 Hypertensive chronic kidney disease with stage 1 through stage 4 chronic kidney disease, or unspecified chronic kidney disease; N18.30 Chronic kidney disease, stage 3 unspecified; I25.10 Atherosclerotic heart disease of native coronary artery without angina pectoris; E03.9 Hypothyroidism, unspecified; E78.2 Mixed hyperlipidemia; Z92.21 Personal history of antineoplastic chemotherapy; Z85.72 Personal history of non-Hodgkin lymphomas; Z90.81 Acquired absence of spleen; Z87.39 Personal history of other diseases of the musculoskeletal system and connective tissue | CPT/HCPCS: 96365; 96366; J1569 ==

== ENCOUNTER → 2021-01-22 | Outpatient (CLI) | payer MEDICARE ==
[~2021-01-22] MED LIST changes: -ACETAMINOPHEN 500 MG TAB (TYLENOL) CANCER CTR PO PRN; -IMMUNE GLOBULIN,GAMMA (IGG) 200 ML IV SCH; -diphenhydrAMINE 25 MG TAB (BENADRYL) CANCER CENTER PO SCH
--- NOTE | 2021-01-22 11:17 | Diagnostic Imaging Report ---
INDICATION: Routine screening. Comparison is made with prior mammogram 01/10/2020 and 12/07/2018. 2-D and 3-D bilateral screening mammography was performed with CAD. Both breasts are heterogeneously dense, limiting the sensitivity of mammography. The parenchymal pattern is stable. No mass or malignant-appearing microcalcifications are seen. Axillae are unremarkable. IMPRESSION: BI-RADS Category 1 No mammographic features suspicious for malignancy are identified. ACR BI-RADS Category 1: Negative. Result letter will be mailed to the patient. Note: At least 10% of breast cancer is not imaged by mammography. Dictated by: Dictated on workstation # [id number]
== END ==
LOC: RAD 09:45
PROVIDERS: ATTEND Nurse Practitioner Family
DX: Z12.31 Encounter for screening mammogram for malignant neoplasm of breast (principal)
CPT/HCPCS: 77063; 77067

== ENCOUNTER → 2021-01-27 | Outpatient (CLI) | payer MEDICARE | LOC: LAB 08:45 | PROVIDERS: ATTEND Nurse Practitioner Family | DX: Z20.822 Contact with and (suspected) exposure to COVID-19 (principal) | CPT/HCPCS: 36415; 86769 ==

== ENCOUNTER 2021-04-02 09:03 | Outpatient (RCR) | payer MEDICARE ==
[2021-01-27 09:35] LABS: BASOPHILS # (AUTO) 0.2 10^3/uL (0.0-0.1); BASOPHILS % (AUTO) 2 % (0-10); EOSINOPHILS # (AUTO) 0.5 10^3/uL (0.0-0.3); EOSINOPHILS % (AUTO) 4 % (0-10); HEMATOCRIT 41 % (35-52); LYMPHOCYTES # (AUTO) 3.8 10^3/uL (1.0-4.0); LYMPHOCYTES % (AUTO) 36 % (12-44); MEAN CORPUSCULAR HEMOGLOBIN 32 pg (25-34); MEAN CORPUSCULAR HGB CONC 34 g/dL (32-36); MEAN CORPUSCULAR VOLUME 94 fL (80-99); MEAN PLATELET VOLUME 9.8 fL (9.0-12.2); MONOCYTES % (AUTO) 9 % (0-12); NEUTROPHILS % (AUTO) 48 % (42-75); PLATELET COUNT 389 10^3/uL (130-400); WHITE BLOOD COUNT 10.4 10^3/uL (4.3-11.0)
[2021-01-27 10:04] LABS: ALBUMIN 4.3 GM/DL (3.2-4.5); BILIRUBIN,TOTAL 0.6 MG/DL (0.1-1.0); CALCIUM 10.3 MG/DL (8.5-10.1); CREATININE SERUM 1.05 MG/DL (0.60-1.30); POTASSIUM 4.4 MMOL/L (3.6-5.0); TOTAL PROTEIN 6.6 GM/DL (6.4-8.2)
[~2021-04-02 09:03] MED LIST changes: +ACETAMINOPHEN 500 MG TAB (TYLENOL) CANCER CTR PO PRN; -CITA10TA7 PO; +CITA10TA9 PO; -FENO67CA PO; +FENO67CA14 PO; +IMMUNE GLOBULIN,GAMMA (IGG) 200 ML IV SCH; +diphenhydrAMINE 25 MG TAB (BENADRYL) CANCER CENTER PO SCH
[2021-04-02] MEDS ORDERED: FLU QUAD HIGH DOSE 240 MCG/0.7 ML 2021-22 (FLUZONE) IM ONE (11:30)
== END 2021-04-27 | disposition home or self-care (01) ==
LOC: ONC 09:03
PROVIDERS: ATTEND Internal Medicine Hematology & Oncology
DX: D80.1 Nonfamilial hypogammaglobulinemia (principal); I10 Essential (primary) hypertension; E03.9 Hypothyroidism, unspecified; E78.2 Mixed hyperlipidemia; Z92.21 Personal history of antineoplastic chemotherapy; Z85.72 Personal history of non-Hodgkin lymphomas; Z90.81 Acquired absence of spleen; Z87.39 Personal history of other diseases of the musculoskeletal system and connective tissue
CPT/HCPCS: 80053; 82232; 82784; 83883; 84155; 84165; 85025; 96365; 96366; 99213; J1569

== ENCOUNTER 2021-05-26 13:27 | Outpatient (RCR) | payer MEDICARE ==
[2021-05-26 14:07] LABS: BASOPHILS # (AUTO) 0.1 10^3/uL (0.0-0.1); BASOPHILS % (AUTO) 1 % (0-10); EOSINOPHILS # (AUTO) 0.2 10^3/uL (0.0-0.3); EOSINOPHILS % (AUTO) 2 % (0-10); HEMATOCRIT 43 % (35-52); HEMOGLOBIN 14.8 g/dL (11.5-16.0); LYMPHOCYTES # (AUTO) 3.9 10^3/uL (1.0-4.0); LYMPHOCYTES % (AUTO) 39 % (12-44); MEAN CORPUSCULAR HEMOGLOBIN 32 pg (25-34); MEAN CORPUSCULAR HGB CONC 34 g/dL (32-36); MEAN CORPUSCULAR VOLUME 93 fL (80-99); MEAN PLATELET VOLUME 9.5 fL (9.0-12.2); MONOCYTES # (AUTO) 0.5 10^3/uL (0.0-1.0); MONOCYTES % (AUTO) 5 % (0-12); NEUTROPHILS # (AUTO) 5.4 10^3/uL (1.8-7.8); NEUTROPHILS % (AUTO) 53 % (42-75); PLATELET COUNT 419 10^3/uL (130-400); WHITE BLOOD COUNT 10.1 10^3/uL (4.3-11.0)
[2021-05-26 14:27] LABS: ALBUMIN 4.3 GM/DL (3.2-4.5); BILIRUBIN,TOTAL 0.9 MG/DL (0.1-1.0); CALCIUM 10.1 MG/DL (8.5-10.1); CREATININE SERUM 1.18 MG/DL (0.60-1.30); POTASSIUM 3.7 MMOL/L (3.6-5.0); TOTAL PROTEIN 7.1 GM/DL (6.4-8.2)
== END 2021-05-28 | disposition home or self-care (01) ==
LOC: ONC 13:27
PROVIDERS: ATTEND Internal Medicine Hematology & Oncology
DX: D80.1 Nonfamilial hypogammaglobulinemia (principal); I12.9 Hypertensive chronic kidney disease with stage 1 through stage 4 chronic kidney disease, or unspecified chronic kidney disease; N18.30 Chronic kidney disease, stage 3 unspecified; E03.9 Hypothyroidism, unspecified; E78.2 Mixed hyperlipidemia; M06.9 Rheumatoid arthritis, unspecified; I25.10 Atherosclerotic heart disease of native coronary artery without angina pectoris; Z92.21 Personal history of antineoplastic chemotherapy; Z85.72 Personal history of non-Hodgkin lymphomas; Z90.81 Acquired absence of spleen
CPT/HCPCS: 36415; 80053; 82784; 85025; 96365; 99213; J1569

== ENCOUNTER → 2021-08-27 | Outpatient (CLI) | payer MEDICARE ==
[~2021-08-27] MED LIST changes: -ACETAMINOPHEN 500 MG TAB (TYLENOL) CANCER CTR PO PRN; -IMMUNE GLOBULIN,GAMMA (IGG) 200 ML IV SCH; -diphenhydrAMINE 25 MG TAB (BENADRYL) CANCER CENTER PO SCH
== END ==
LOC: CARD 09:00
PROVIDERS: ATTEND Internal Medicine Cardiovascular Disease
DX: I08.3 Combined rheumatic disorders of mitral, aortic and tricuspid valves (principal); I10 Essential (primary) hypertension; I25.10 Atherosclerotic heart disease of native coronary artery without angina pectoris
CPT/HCPCS: 93306

== ENCOUNTER → 2021-09-15 | Outpatient (CLI) | payer MEDICARE ==
[~2021-09-15] MED LIST changes: +CATHETER FLUSH 10 ML SYR IVP PRN; +REGADENOSON 0.4 MG/5 ML SYR (LEXISCAN) IV ONE
[2021-09-15 09:10] VITALS: BP 144/79
--- NOTE | 2021-09-15 12:36 | Cardiology Stress Test Report ---
Stress Test Report Date of Procedure/Referring: Date of Procedure: Sep 15, 2021 PCP Martine Messer MD Admitting Physician Raymond Hatfield DO Indications: CP Baseline Heart Rate: 73 Baseline Blood Pressure: Blood Pressure Systolic: 144 Blood Pressure Diastolic: 79 Baseline Vitals Vital Signs Date Time Temp Pulse Resp B/P (MAP) Pulse Ox O2 Delivery O2 Flow Rate FiO2 09/15/21 09:10 73 144/79 (100) Baseline EKG: Baseline EKG: NSR Summary After explaining the procedure to the patient, she signed a consent and then brought to the stress nuclear laboratory. Patient received 0.4 mg Lexiscan for stress test, ECG, heart rate and blood pressure were monitored continuously. Resting and stress dose of radio tracer were injected, imaging was acquired and reviewed in short axis, horizontal long axis and vertical long axis views. TID: 1.1 SSS: 2 SDS: 0 EF: 61 1. Patient tolerated Lexiscan well 2. Mild decrease uptake at the anterior apical segment with no significant reversibility, no significant ischemia or infarction on SPECT images 3. Normal left ventricular size, EF 61% Copy Copies To 1: RAYMOND HATFIELD BASHAR J MD Sep 15, 2021 12:36
== END ==
LOC: CARD 07:45
PROVIDERS: ATTEND Internal Medicine Cardiovascular Disease
DX: I25.10 Atherosclerotic heart disease of native coronary artery without angina pectoris (principal); I10 Essential (primary) hypertension
CPT/HCPCS: 78452; 93017; A9502

== ENCOUNTER → 2023-03-31 | Outpatient (CLI) | payer MEDICARE ==
[~2023-03-31] MED LIST changes: -CATHETER FLUSH 10 ML SYR IVP PRN; -REGADENOSON 0.4 MG/5 ML SYR (LEXISCAN) IV ONE
--- NOTE | 2023-03-31 12:53 | Diagnostic Imaging Report ---
INDICATION: Routine screening. Comparison is made with prior mammogram from 01/22/2021 and 01/10/2020. 2-D and 3-D bilateral screening mammography was performed with CAD. Both breasts are heterogeneously dense, limiting the sensitivity of mammography. The parenchymal pattern is stable. No dominant mass or malignant-appearing microcalcifications are seen. There are scattered benign calcifications. Axillae are unremarkable. IMPRESSION: No mammographic features suspicious for malignancy are identified. ACR BI-RADS Category 2: Benign findings. Result letter will be mailed to the patient. Note: At least 10% of breast cancer is not imaged by mammography. BI-RADS Category 2 Dictated by: Dictated on workstation # [id number]
== END ==
LOC: RAD 08:52
PROVIDERS: ATTEND Nurse Practitioner Family
DX: Z12.31 Encounter for screening mammogram for malignant neoplasm of breast (principal)
CPT/HCPCS: 77063; 77067